=== PATIENT | male | born 1975 | race Caucasian/White ===

== ENCOUNTER 2017-12-06 22:46 | Inpatient (IN) | payer OTHER ==
[~2017-12-06] VITALS: Ht 180.3 cm; Wt 99.9 kg
[~2017-12-06 22:46] MED LIST: ASPIR 8181 MG PO; ASPIRIN EC81 MG PO; ATENOLOL100 MG PO; CYMBALTA30 MG PO; GABAPENTIN300 MG PO; GABAPENTIN600 MG PO; HUMALOG100 UNITS/ SQ; HUMULIN SQ; LIPITOR40 MG PO; LISINOPRIL10 MG PO; NEURONTIN300 MG PO; NOVOLIN N100 UNIT/1 SQ; PLAVIX75 MG PO; TRAZODONE HCL100 MG PO
--- OUTSIDE RECORDS SUMMARY | 2017-12-06 22:49 | XMS REPORT | Clinical Summary ---
Author Author TEJINDER [facility] Address Unknown Phone Unavailable Care Team Providers Care Hospitalist Physician Name Role Phone PCP Unavailable Allergies Active Allergy Reactions Severity Noted Date Comments Levofloxacin Itching 07/29/2014 Ketorolac 12/14/2012 Severe hypertension Iodine Containing Rash Low 12/14/2012 swelling Multivitamin Morphine Hcl Rash Low 03/19/2014 Metoclopramide Hcl Rash Low 12/14/2012 AMS Ondansetron Hcl (Pf) Rash Low 12/14/2012 AMS Current Medications Prescription Sig. Disp. Refills Start End Date Status Date clopidogrel (PLAVIX) 75 Take 75 mg by mouth Active mg tablet daily. DULoxetine (CYMBALTA) 30 Take 30 mg by mouth Active MG capsule daily. aspirin 81 MG EC tablet Take 81 mg by mouth Active daily. atorvastatin (LIPITOR) 40 Take 40 mg by mouth Active MG tablet daily. HYDROcodone-acetaminophen Take 1 tablet by mouth Active (NORCO 5-325) 5-325 mg every 6 (six) hours as per tablet needed. metroNIDAZOLE (FLAGYL) Take 1 tablet (500 mg 21 tablet 0 08/02/19 Active 500 MG tablet total) by mouth 3 (three) 15 times daily. metoprolol (LOPRESSOR) 25 Take 25 mg by mouth 2 Active MG tablet (two) times daily. ISOSORBIDE DINITRATE ORAL Take by mouth. Active lisinopril Take 10 mg by mouth Active (PRINIVIL,ZESTRIL) 10 MG daily. tablet insulin lispro (HUMALOG) Inject 18 Units Active 100 unit/mL InPn subcutaneously 3 (three) times daily with meals. insulin glargine Inject 65 Units Active (BASAGLAR KWIKPEN) 100 subcutaneously nightly. unit/mL (3 mL) InPn escitalopram oxalate Take 10 mg by mouth Active (LEXAPRO) 10 MG tablet daily. zolpidem (AMBIEN) 10 mg Take 10 mg by mouth as Active tablet needed for Insomnia. Active Problems Problem Noted Date Dehydration 07/29/2014 DM type 1 (diabetes mellitus, type 1) ([facility]) 07/29/2014 Abdominal pain, other specified site 03/19/2014 CAD (coronary artery disease) 03/19/2014 Overview: As per patient report he had an DE 4 years ago and had 2 stent placed. Rash 03/19/2014 Hyperglycemia 03/18/2014 Social History Tobacco Use Types Packs/Day Years Used Date Never Smoker Alcohol Use Drinks/Week oz/Week Comments No Sex Assigned at Date Recorded Not on file Last Filed Vital Signs Not on file Plan of Treatment Health Maintenance Due Date Last Done Comments INFLUENZA VACCINE 04/09/2018 Results Not on fileafter 12/05/2016
--- OUTSIDE RECORDS SUMMARY | 2017-12-06 22:49 | XMS REPORT ---
Author Author [facility] Address Unknown Phone Unavailable Care Team Providers Care Otr Tanker Truck Driver Name Role Phone ARTURO RL Unavailable Unavailable ANTOINETTE ROSA Unavailable Unavailable ELYSIA CURRIE Unavailable Unavailable Problems This patient has no known problems. Allergies, Adverse Reactions, Alerts This patient has no known allergies or adverse reactions. Medications This patient has no known medications. Results Test Description Test Time Test Comments Text Results Atomic Results Result Comments CT ABDOMEN/PELVIS WO [facility] [address] [place] [address] Patient Name: COLLEEN KAPOOR MR #: [id number] : 1975 Age/Sex: 42/M Req #: [id number] Adm Physician: Ordered by: CLAUDINE BARKER Report #: [id number] Location: ER Room/Bed: _ Procedure: [id number] CT/CT ABDOMEN/PELVIS WO Exam Date: Exam Time: REPORT STATUS: Signed PROCEDURE: CT ABDOMEN AND PELVIS WITHOUT CONTRAST TECHNIQUE: The abdomen and pelvis were scanned utilizing a multidetector helical scanner from the diaphragm to the lesser trochanter without IV or oral contrast material per physician's order. Coronal and sagittal multiplanar reformations were obtained. DLP: 881.91 mGy-cm COMPARISON: [facility], CT, CT ABDOMEN/ PELVIS WO, 08/05/2016, 11:59. INDICATIONS: BACK PAIN, ABDOMINAL PAIN FINDINGS: ABSENCE OF INTRAVENOUS CONTRAST DECREASES SENSITIVITY FOR DETECTION OF FOCAL LESIONS AND VASCULAR PATHOLOGY. LOWER THORAX: Coronary artery calcification. HEPATOBILIARY: No focal hepatic lesions. No biliary ductal dilatation. Gallbladder is absent. SPLEEN: No splenomegaly. PANCREAS: No focal masses or ductal dilatation. ADRENALS: No adrenal nodules. KIDNEYS/URETERS: No hydronephrosis, stones or solid mass lesions. Cystic lesion in the interpolar region of the right kidney appears unchanged. PELVIC ORGANS/BLADDER: Unremarkable. PERITONEUM / RETROPERITONEUM: No free air or fluid. LYMPH NODES: No lymphadenopathy. VESSELS: Vascular calcification. GI TRACT: No distention or wall thickening. Surgical clips near the cecum. BONES AND SOFT TISSUES: Mild degenerative changes of the spine. IMPRESSION: No acute abnormality within the abdomen or pelvis. Cystic lesion of the right kidney appears unchanged. Oly Forbes D.O. Dictated by: Oly Forbes D.O. on 2017 at 16:04 Electronically approved by: Oly Forbes D.O. on 2017 at 16:04 Dictated By: OLY FORBES DO 1604 Transcribed By: VENITA on 04/17/17 1604 COPY TO: CLAUDINE BARKER Stress Test - Treadmill ONLY [place] [address] Patient Name : COLLEEN KAPOOR MR #: [id number] : 1975 Age/Sex: 42/M Adm Physician : ANTOINETTE ROSA MD Admit Date : Location : [place] Room/Bed : __ REPORT: Cardiology Report DATE OF STUDY: April PROCEDURE TITLE Rest stress single isotope with SPECT imaging with pharmacologic stress and gated SPECT imaging. INDICATIONS: Chest pain. PROCEDURE: Pharmacologic stress testing was performed with regadenoson per protocol. Heart rate was 106 beats per minute at baseline and increased to 136 beats per minute during the regadenoson infusion. The rest blood pressure was 137/88 and increased to 161/93 mmHg, which is a normal response. The patient did not develop chest pain during the procedure. The resting electrocardiogram demonstrated sinus tachycardia RSR prime. There were no ST segment changes consistent with myocardial ischemia. Myocardial perfusion imaging was performed at rest following the injection of 11 mCi of tetrofosmin. At peak pharmacologic effect, the patient was injected with 31.7 millicuries of tetrofosmin. Gated post tomographic imaging was performed. FINDINGS: The overall quality of the study is fair. Left ventricular cavity is noted to be normal size on the rest and stress studies. SPECT images demonstrate homogeneous tracer distribution throughout the myocardium. Gated SPECT imaging reveals normal myocardial thickening and wall motion. Left ventricular ejection fraction was calculated to be 64%. IMPRESSION: Myocardial perfusion imaging is normal. Overall left ventricular systolic function was normal without regional wall motion abnormalities. Job#: [id number] Signature Date Dictated By: ANTOINETTE ROSA MD Transcribed By: [facility] on 04/17/17 < Electronically signed by ANTOINETTE ROSA MD><<Signature on File>>04/23/17 4979 COPY TO: MRI RIGHT KNEE WO [place] [address] Patient Name: COLLEEN KAPOOR MR #: [id number] : 1975 Age/Sex: 41/M Req #: [id number] Adm Physician: Ordered by: ELYSIA CURRIE DO Report #: [id number] Location: [facility] Room/Bed: Procedure: [id number] MRI/MRI RIGHT KNEE WO Exam Date: 03/28/17 Exam Time: 1010 REPORT STATUS: Signed Right knee MRI without contrast. History: Knee pain. Sprain. Twisting injury. Comparison: None. Technique: Multiplanar multi-sequence MRI of the knee without contrast. Findings: Medial compartment: No meniscal tear, cartilage abnormality, or MCL tear. Lateral compartment: No meniscal tear or cartilage abnormality. The LCL complex is normal. There is a bone contusion/microtrabecular fracture with bone marrow edema at the posterior lateral tibial plateau with mild adjacent soft tissue edema. No definite cortical fracture is seen. Findings are best seen on coronal series 5 image 15 through 17 and sagittal series 4 image 29 through 34. Intercondylar notch: The ACL and PCL are intact. Patellofemoral compartment: No chondromalacia or patellar dislocation. Extensor mechanism: The quadriceps and patellar tendons are normal. Other findings: There is a joint effusion and synovitis. There is no acute fracture, subluxation or avascular necrosis. IMPRESSION: Bone contusion/microtrabecular fracture with bone marrow edema at the posterior lateral tibial plateau with mild adjacent soft tissue edema. No definite cortical fracture is seen. Signed by: Dr. Mejia Hickman M.D. on 03/28/2017 11:38 AM Dictated By: MEJIA HICKMAN MD, MD 1138 Transcribed By: RYAN on 03/28/17 1138 COPY TO: ELYSIA CURRIE DO
[2017-12-06] MEDS ORDERED: PANTOPRAZOLE 40 MG 10ML VIAL IV STA (23:04)
[2017-12-06] MEDS ORDERED: HYDROMORPHONE 1MG/1ML INJ IV STA (23:04)
[2017-12-06] MEDS ORDERED: SODIUM CHLORIDE 0.9% 500ML 500 ML IV ONE (23:15)
[2017-12-06 23:24] LABS: BASOPHILS # (AUTO) 0.1 (0.0-0.1); BASOPHILS % 1.1 % (0.0-1.0); EOSINOPHILS # (AUTO) 0.2 (0.0-0.4); EOSINOPHILS % 2.5 % (0.0-6.0); HEMATOCRIT 39.6 % (38.2-49.6); HEMOGLOBIN 13.2 g/dL (14.0-18.0); LYMPHOCYTES % 26.8 % (18.0-39.1); MEAN CORPUSCULAR HEMOGLOBIN 27.7 pg (28-32); MEAN CORPUSCULAR HGB CONC 33.3 g/dL (31-35); MEAN CORPUSCULAR VOLUME 83.2 fL (81-99); MONOCYTES # (AUTO) 0.7 (0.2-0.8); MONOCYTES % 8.6 % (4.4-11.3); NEUTROPHILS # (AUTO) 4.6 (2.1-6.9); NEUTROPHILS % 60.6 % (38.7-80.0); PLATELET COUNT 270 x10e3/uL (140-360); RED BLOOD COUNT 4.76 x10e6/uL (4.3-5.7); RED CELL DISTRIBUTION WIDTH 13.6 % (11.7-14.4)
[2017-12-06 23:28] LABS: INR 0.95; PARTIAL THROMBOPLASTIN TIME 28.2 seconds (23.8-35.5); PROTHROMBIN TIME 11.9 seconds (11.9-14.5)
[2017-12-06 23:30] LABS: BILIRUBIN,URINE NEGATIVE (NEGATIVE); CLARITY,URINE CLEAR (CLEAR); COLOR,URINE YELLOW (YELLOW); KETONES,URINE TRACE (NEGATIVE); LEUKOCYTE ESTERASE ,URINE NEGATIVE (NEGATIVE); NITRITE,URINE NEGATIVE (NEGATIVE); PROTEIN,URINE DIPSTICK 1+ (NEGATIVE); URINE UROBILINOGEN 0.2 mg/dL (0.2 - 1)
[2017-12-06 23:37] LABS: ALANINE AMINOTRANSFERASE 18 IU/L (0-55); ALBUMIN/GLOBULIN RATIO 1.2 (0.8-2.0); ALKALINE PHOSPHATASE 128 IU/L (40-150); ANION GAP 16.3 mmol/L (8-16); BLOOD UREA NITROGEN 18 mg/dL (7-26); BUN/CREATININE RATIO 15 (6-25); CALCIUM 9.7 mg/dL (8.4-10.2); CARBON DIOXIDE 20 mmol/L (22-29); CHLORIDE 102 mmol/L (98-107); CREATINE KINASE 112 IU/L (30-200); CREATININE, SERUM 1.19 mg/dL (0.72-1.25); EST GLOMERULAR FILTRATION RATE > 60 ML/MIN (60-); GLUCOSE 346 mg/dL (74-118); POTASSIUM 4.3 mmol/L (3.5-5.1); SODIUM 134 mmol/L (136-145)
[2017-12-06 23:41] LABS: BACTERIA,URINE RARE /HPF; WBC,URINE (MAN) 0-5 /HPF (0-5)
[2017-12-06 23:42] LABS: EPITHELIAL CELLS,URINE RARE /LPF; MUCUS,URINE MODERATE (RARE)
[2017-12-06 23:43] LABS: AMPHETAMINES SCREEN,URINE NEGATIVE (NEGATIVE); BENZODIAZEPINES SCREEN,URINE NEGATIVE (NEGATIVE); PHENCYCLIDINE SCREEN,URINE NEGATIVE (NEGATIVE)
[2017-12-07] VITALS (7 sets, daily range): BP systolic 102–138; BP diastolic 64–75
[2017-12-07] MEDS ORDERED: SODIUM CHLORIDE 0.9% 50ML 50 ML ONE (02:14)
[2017-12-07] MEDS ORDERED: IOPAMIDOL 370 MG/ML 200 ML INFUS..BTL INJ ONE (02:14)
--- NOTE | 2017-12-07 02:38 | Diagnostic Imaging Report ---
EXAM: CT CHEST W DATE: 12/07/2017 11:04 PM INDICATION: Sharp chest pain, concern for pulmonary embolism. Recent CABG. COMPARISON: None TECHNIQUE: Multidetector CT scanning of the chest was performed. Coronal and sagittal multiplanar reformations were obtained. IV Contrast: 75 ml Isovue 370/300 FINDINGS: Motion artifact in the lower lobes precludes evaluation of the segmental/subsegmental arteries. Otherwise no evidence of acute more central pulmonary embolism to the lobar level. Main pulmonary artery is normal in caliber, 2.2 cm. LUNGS AND PLEURA: Small left pleural effusion with minimal associated atelectasis. HEART, MEDIASTINUM, VESSELS: Postsurgical changes status post recent median sternotomy and CABG with mild fluid and stranding in the anterior mediastinum and along the sternum. Mild cardiomegaly with small pericardial effusion. Coronary artery calcifications. Incidental subcentimeter thyroid nodules. No adenopathy. UPPER ABDOMEN: Unremarkable. MUSCULOSKELETAL: No acute findings. IMPRESSION: 1. Degraded by motion artifact. Otherwise no evidence of acute pulmonary embolism, as above. 2. Postsurgical changes status post recent median sternotomy and CABG. 3. Small pericardial effusion and small left effusion. Signed by: Dr Rocio Wren MD on 12/07/2017 2:34 AM
[2017-12-07] MEDS ORDERED: HYDROMORPHONE 2MG/ML INJ IV ONE (03:00)
[2017-12-07] MEDS ORDERED: HYDROMORPHONE 1MG/1ML INJ IV PRN (03:15)
[2017-12-07] MEDS ORDERED: DIPHENHYDRAMINE HCL 25 MG CAP PO ONE ×2 (03:15)
--- OUTSIDE RECORDS SUMMARY | 2017-12-07 03:18 | XMS REPORT | Clinical Summary ---
Author Author TEJINDER [facility] Address Unknown Phone Unavailable Care Team Providers Care Inspector Watch Parts Name Role Phone PCP Unavailable Allergies Active [...] DM type 1 (diabetes mellitus, type 1) ([facility]) 07/29/2014 Abdominal pain, other specified site 03/19/2014 CAD (coronary artery disease) 03/19/2014 Overview: As per patient report he had an SC 4 years ago and had 2 stent placed. Rash 03/19/2014 Hyperglycemia 03/18/2014 Social History Tobacco Use Types Packs/Day Years Used Date Never Smoker Alcohol Use Drinks/Week oz/Week Comments No Sex Assigned at Date Recorded Not on file Last Filed Vital Signs Not on file Plan of Treatment Health Maintenance Due Date Last Done Comments INFLUENZA VACCINE 04/09/2018 Results Not on fileafter 12/06/2016
[2017-12-07] MEDS ORDERED: DEXTROSE 50% SYRINGE 50 ML IV PRN (04:00)
[2017-12-07] MEDS ORDERED: ISOSORBIDE MONO30 MG PO (05:02)
[2017-12-07] MEDS ORDERED: METOPROLOL TART50 MG PO (05:02)
[2017-12-07] MEDS: FAMOTIDINE 20 MG/2 ML VIAL IV SCH ×2 (05:30→15:15)
[2017-12-07] MEDS: HYDROMORPHONE 2MG/ML INJ IV PRN ×6 (06:34→22:26)
[2017-12-07 07:03] LABS: CREATINE KINASE MB 1.6 ng/mL (0-5.0)
[2017-12-07] MEDS: INSULIN REGULAR, HUMAN 100 UNIT/1 ML 3ML VIAL SQ SCH ×4 (07:30→20:47)
[2017-12-07] MEDS: CLOPIDOGREL BISULFATE 75 MG TAB PO SCH (09:00)
[2017-12-07] MEDS: ASPIRIN 325 MG TAB EC PO SCH (09:00)
--- NOTE | 2017-12-07 10:39 | Consultation ---
DATE OF CONSULTATION: December 07, 2017 CARDIOLOGY CONSULTATION REQUESTING PHYSICIAN: Dr. Smith REASON FOR CONSULTATION: Chest pain. HISTORY OF PRESENT ILLNESS: Mr. Davila is a 42-year-old male who is well known to our practice and was actually seen in our clinic last week. He recently had 4-vessel bypass 3 weeks ago. He states that he came into the ER yesterday due to ongoing chest pain on the right side for the last 2 to 3 days. He states that the pain is aching and severe and scattered on the right side of his chest. He states that this pain does get worse upon deep breaths and also with exertion. His incision site from his bypass is still healing. He also reports swelling on his left lower extremity where his vessels were harvested. At the time of this consultation, he denies any shortness of breath, fever, chills, abdominal pain, nausea, vomiting, constipation or urinary problems. REVIEW OF SYSTEMS: Negative, except as mentioned above. PAST MEDICAL HISTORY: Includes: 1. Coronary artery disease, status post 4-vessel bypass 3 weeks ago. 2. Diabetes mellitus. 3. Hyperlipidemia. 4. TIAs. 5. Pericarditis. PAST SURGICAL HISTORY: Cholecystectomy, appendectomy, ankle surgery. SOCIAL HISTORY: Denies any illicit drug use. He is and has children. OBJECTIVE VITALS: Temperature 97.0, pulse 99, respiratory rate 20, blood pressure 138/71. Oxygen saturation 98% on room air. LABS: WBC 7.58, hemoglobin 13.2, hematocrit 39.6, platelets 270. Sodium 134, potassium 4.3, BUN 18, creatinine 1.19. Glucose 215. Calcium 9.7. AST 17, ALT 18, alkaline phosphatase 128, CK-MB 1.60, troponin 0.004. BNP 42. Toxicology positive for opiates. Chest CT with no evidence of acute pulmonary emboli, postsurgical changes status post coronary artery bypass graft, a small pericardial effusion and a small left effusion noted. TELEMETRY: Sinus rhythm. CARDIOVASCULAR MEDICATIONS 1. Plavix 75 p.o. daily. 2. Aspirin 325 p.o. daily. PHYSICAL EXAMINATION GENERAL: Alert and oriented times 3, resting comfortably in bed, does not appear to be in any acute distress. NECK: Supple. No JVD noted. LUNGS: Clear to auscultation throughout. No wheezing, rhonchi or crackles. CARDIOVASCULAR: Regular rate and rhythm. Normal S1, S2. S4 auscultated. ABDOMEN: Soft and nontender. LOWER EXTREMITIES: There are 2+ pedal pulses. Trace edema to the left lower extremity. IMPRESSION 1. Atypical chest pain. 2. Coronary artery disease, status post coronary artery bypass graft 3 weeks ago. 3. History of pericarditis. 4. Hypertension. 5. Hyperlipidemia. 6. Diabetes mellitus, type 2. PLAN: We will obtain a repeat echocardiogram this morning. Maintain the patient on telemetry. Pain in the right upper chest likely musculoskeletal, status post sternotomy and recent surgery. Consider pain community resource consultant. Continue the above-listed cardiac medications. In addition, add a beta sandra and a statin. Thank you, Dr. Smith, for this consultation and allowing us to participate in this patient's care. Dictated by Cecile Ellison NP. Job#: [id number]
[2017-12-07] MEDS: DIPHENHYDRAMINE HCL 25 MG CAP PO PRN ×2 (10:45→21:32)
[2017-12-07] MEDS: PROMETHAZINE 25MG/ NS 50ML (IV) IV PRN ×2 (12:30→18:49)
[2017-12-07 15:17] LABS: CREATINE KINASE MB 1.9 ng/mL (0-5.0)
[2017-12-07] MEDS: ISOSORBIDE MONONITRATE 30 MG TAB CR PO SCH (16:20)
[2017-12-07] MEDS: METOPROLOL TARTRATE 50 MG TAB PO SCH (16:21)
[2017-12-07] MEDS ORDERED: ATORVASTATIN 20 MG TAB PO SCH (21:00)
[2017-12-07 22:36] LABS: CREATINE KINASE MB 1.7 ng/mL (0-5.0)
[2017-12-08] VITALS (8 sets, daily range): BP systolic 107–121; BP diastolic 59–71
[2017-12-08] MEDS: HYDROMORPHONE 2MG/ML INJ IV PRN ×7 (01:30→23:04)
[2017-12-08] MEDS: PROMETHAZINE 25MG/ NS 50ML (IV) IV PRN ×4 (01:30→21:00)
[2017-12-08] MEDS: FAMOTIDINE 20 MG/2 ML VIAL IV SCH ×2 (04:15→15:38)
[2017-12-08 07:05] LABS: BASOPHILS # (AUTO) 0.1 (0.0-0.1); BASOPHILS % 1.1 % (0.0-1.0); EOSINOPHILS # (AUTO) 0.4 (0.0-0.4); EOSINOPHILS % 5.4 % (0.0-6.0); HEMATOCRIT 39.6 % (38.2-49.6); HEMOGLOBIN 12.9 g/dL (14.0-18.0); LYMPHOCYTES # (AUTO) 1.8 (1.0-3.2); MEAN CORPUSCULAR HGB CONC 32.6 g/dL (31-35); MEAN CORPUSCULAR VOLUME 86.1 fL (81-99); MONOCYTES # (AUTO) 0.6 (0.2-0.8); MONOCYTES % 8.8 % (4.4-11.3); NEUTROPHILS # (AUTO) 3.6 (2.1-6.9); NEUTROPHILS % 56.1 % (38.7-80.0); PLATELET COUNT 262 x10e3/uL (140-360); RED CELL DISTRIBUTION WIDTH 13.9 % (11.7-14.4)
[2017-12-08 07:41] LABS: ALANINE AMINOTRANSFERASE 17 IU/L (0-55); ALBUMIN 3.5 g/dL (3.5-5.0); ALBUMIN/GLOBULIN RATIO 1.1 (0.8-2.0); ALKALINE PHOSPHATASE 122 IU/L (40-150); ANION GAP 11.7 mmol/L (8-16); BLOOD UREA NITROGEN 13 mg/dL (7-26); BUN/CREATININE RATIO 16 (6-25); CALCIUM 9.4 mg/dL (8.4-10.2); CARBON DIOXIDE 26 mmol/L (22-29); CHLORIDE 105 mmol/L (98-107); CHOL/HDL RATIO 6.3 (3.9-4.7); CHOLESTEROL 214 MD/DL (0-199); CREATININE, SERUM 0.81 mg/dL (0.72-1.25); EST GLOMERULAR FILTRATION RATE > 60 ML/MIN (60-); GLUCOSE 171 mg/dL (74-118); HDL CHOLESTEROL 34 MG/DL (40-60); LDL CHOLESTEROL 145 MG/DL (60-130); POTASSIUM 3.7 mmol/L (3.5-5.1); SODIUM 139 mmol/L (136-145); TRIGLYCERIDES 173 MG/DL (0-149)
[2017-12-08] MEDS: ISOSORBIDE MONONITRATE 30 MG TAB CR PO SCH ×2 (08:19→17:36)
[2017-12-08] MEDS: METOPROLOL TARTRATE 50 MG TAB PO SCH ×2 (08:19→17:36)
[2017-12-08] MEDS: CLOPIDOGREL BISULFATE 75 MG TAB PO SCH (08:19)
[2017-12-08] MEDS: ASPIRIN 325 MG TAB EC PO SCH (08:19)
[2017-12-08] MEDS: INSULIN REGULAR, HUMAN 100 UNIT/1 ML 3ML VIAL SQ SCH ×4 (08:21→21:00)
[2017-12-08] MEDS ORDERED: SODIUM CHLORIDE 0.9% 250ML 250 ML ONE (15:10)
[2017-12-08] MEDS: CELECOXIB 100 MG CAP PO SCH (17:36)
--- NOTE | 2017-12-08 19:42 | Progress Note ---
DATE: December 08, 2017 CARDIOLOGY PROGRESS NOTE: SUBJECTIVE: The patient continues to complain of right-sided chest pain that is worse upon coughing and touching of his right side. Otherwise, denies any palpitations or cough. OBJECTIVE VITAL SIGNS: Temperature 97.8, pulse 95, respiratory rate 20. Blood pressure 113/64, oxygen saturation 95% on room air. General: Alert and oriented x3, resting comfortably in bed. Does not appear to be in any acute distress. Lungs: Clear to auscultation throughout, no wheezing, no rhonchi or crackles. Cardiovascular: Regular rate and rhythm. Normal S1 and S2. S4 auscultated. Abdomen: Soft and nontender. Lower extremities: 2+ pedal pulses. No edema. CARDIOVASCULAR MEDICATIONS: Isosorbide 30 mg p.o. b.i.d., Plavix 75 p.o. daily. Aspirin 325 p.o. daily. Atorvastatin 20 p.o. nightly. Celebrex 100 mg p.o. b.i.d. LABS: WBC 6.46, hemoglobin 12.9, hematocrit 39.6, platelets 262,000. Sodium 39, potassium 3.7, BUN 13, creatinine 0.81. Glucose 204. AST 14, ALT 17 vital. Triglycerides 173, cholesterol 214. LDL 145. TELEMETRY: Sinus rhythm. ASSESSMENT: 1. Atypical chest pain, likely musculoskeletal . 2. Coronary artery disease, status post coronary artery bypass graft 3 weeks ago. 3. History of pericarditis. 4. Hypertension. 5. Hyperlipidemia. 6. Diabetes mellitus type 2. 7. Dyslipidemia. PLAN: Up-titrate statins to 40 mg, atorvastatin. Continue the above medications. Celebrex started today for musculoskeletal pain. We will continue to follow the patient closely. Okay with discharge and followup with cardiology in the next 1-2 weeks. Will continue to monitor. Dictated by: Cecile Ellison NP Job#: [id number]
[2017-12-08] MEDS ORDERED: ATORVASTATIN 40 MG TAB PO SCH (21:00)
[2017-12-08] MEDS ORDERED: ATORVASTATIN 20 MG TAB PO SCH (21:00)
[2017-12-09] VITALS: BP 114/58
[2017-12-09] MEDS: DIPHENHYDRAMINE HCL 25 MG CAP PO PRN (01:17)
[2017-12-09] MEDS: FAMOTIDINE 20 MG/2 ML VIAL IV SCH ×2 (03:01→15:17)
[2017-12-09] MEDS: PROMETHAZINE 25MG/ NS 50ML (IV) IV PRN ×2 (03:02→09:30)
[2017-12-09] MEDS: HYDROMORPHONE 2MG/ML INJ IV PRN ×4 (03:02→13:21)
[2017-12-09 04:00] VITALS: BP 113/66
[2017-12-09 07:10] VITALS: BP 119/70
[2017-12-09 07:25] VITALS: BP 119/70
[2017-12-09] MEDS: CELECOXIB 100 MG CAP PO SCH (08:30)
[2017-12-09] MEDS: METOPROLOL TARTRATE 50 MG TAB PO SCH (08:30)
[2017-12-09] MEDS: CLOPIDOGREL BISULFATE 75 MG TAB PO SCH (08:30)
[2017-12-09] MEDS: ISOSORBIDE MONONITRATE 30 MG TAB CR PO SCH (08:30)
[2017-12-09] MEDS: ASPIRIN 325 MG TAB EC PO SCH (08:30)
[2017-12-09] MEDS: INSULIN REGULAR, HUMAN 100 UNIT/1 ML 3ML VIAL SQ SCH ×2 (08:35→11:51)
[2017-12-09 11:35] VITALS: BP 106/64
[2017-12-09] MEDS ORDERED: COLCHICINE 0.6 MG TAB PO SCH (12:30)
--- NOTE | 2017-12-09 14:05 | Progress Note ---
DATE: December 09, 2017 CARDIOLOGY PROGRESS NOTE SUBJECTIVE: Reporting diffuse generalized pain, most pronounced in chest and lower extremities. OBJECTIVE VITAL SIGNS: Temperature 97.6, heart rate 92, respiratory rate 19, blood pressure 106/64, O2 sat 95% on room air. GENERAL: No acute distress. CHEST: Clear to auscultation. CARDIOVASCULAR: Regular rate and rhythm. Normal S1 and S2. No S3. No S4. Sternotomy scar noted. ABDOMEN: Soft, nontender. EXTREMITIES: Trace edema. Tenderness to light touch to lower extremities. CARDIOVASCULAR MEDICATIONS: Reviewed. On: 1. Isosorbide mononitrate 30 mg b.i.d. 2. Metoprolol tartrate 50 mg b.i.d. 3. Clopidogrel 75 mg daily. 4. Aspirin 325 mg daily. 5. Atorvastatin 40 mg nightly. ASSESSMENT: Patient with history of coronary artery disease. Chronic pain reported. Recommend continued monitoring from a cardiovascular standpoint, resuming cardiovascular medications as well as consideration of pain management consultation. When he was in [facility], he reported similar complaints. The pain was at the time somewhat difficult to control. However, the patient did achieve reported pain control for discharge. Did not follow up with pain management as outpatient. Component of neuropathy is highly suspected. Job#: [id number]
[2017-12-09] MEDS ORDERED: ACETAMINOPHEN 325 MG TAB PO PRN (15:45)
[2017-12-09 16:28] VITALS: BP 169/95
--- NOTE | 2017-12-10 21:45 | Discharge Summary ---
Patient is a 42-year-old male who had a history of coronary artery bypass grafting in the past, came to the hospital complaining of severe chest pain. Patient was seen already by Dr. Gee, baby registry sales consultant. Cardiac enzymes are completely normal. The EKG is unremarkable. There is no evidence of any ST segment elevation or depression. Dr. Gee, cardiology, saw the patient. His impression was atypical chest pain, most likely costochondral; hypertension; history of pericarditis. Echocardiogram was done. It showed good ejection fraction of 60% to 65% and very small pleural effusion, most likely secondary to the bypass. Patient is demanding to go back to the Dilaudid. Apparently, he has been watching the clock and taking Dilaudid round the clock whether he is in pain or not. When I discontinued Dilaudid, he was extremely upset about that. He did not want to stop the Dilaudid. I told the patient that right now, we do not have any evidence of any significant condition to keep the patient in the hospital. The baby registry sales consultant also agrees with that. We are suspecting that the patient might have some addiction to Dilaudid. The pain is completely out of proportion to the pain that he demand Dilaudid, so I explained the patient that he is most likely going to be going home soon that he does not need to take Dilaudid until the last minute of the discharge. So, we discontinued Dilaudid. The patient is refusing to take any other medication and he will be going home today. We asked the patient to follow up with his a regular baby registry sales consultant or with Dr. Gee as an outpatient or go to the ER should the chest pain worsen. The pain is on the right side, atypical. Workup has been completely negative so far. Blood pressure 106/64, temperature 97.6, heart rate 92 per minute, respiratory rate 19 per minute, oxygen saturation 95%. Lab work shows sodium 139, potassium 3.7, chloride 105, CO2 26, BUN 13, creatinine 0.81, glucose 171. On the CBC, white blood count 6.46, hemoglobin 12.9, hematocrit 39.6, platelet count 262,000. PT 11.9, PTT 28.2, INR was 0.95. AST 14, ALT 17, total bilirubin 0.5, alkaline phosphatase 122. He even had a CT scan of the chest which showed no evidence of pulmonary embolism. It showed postsurgical changes status post recent CABG, small pericardial effusion, small left pleural effusion. Nothing significant to explain the pain. Patient as I said is going to be going home today. Dr. Gee, cardiology, already cleared him for discharge. He will continue with home medications which include metoprolol 50 mg twice a day, Lipitor 40 mg daily. He is also on aspirin 81 mg daily. Patient is told to go to the emergency room should the symptoms worsen or to see his baby registry sales consultant as an outpatient. BEVERLEY HOLLINGSWORTH MD Job#: [id number] GE
--- NOTE | 2017-12-11 15:43 | Discharge Summary ---
The patient is refusing to sign any discharge instruction. He is refusing to take any medications. So, technically he is leaving against medical advice and he is refusing for us to give him any discharge instructions or discharge medications. BEVERLEY HOLLINGSWORTH MD Job#: [id number]
== END 2017-12-09 17:23 | disposition home or self-care (01) | DRG 313 ==
LOC: ER 22:46 → ERHOLD 12-07 03:15 → MED/SURG 12-07 03:38
DX: R07.89 Other chest pain (principal); I10 Essential (primary) hypertension; I25.119 Atherosclerotic heart disease of native coronary artery with unspecified angina pectoris; E78.5 Hyperlipidemia, unspecified; E11.8 Type 2 diabetes mellitus with unspecified complications; Z79.4 Long term (current) use of insulin
CPT/HCPCS: 36415; 71260; 80053; 80061; 80307; 81001; 82550; 82553; 82948; 83735; 83880; 84484; 85025; 85379; 85610; 85730; 93005; 93306; 99284; J2550; J7040; J7050; Q9967

== ENCOUNTER 2018-05-04 13:37 | Emergency (ER) | payer OTHER ==
[~2018-05-04] VITALS: Ht 180.3 cm; Wt 99.8 kg
[~2018-05-04 13:37] MED LIST changes: +ISOSORBIDE MONO30 MG PO; +METOPROLOL TART50 MG PO
--- OUTSIDE RECORDS SUMMARY | 2018-05-04 13:41 | XMS REPORT | Clinical Summary ---
Author Author [facility] Address Unknown Phone Unavailable Care Team Providers Care Mine Production Engineer Name Role Phone Mariano Novak MD PCP Allergies Active Allergy Reactions Severity Noted Date Comments Morphine 12/10/2017 Metoclopramide Hcl 12/10/2017 Ketorolac 12/10/2017 Ondansetron Hcl 12/10/2017 Current Medications Prescription Sig. Disp. Refills Start End Date Status Date atorvastatin (LIPITOR) 40 Take 40 mg by mouth Active MG tablet daily. clopidogrel (PLAVIX) 75 Take 75 mg by mouth Active mg tablet daily. DULoxetine (CYMBALTA) 30 Take 30 mg by mouth Active MG capsule daily. insulin GLARGINE (LANTUS Inject 65 Units under the Active SOLOSTAR) 100 unit/mL skin daily. injection (pen) HUMALOG U-100 INSULIN 100 INJECT 20 UNITS 6 11/14/19 Active unit/mL injection SUBCUTANEOUSLY THREE 18 TIMES A DAY BEFORE MEALS. lisinopril Take 10 mg by mouth Active (PRINIVIL,ZESTRIL) 10 mg daily. tablet isosorbide mononitrate TAKE ONE (1) TABLET(S) BY 1 11/16/19 Active (IMDUR) 30 MG 24 hr MOUTH TWICE A DAY. 18 tablet nitroglycerin (NITROSTAT) DISSOLVE ONE (1) 0 11/14/19 Active 0.4 MG SL tablet TABLET(S) UNDER THE 18 TONGUE EVERY 5 MINUTES NEEDED FOR CHEST PAIN. pantoprazole (PROTONIX) TAKE ONE (1) TABLET(S) BY 1 11/23/19 Active 40 MG EC tablet MOUTH TWICE A DAY BEFORE 18 MEALS. zolpidem (AMBIEN) 5 MG TAKE ONE (1) TABLET(S) BY 0 11/28/19 Active tablet MOUTH AT BEDTIME 18 NEEDED. aspirin (ECOTRIN) 81 MG Take 81 mg by mouth Active enteric coated tablet daily. metoprolol succinate XL Take 1 tablet by mouth 3 11/21/19 Active (TOPROL-XL) 50 mg 24 hr daily. 18 tablet tiZANidine (ZANAFLEX) 4 Take 1 tablet by mouth 0 11/21/19 Active MG tablet every 8 (eight) hours as 18 needed. furosemide (LASIX) 40 Take 40 mg by mouth Active mg/4 mL solution oral daily. solution aspirin 325 MG tablet TAKE ONE (1) TABLET(S) BY 0 11/22/19 12/11/19 Discontin MOUTH EVERY EIGHT HOURS 18 18 ued WITH FOOD. FOR 1 WEEK THEN CONTINUE WITH ASPIRIN 81MG DAILY. metoprolol tartrate Take 50 mg by mouth 2 12/11/19 Discontin (LOPRESSOR) 25 mg tablet (two) times a day. 18 ued promethazine (PHENERGAN) TAKE ONE (1) TABLET(S) BY 0 11/28/19 01/17/20 Discontin 12.5 MG tablet MOUTH EVERY TWELVE HOURS 18 18 ued NEEDED. Active Problems Problem Noted Date SVT (supraventricular tachycardia) (HCC) 01/15/2018 Hypovolemia 01/14/2018 Inappropriate sinus tachycardia 01/12/2018 Coronary artery disease 01/12/2018 High cholesterol 01/12/2018 Diabetes mellitus type I (HCC) 01/12/2018 Stroke (HCC) 01/12/2018 Overview: TIA X2 Hx of CABG 01/12/2018 Chest pain 12/10/2017 Encounters Date Type Specialty Care Team Description 01/16/2018 Anesthesia Gastroenterology Caio Valadez MD Event 01/16/2018 Procedure Pass Gastroenterology 01/16/2018 Surgery Gastroenterology Jose Luis Quinn MD ESOPHAGOGASTRODUODENOSCOP Y (EGD) 01/11/2018 Hospital General Surgery Dago Carpio DO Inappropriate sinus - Encounter Marshal Mckeon, tachycardia (Primary Dx); 01/16/2018 Coronary artery disease of [place] artery of [place] heart with stable angina pectoris; High cholesterol; Type 1 diabetes mellitus without complication; Hx of CABG; Hypovolemia; SVT (supraventricular tachycardia) 12/12/2017 Patient Quality Kortney Garcia, YOUNG Outreach 12/10/2017 Emergency General Internal Medicine Felix Nielsen MD Chest pain, unspecified - [place], Sim, DO type (Primary Dx); 12/12/2017 Troy-Anshu Lopez MD Tachycardia; Shortness of breath; Syncope and collapse after 05/03/2017 Social History Tobacco Use Types Packs/Day Years Used Date Never Smoker Smokeless Tobacco: Never Used Alcohol Use Drinks/Week oz/Week Comments No Sex Assigned at Date Recorded Not on file Last Filed Vital Signs Vital Sign Reading Time Taken Blood Pressure 120/72 01/16/2018 7:43 PM CDT Pulse 105 01/16/2018 7:43 PM CDT Temperature 36.7 C (98 F) 01/16/2018 7:43 PM CDT Respiratory Rate 18 01/16/2018 7:43 PM CDT Oxygen Saturation 99% 01/16/2018 7:43 PM CDT Inhaled Oxygen - - Concentration Weight 102 kg (225 lb) 01/11/2018 11:25 PM CDT Height 180.3 cm (5' 11") 01/11/2018 11:25 PM CDT Body Mass Index 31.38 01/11/2018 11:25 PM CDT Plan of Treatment Health Maintenance Due Date Last Done Comments DIABETIC FOOT EXAM 1987 DIABETIC RETINAL EYE EXAM 1987 URINE MICROALBUMIN 1987 INFLUENZA VACCINE 02/07/2018 Implants Implanted Type Area Complaint Operator Device Expiration Model / Identifier Date Serial / Lot Plate Plate Screw Screw Procedures Procedure Name Priority Date/Time Associated Diagnosis Comments POC GLUCOSE Routine 01/16/2018 Results for this 4:41 PM CDT procedure are in the results section. POC GLUCOSE Routine 01/16/2018 Results for this 11:58 AM CDT procedure are in the results section. CYTOLOGY Routine 01/16/2018 Results for this (NON-GYNECOLOGICAL) 9:33 AM CDT procedure are in the REQUEST results section. SURGICAL PATHOLOGY Routine 01/16/2018 Results for this REQUEST 9:29 AM CDT procedure are in the results section. SURGICAL PATHOLOGY Routine 01/16/2018 Results for this REQUEST 9:29 AM CDT procedure are in the results section. ESOPHAGOGASTRODUODENOSCOP 01/16/2018 abdominal pain Y (EGD) 8:30 AM CDT POC GLUCOSE Routine 01/16/2018 Results for this 5:38 AM CDT procedure are in the results section. POC GLUCOSE Routine 01/15/2018 Results for this 8:44 PM CDT procedure are in the results section. POC GLUCOSE Routine 01/15/2018 Results for this 5:06 PM CDT procedure are in the results section. POC GLUCOSE Routine 01/15/2018 Results for this 12:28 PM CDT procedure are in the results section. CT ABDOMEN PELVIS W WO Routine 01/15/2018 Results for this CONTRAST 11:58 AM CDT procedure are in the results section. POC GLUCOSE Routine 01/15/2018 Results for this 6:02 AM CDT procedure are in the results section. POC GLUCOSE Routine 01/15/2018 Results for this 2:20 AM CDT procedure are in the results section. POC GLUCOSE Routine 01/14/2018 Results for this 9:40 PM CDT procedure are in the results section. POC GLUCOSE Routine 01/14/2018 Results for this 4:54 PM CDT procedure are in the results section. ZZESTIMATED GFR Routine 01/14/2018 Results for this 2:45 PM CDT procedure are in the results section. LIPASE LEVEL Routine 01/14/2018 Results for this 2:45 PM CDT procedure are in the results section. AMYLASE LEVEL Routine 01/14/2018 Results for this 2:45 PM CDT procedure are in the results section. COMPREHENSIVE METABOLIC Routine 01/14/2018 Results for this PANEL 2:45 PM CDT procedure are in the results section. HC COMPLETE BLD COUNT Routine 01/14/2018 Results for this W/AUTO DIFF 2:45 PM CDT procedure are in the results section. POC GLUCOSE Routine 01/14/2018 Results for this 12:06 PM CDT procedure are in the results section. POC GLUCOSE Routine 01/14/2018 Results for this 5:51 AM CDT procedure are in the results section. POC GLUCOSE Routine 01/13/2018 Results for this 8:13 PM CDT procedure are in the results section. POC GLUCOSE Routine 01/13/2018 Results for this 5:20 PM CDT procedure are in the results section. POC GLUCOSE Routine 01/13/2018 Results for this 12:24 PM CDT procedure are in the results section. POC GLUCOSE Routine 01/13/2018 Results for this 5:45 AM CDT procedure are in the results section. POC GLUCOSE Routine 01/12/2018 Results for this 8:53 PM CDT procedure are in the results section. POC GLUCOSE Routine 01/12/2018 Results for this 5:25 PM CDT procedure are in the results section. POC GLUCOSE Routine 01/12/2018 Results for this 11:31 AM CDT procedure are in the results section. D-DIMER STAT 01/12/2018 Results for this 8:52 AM CDT procedure are in the results section. TROPONIN Routine 01/12/2018 Results for this 7:52 AM CDT procedure are in the results section. TROPONIN Timed 01/12/2018 Results for this 2:28 AM CDT procedure are in the results section. XR CHEST 1 VW PORTABLE STAT 01/11/2018 Results for this 11:18 PM CDT procedure are in the results section. ZZESTIMATED GFR STAT 01/11/2018 Results for this 11:05 PM CDT procedure are in the results section. B NATRIURETIC PEPTIDE STAT 01/11/2018 Results for this 11:05 PM CDT procedure are in the results section. TROPONIN STAT 01/11/2018 Results for this 11:05 PM CDT procedure are in the results section. CREATINE KINASE, TOTAL STAT 01/11/2018 Results for this (CPK) 11:05 PM CDT procedure are in the results section. BASIC METABOLIC PANEL STAT 01/11/2018 Results for this 11:05 PM CDT procedure are in the results section. HC COMPLETE BLD COUNT STAT 01/11/2018 Results for this W/AUTO DIFF 11:05 PM CDT procedure are in the results section. ECG ED PRELIMINARY Routine 01/11/2018 Results for this INTERPRETATION 10:40 PM CDT procedure are in the results section. ME CRITICAL CARE, E/M Routine 01/11/2018 Results for this 30-74 MINUTES 10:40 PM CDT procedure are in the results section. ECG 12-LEAD STAT 01/11/2018 Results for this 10:33 PM CDT procedure are in the results section. POC GLUCOSE Routine 12/12/2017 Results for this 3:26 PM CDT procedure are in the results section. ECG 12-LEAD STAT 12/12/2017 Results for this 2:26 PM CDT procedure are in the results section. POC GLUCOSE Routine 12/12/2017 Results for this 11:06 AM CDT procedure are in the results section. MAGNESIUM LEVEL STAT 12/12/2017 Results for this 7:35 AM CDT procedure are in the results section. HEMOGLOBIN A1C Routine 12/12/2017 Results for this 7:35 AM CDT procedure are in the results section. THYROID STIMULATING Routine 12/12/2017 Results for this HORMONE 7:35 AM CDT procedure are in the results section. LIPID PANEL Routine 12/12/2017 Results for this 7:35 AM CDT procedure are in the results section. POC GLUCOSE Routine 12/12/2017 Results for this 5:35 AM CDT procedure are in the results section. POC GLUCOSE Routine 12/11/2017 Results for this 8:02 PM CDT procedure are in the results section. POC GLUCOSE Routine 12/11/2017 Results for this 4:46 PM CDT procedure are in the results section. POC GLUCOSE Routine 12/11/2017 Results for this 4:06 PM CDT procedure are in the results section. POC GLUCOSE Routine 12/11/2017 Results for this 11:44 AM CDT procedure are in the results section. ECHOCARDIOGRAM 2D Routine 12/11/2017 Results for this COMPLETE W MMODE SPECTRAL 11:40 AM CDT procedure are in the COLOR DOPPLER ([id number]) results section. POC GLUCOSE Routine 12/11/2017 Results for this 10:16 AM CDT procedure are in the results section. POC GLUCOSE Routine 12/11/2017 Results for this 6:13 AM CDT procedure are in the results section. TROPONIN Timed 12/11/2017 Results for this 12:45 AM CDT procedure are in the results section. CT ABDOMEN PELVIS W STAT 12/10/2017 Results for this CONTRAST 9:33 PM CDT procedure are in the results section. CT ANGIOGRAM PE CHEST STAT 12/10/2017 Results for this 9:31 PM CDT procedure are in the results section. PARTIAL THROMBOPLASTIN Routine 12/10/2017 Results for this TIME (PTT) 9:27 PM CDT procedure are in the results section. PROTHROMBIN TIME WITH INR Routine 12/10/2017 Results for this 9:27 PM CDT procedure are in the results section. INSERT PERIPHERAL IV Routine 12/10/2017 Results for this 7:44 PM CDT procedure are in the results section. ECG ED PRELIMINARY Routine 12/10/2017 Results for this INTERPRETATION 7:44 PM CDT procedure are in the results section. ZZESTIMATED GFR STAT 12/10/2017 Results for this 7:41 PM CDT procedure are in the results section. CREATINE KINASE, TOTAL STAT 12/10/2017 Results for this (CPK) 7:41 PM CDT procedure are in the results section. B NATRIURETIC PEPTIDE STAT 12/10/2017 Results for this 7:41 PM CDT procedure are in the results section. TROPONIN STAT 12/10/2017 Results for this 7:41 PM CDT procedure are in the results section. LIPASE LEVEL STAT 12/10/2017 Results for this 7:41 PM CDT procedure are in the results section. COMPREHENSIVE METABOLIC STAT 12/10/2017 Results for this PANEL 7:41 PM CDT procedure are in the results section. HC COMPLETE BLD COUNT STAT 12/10/2017 Results for this W/AUTO DIFF 7:41 PM CDT procedure are in the results section. ECG 12-LEAD Routine 12/10/2017 Results for this 7:17 PM CDT procedure are in the results section. after 05/03/2017 Results * POC glucose (01/16/2018 4:41 PM) Only the most recent of 28 results within the time period is included. POC glucose 214 (H) 65 - 99 mg/dL [facility] DEPARTMENT OF Comment: PATHOLOGY AND Meter ID: [id number] GENOMIC MEDICINE Chemical Processing Laborer: Vinod Leiva Performing Organization Address [facility] Phone Number [address] [place] [address] PATHOLOGY AND GENOMIC MEDICINE * Cytology (non-gynecological) request (01/16/2018 9:33 AM) [facility] DEPARTMENT OF PATHOLOGY AND GENOMIC MEDICINE Cytology See link below for PDF Lab [facility] DEPARTMENT OF (non-gynecological) Report PATHOLOGY AND report GENOMIC MEDICINE Result status This is Final Report to [facility] [id number] PATHOLOGY AND GENOMIC MEDICINE Performing Organization Address [facility] Phone Number [address] [place] [phone] PATHOLOGY AND GENOMIC MEDICINE * Surgical pathology request (01/16/2018 9:29 AM) Only the most recent of 2 results within the time period is included. [facility] DEPARTMENT OF PATHOLOGY AND GENOMIC MEDICINE Surgical pathology report See link below for PDF Lab [facility] DEPARTMENT OF Report PATHOLOGY AND GENOMIC MEDICINE Result status This is Supplemental Report to [facility] [id number] PATHOLOGY AND GENOMIC MEDICINE Performing Organization Address [facility] Phone Number [address] [place] [phone] PATHOLOGY AND GENOMIC MEDICINE * CT Abdomen Pelvis W Wo Contrast (01/15/2018 11:58 AM) Narrative Performed At EXAMINATION:CT ABDOMEN PELVIS W WO CONTRAST HM [facility]IANT CLINICAL HISTORY:Abd distension, Abd paindiverticulitis suspected TECHNIQUE: Noncontrast images of the abdomen and pelvis were obtained. Subsequently, axial images of the abdomen and pelvis were obtained following intravenous administration of iodinated contrast. Sagittal and coronal computerized reformatted images were also obtained. CT scans are performed using radiation dose reduction techniques. Technical factors are evaluated and adjusted to ensure appropriate moderation of exposure. Automated dose management technology is applied to adjust radiation exposure while achieving a diagnostic quality image. COMPARISON:12/10/2017 FINDINGS: The spleen, adrenal glands, and pancreas are unremarkable. Gallbladder has been removed. Mild diffuse fatty infiltration of liver suspected. Left kidney is normal. A 3.2 cm cyst is present in the right kidney. No renal calculi are present. Abdominal aorta is normal in caliber. No lymphadenopathy or ascites are present. There are no inflammatory changes around the large or small bowel. The patient has undergone appendectomy. Diverticula are present in the colon without findings of diverticulitis. There is a small amount of urine in the bladder. There are no pelvic masses or pelvic lymphadenopathy. Atelectasis is noted in the lung bases. The patient has undergone median sternotomy. There are degenerative changes of the lower thoracic and lumbosacral spine. IMPRESSION: No acute findings. No evidence of diverticulitis. [id number] Procedure Note Hm Interface, Radiology Results Incoming - 01/15/2018 1:03 PM CDT EXAMINATION: CT ABDOMEN PELVIS W WO CONTRAST CLINICAL HISTORY: Abd distension, Abd pain diverticulitis suspected TECHNIQUE: Noncontrast images of the abdomen and pelvis were obtained. Subsequently, axial images of the abdomen and pelvis were obtained following intravenous administration of iodinated contrast. Sagittal and coronal computerized reformatted images were also obtained. CT scans are performed using radiation dose reduction techniques. Technical factors are evaluated and adjusted to ensure appropriate moderation of exposure. Automated dose management technology is applied to adjust radiation exposure while achieving a diagnostic quality image. COMPARISON: 12/10/2017 FINDINGS: The spleen, adrenal glands, and pancreas are unremarkable. Gallbladder has been removed. Mild diffuse fatty infiltration of liver suspected. Left kidney is normal. A 3.2 cm cyst is present in the right kidney. No renal calculi are present. Abdominal aorta is normal in caliber. No lymphadenopathy or ascites are present. There are no inflammatory changes around the large or small bowel. The patient has undergone appendectomy. Diverticula are present in the colon without findings of diverticulitis. There is a small amount of urine in the bladder. There are no pelvic masses or pelvic lymphadenopathy. Atelectasis is noted in the lung bases. The patient has undergone median sternotomy. There are degenerative changes of the lower thoracic and lumbosacral spine. IMPRESSION: No acute findings. No evidence of diverticulitis. [facility]-[id number] Performing Organization Address [facility] Phone Number [facility] [address] [place] [address] * Estimated GFR (01/14/2018 2:45 PM) Only the most recent of 3 results within the time period is included. GFR Non Af Amer >90 mL/min/1.73 m2 [facility] DEPARTMENT OF PATHOLOGY AND GENOMIC MEDICINE GFR Af Amer >90 mL/min/1.73 m2 [facility] DEPARTMENT OF Comment: PATHOLOGY AND Chronic kidney disease: <60 GENOMIC MEDICINE mL/min/1.73m2 Kidney failure: <15 mL/min/1.73m2 The estimated GFR is calculated from the IDMS-traceable Modification of Diet in Renal Disease Equation. The accuracy of the calculation is poor when the creatinine is normal. Calculated values >90 mL/min/1.73m2 are not reported. This equation has not been validated in children (<18 years), women, the elderly (>70 years), or ethnic groups other than Caucasians and Americans. Specimen Plasma specimen Performing Organization Address City/[facility]/Zipcode Phone Number [address] [place] [address] PATHOLOGY AND GENOMIC MEDICINE * CBC with platelet and differential (01/14/2018 2:45 PM) Only the most recent of 3 results within the time period is included. WBC 8.40 4.50 - 11.00 k/uL [facility] DEPARTMENT OF PATHOLOGY AND GENOMIC MEDICINE RBC 5.51 4.40 - 6.00 m/uL [facility] DEPARTMENT OF PATHOLOGY AND GENOMIC MEDICINE HGB 14.9 14.0 - 18.0 g/dL [facility] DEPARTMENT OF PATHOLOGY AND GENOMIC MEDICINE HCT 46.1 41.0 - 51.0 % [facility] DEPARTMENT OF PATHOLOGY AND GENOMIC MEDICINE MCV 83.7 82.0 - 100.0 fL [facility] OF PATHOLOGY AND GENOMIC MEDICINE MCH 27.0 27.0 - 34.0 pg [facility] OF PATHOLOGY AND GENOMIC MEDICINE MCHC 32.3 31.0 - 37.0 g/dL [facility] OF PATHOLOGY AND GENOMIC MEDICINE RDW - SD 37.9 37.0 - 55.0 fL [facility] OF PATHOLOGY AND GENOMIC MEDICINE MPV 10.0 8.8 - 13.2 fL [facility] PATHOLOGY AND GENOMIC MEDICINE Platelet count 268 150 - 400 k/uL [facility] PATHOLOGY AND GENOMIC MEDICINE Nucleated RBC 0.00 /100 WBC [facility] PATHOLOGY AND GENOMIC MEDICINE Neutrophils 72.6 (H) 39.0 - 69.0 % [facility] PATHOLOGY AND GENOMIC MEDICINE Lymphocytes 18.5 (L) 25.0 - 45.0 % [facility] DEPARTMENT OF PATHOLOGY AND GENOMIC MEDICINE Monocytes 5.6 0.0 - 10.0 % [facility] PATHOLOGY AND GENOMIC MEDICINE Eosinophils 2.4 0.0 - 5.0 % [facility] PATHOLOGY AND GENOMIC MEDICINE Basophils 0.7 0.0 - 1.0 % [facility] PATHOLOGY AND GENOMIC MEDICINE Specimen Blood Performing Organization Address [facility] Phone Number [address] [place] [address] PATHOLOGY [facility] * Lipase level (01/14/2018 2:45 PM) Only the most recent of 2 results within the time period is included. Lipase 21 13 - 60 U/L [facility] PATHOLOGY AND GENOMIC MEDICINE Specimen Plasma specimen Performing Organization Address [facility] Phone Number [address] * Amylase level (01/14/2018 2:45 PM) Amylase 34 13 - 73 U/L [facility] PATHOLOGY AND GENOMIC MEDICINE Specimen Plasma specimen Performing Organization Address [facility] Phone Number [address] [place] [address] PATHOLOGY [facility] * Comprehensive metabolic panel (01/14/2018 2:45 PM) Only the most recent of 2 results within the time period is included. Sodium 139 135 - 148 mEq/L [facility] DEPARTMENT OF PATHOLOGY AND GENOMIC MEDICINE Potassium 4.1 3.5 - 5.0 mEq/L [facility] DEPARTMENT OF PATHOLOGY AND GENOMIC MEDICINE Chloride 100 98 - 112 mEq/L [facility] DEPARTMENT OF PATHOLOGY AND GENOMIC MEDICINE CO2 25 24 - 31 mEq/L [facility] DEPARTMENT OF PATHOLOGY AND GENOMIC MEDICINE Anion gap 14@ANIO 7 - 15 mEq/L [facility] DEPARTMENT OF PATHOLOGY AND GENOMIC MEDICINE BUN 20 6 - 20 mg/dL [facility] DEPARTMENT OF PATHOLOGY AND GENOMIC MEDICINE Creatinine 0.7 0.7 - 1.2 mg/dL [facility] DEPARTMENT OF PATHOLOGY AND GENOMIC MEDICINE Glucose 235 (H) 65 - 99 mg/dL [facility] DEPARTMENT OF PATHOLOGY AND GENOMIC MEDICINE Calcium 9.4 8.3 - 10.2 mg/dL [facility] DEPARTMENT OF PATHOLOGY AND GENOMIC MEDICINE Protein 6.8 6.3 - 8.3 g/dL [facility] DEPARTMENT OF Comment: PATHOLOGY AND GENOMIC MEDICINE 4.6-7.0 g/dL 1 week 4.4-7.6 g/dL 7 months-1year 5.1-7.3 g/dL 1-2 years5.6-7 .5 g/dL >3 years6.0-8 .0 g/dL 18-150 6.3-8.3 g/dL Albumin 4.0 3.5 - 5.0 g/dL [facility] DEPARTMENT OF PATHOLOGY AND GENOMIC MEDICINE A/G ratio 1.4 0.7 - 3.8 [facility] DEPARTMENT OF PATHOLOGY AND GENOMIC MEDICINE Alkaline phosphatase 97 40 - 129 U/L [facility] DEPARTMENT OF PATHOLOGY AND GENOMIC MEDICINE AST 15 10 - 50 U/L [facility] DEPARTMENT OF PATHOLOGY AND GENOMIC MEDICINE ALT 16 5 - 50 U/L [facility] DEPARTMENT OF PATHOLOGY AND GENOMIC MEDICINE Total bilirubin 0.5 0.0 - 1.2 mg/dL [facility] DEPARTMENT OF PATHOLOGY AND GENOMIC MEDICINE Specimen Plasma specimen Performing Organization Address City/State/Zipcode Phone Number [facility] [address] [place] [address] PATHOLOGY AND GENOMIC MEDICINE * D-dimer (01/12/2018 8:52 AM) D-dimer 0.53 (H) 0.00 - 0.40 ug/mL FEU [facility] DEPARTMENT OF Comment: PATHOLOGY AND Units are ug/ml Fibrinogen GENOMIC MEDICINE Equivalent Unit. When combined with low clinical probability, D-dimer results of less than 0.5 ug/ml FEU have a good negativepredictive value in excluding PE or DVT. For D-dimer results greater than 0.5ug/ml FEU further testing is indicated if PE or DVT is suspectedclinically. Elevated D-dimer results have been reported in DVT, PE, and DIC cases and may indicate the presence of a clot. D-dimer results may be elevated due to old age, , inflammatory diseases, trauma, post-operative states, sepsis, and malignancies. Specimen Blood Performing Organization Address [facility] Phone Number [facility] [place] [id number] [place] [address] [place] [address] PATHOLOGY AND babberly MEDICINE * Troponin (01/12/2018 7:52 AM) Only the most recent of 5 results within the time period is included. Troponin <0.300 0.000 - 0.300 ng/mL [facility] DEPARTMENT OF Comment: PATHOLOGY AND 0.30 - 1.49 GENOMIC MEDICINE ng/mlMay indicate increased risk of acute coronary syndrome. >=1.5 ng/ml Consistent with acute myocardial infarction. The diagnostic value of a single normal or non-diagnostic result is questionable.Serial samples at 2-6 hour intervals are required to rule out acute myocardial injury. Specimen Plasma specimen Performing Organization Address [facility] Phone Number [facility] [place] [address] [place] [address] PATHOLOGY AND babberly MEDICINE * XR Chest 1 Vw Portable (01/11/2018 11:18 PM) Narrative Performed At EXAMINATION:XR CHEST 1 VW PORTABLE [facility] CLINICAL HISTORY:chest pain tachycardia recent hx CABG COMPARISON:11/11/2014 IMPRESSION: Mild prominence of interstitial lung markings, compatible with mild vascular congestion. Right lung base atelectasis versus infiltrate. No effusions or pneumothorax. Cardiomediastinal silhouette is within normal limits. No acute osseous abnormalities. [facility]-[id number] Procedure Note Hm Interface, Radiology Results Incoming - 01/12/2018 12:01 AM CDT EXAMINATION: XR CHEST 1 VW PORTABLE CLINICAL HISTORY: chest pain tachycardia recent hx CABG COMPARISON: 11/11/2014 IMPRESSION: Mild prominence of interstitial lung markings, compatible with mild vascular congestion. Right lung base atelectasis versus infiltrate. No effusions or pneumothorax. Cardiomediastinal silhouette is within normal limits. No acute osseous abnormalities. [facility]-[id number] Performing Organization Address City/[facility]/Zipcode Phone Number JOSE [address] [place] [address] * B natriuretic peptide (01/11/2018 11:05 PM) Only the most recent of 2 results within the time period is included. BNP 15 0 - 100 pg/mL [facility] DEPARTMENT OF PATHOLOGY AND [facility] Specimen Blood Performing Organization Address [facility] Phone Number [address] [place] [address] PATHOLOGY [facility] * Creatine kinase, total (CPK) (01/11/2018 11:05 PM) Only the most recent of 2 results within the time period is included. Creatine kinase 120 39 - 308 U/L [facility] DEPARTMENT PATHOLOGY [facility] Specimen Plasma specimen Performing Organization Address [facility] Phone Number [address] [place] [address] PATHOLOGY [facility] * Basic metabolic panel (01/11/2018 11:05 PM) Sodium 140 135 - 148 mEq/L [facility] DEPARTMENT OF PATHOLOGY AND GENOMIC MEDICINE Potassium 4.3 3.5 - 5.0 mEq/L [facility] DEPARTMENT OF PATHOLOGY AND GENOMIC MEDICINE Chloride 99 98 - 112 mEq/L [facility] DEPARTMENT OF PATHOLOGY AND GENOMIC MEDICINE CO2 25 24 - 31 mEq/L [facility] DEPARTMENT OF PATHOLOGY AND GENOMIC MEDICINE Anion gap 16@ANIO (H) 7 - 15 mEq/L [facility] DEPARTMENT OF PATHOLOGY AND GENOMIC MEDICINE BUN 17 6 - 20 mg/dL [facility] DEPARTMENT OF PATHOLOGY AND GENOMIC MEDICINE Creatinine 0.9 0.7 - 1.2 mg/dL [facility] DEPARTMENT OF PATHOLOGY AND GENOMIC [facility] Glucose 322 (H) 65 - 99 mg/dL [facility] DEPARTMENT PATHOLOGY AND GENOMIC MEDICINE Calcium 9.6 8.3 - 10.2 mg/dL [facility] DEPARTMENT OF PATHOLOGY AND GENOMIC [facility] Specimen Plasma specimen Performing Organization Address [facility] Phone Number [address] [place] [address] PATHOLOGY [facility] * ECG ED Preliminary Interpretation - NOT AN ORDER (01/11/2018 10:40 PM) Only the most recent of 2 results within the time period is included. Narrative Performed At Dago Carpio DO 01/12/20181:35 AM ECG ED Preliminary Interpretation - Not an Order Performed by: DAGO CARPIO Authorized by: DAGO CARPIO ECG reviewed by ED Physician in the absence of a quality assurance specialist: yes Interpretation: Interpretation: abnormal Rate: ECG rate:137 ECG rate assessment: tachycardic Rhythm: Rhythm: sinus tachycardia Ectopy: Ectopy: none QRS: QRS axis:Normal Conduction: Conduction: normal ST segments: ST segments:Normal T waves: T waves: normal * CRITICAL CARE (01/11/2018 10:40 PM) Narrative Performed At Dago Carpio DO 01/12/20181:35 AM Critical Care Performed by: DAGO CARPIO Authorized by: DAGO CARPIO Critical care provider statement: Critical care time (minutes):60 Critical care end time:01/12/2018 1:35 AM Critical care time was exclusive of:Separately billable procedures and treating other patients Critical care was necessary to treat or prevent imminent or life-threatening deterioration of the following conditions:Cardiac failure Critical care was time spent personally by me on the following activities:Ordering and performing treatments and interventions, ordering and review of laboratory studies, ordering and review of radiographic studies, pulse oximetry, re-evaluation of patient's condition, development of treatment plan with patient or surrogate, examination of patient, evaluation of patient's response to treatment, obtaining history from patient or surrogate and discussions with consultants Herb 'yes' if you are taking over critical care for this patient from another provider.: no * ECG 12 lead (01/11/2018 10:33 PM) Only the most recent of 3 results within the time period is included. Ventricular rate 137 [facility] Atrial rate 137 [facility] ME interval 130 [facility] QRSD interval 82 [facility] QT interval 364 [facility] QTC interval 549 [facility] P axis 1 78 [facility] QRS axis 1 52 [facility] T wave axis 60 [facility] EKG impression Sinus tachycardia-Nonspecific [facility] MUSE T wave abnormality-Abnormal ECG Incomplete right bundle branch block-In automated comparison with ECG of 12-DEC-2017 14:26,-No significant change was found- Performing Organization Address [facility]/Zipcode Phone Number [facility] MUSE [address] [place] [address] * Thyroid stimulating hormone (12/12/2017 7:35 AM) TSH 1.83 0.27 - 4.20 uIU/mL [facility] DEPARTMENT OF PATHOLOGY AND [facility] MEDICINE Specimen Plasma specimen Performing Organization Address [facility] Phone Number [address] [place] [address] PATHOLOGY AND [facility] MEDICINE * Magnesium level (12/12/2017 7:35 AM) Magnesium 1.8 1.6 - 2.6 mg/dL [facility] DEPARTMENT OF PATHOLOGY AND [facility] Specimen Plasma specimen Performing Organization Address [facility] Phone Number [address] [place] [address] PATHOLOGY AND [facility] MEDICINE * Hemoglobin A1c (12/12/2017 7:35 AM) Hemoglobin A1C 9.0 (H) 4.0 - 6.0 % [facility] DEPARTMENT OF Comment: PATHOLOGY AND GENOMIC MEDICINE Less than 6% - Goal of therapy for Type II Diabetes Less than 7%-Goal of therapy for Type I Diabetes Less than 8%-Accepta ble control for Type I or Type II Diabetes Greater than 8%-Unacceptabl e control; action indicated. ([id number]) Specimen Blood Performing Organization Address [facility] Phone Number [address] [place] [id number] PATHOLOGY AND [facility] MEDICINE * Lipid panel (12/12/2017 7:35 AM) Cholesterol 174 <200 mg/dL [facility] DEPARTMENT OF PATHOLOGY AND GENOMIC MEDICINE Triglycerides 190 (H) <150 mg/dL [facility] DEPARTMENT OF PATHOLOGY AND GENOMIC MEDICINE HDL cholesterol 28 (L) >40 mg/dL [facility] DEPARTMENT OF PATHOLOGY AND GENOMIC MEDICINE LDL cholesterol 118 (H)Comment: Result <100 mg/dL [facility] DEPARTMENT OF obtained by direct LDL PATHOLOGY AND measurement GENOMIC MEDICINE Lipid panel SeeBelow [facility] DEPARTMENT OF interpretation Comment: PATHOLOGY AND Total Cholesterol GENOMIC MEDICINE (mg/dL) <200 Desirable 200-239Borderline -high >=240High Triglycerides (mg/dL) <150 Normal 150-199Borderline -high 200-499High >=500Very high HDL Cholesterol (mg/dL) <40Low (male) <40Low (female) LDL Cholesterol (mg/dL) <100 Optimal 100-129Near or above optimal 130-159Borderline -high 160-189High >=190Very high Risk Catergories that modify LDL goals. Risk Catergories LDL goal (mg/dL) CHD and CHD risk equivalent<100 (10-year risk >20%) Multiple (2+) risk factors <130 (10-year risk=<20%) 0-1 risk factors <160 (<10-year risk) Defining levels of lipids in metabolic syndrome Triglycerides >=150 mg/dL HDL Cholesterol Men <40 mg/dL Women <40 mg/dL Non-HDL cholesterol is a second target for therapy in persons with high triglycerides (>=200 mg/dL) Specimen Plasma specimen Performing Organization Address City/State/Zipcode Phone Number [facility] [place] [address] [place] [address] PATHOLOGY AND GENOMIC MEDICINE * Echocardiogram complete w contrast and 3D if needed (12/11/2017 11:40 AM) LA volume 37.0 cm3 [facility] LA Area d A4C 50 cm2 [facility] LA diam s 4.90 cm [facility] Aortic Root 3.24 cm [facility] ME End Hull Grad 3.48 [facility] ME End Diat Nelson 0.93 [facility] D E excurs 1.80 [facility] E f slope 0.14 [facility] E prime lat 0.13 [facility] E gerald sept 0.09 [facility] PV acc T slope 6.80 [facility] AoV Area, Vmax 2.34 cm2 [facility] AoV Area, VTI 2.51 cm2 [facility] AoV Mean PG 4.05 mmHg [facility] AoV Peak PG 7.05 mmHg [facility] AoV Vmax 1.33 m/s [facility] AoV VTI 0.19 m [facility] BSA Pandey 2.35 m2 [facility] BSA 2.26 m2 [facility] IVS,d 1.23 (A) 0.6 - 1.2 cm [facility] IVS/LVPW,2D 1.21 [facility] LV,d 4.05 cm [facility] LV EF,2D 52.44 % [facility] LV EF,A2C 47.63 % [facility] LV EF,A4C 60.03 % [facility] LV EF,BP 52.89 % [facility] Torito Dierks,d A2C 8.14 cm [facility] Torito Dierks,d A4C 7.96 cm [facility] Torito Dierks,s A2C 7.57 cm [facility] Torito Dierks,s A4C 6.93 cm [facility] LV,s 3.16 cm [facility] LV SV,A2C 39.03 % [facility] LV SV,A4C 49.62 % [facility] LV SV,BP 44.00 % [facility] LV Vol,d A2C 81.95 mL [facility] LV Vol,d A4C 82.66 ml [facility] LV Vol,d BP 83.19 ml [facility] LV Vol,s A2C 42.92 mL [facility] LV Vol,s A4C 33.04 ml [facility] LV Vol,s BP 39.19 nl [facility] LVOT area 3.46 cm2 [facility] LVOT Diam,S 2.10 cm [facility] LVOT Vmax 0.90 m/s [facility] LVOT VTI 0.14 m [facility] LVPWD,d 1.02 cm [facility] RVSP (TR) 30.02 mmHg [facility] TR Vpeak 2.26 mm/s [facility] MV E A ratio 0.88 mmHg [facility] RA pressure 10.00 mmHg [facility] TR pk grad 20.02 mmHg [facility] AoV area i VTI BSA [place] 1.11 cm2/m2 [facility] LV SI MOD BP BSA Martine 19.48 ml/m2 [facility] LV Vol Index s bpmod BSA 36.83 ml/m2 [facility] Martine PV Vmn 17.35 m/s [facility] BMI 32.77 kg/m2 [facility] E wave decelartion time 106.67 msec [facility] MV Peak A Nelson 0.85 m/s [facility] MV valve area p 1/2 7.11 cm2 [facility] method MV Peak E Nelson 0.75 m/s [facility] MV stenosis pressure 1/2 30.93 ms [facility] time AV LVOT peak gradient 3.22 mmHg [facility] RVSP 30.02 mmHg [facility] LV SYS VOL 39.78 ml [facility] LV HULL VOL 72.11 ml [facility] LV SI Teich 2D 14.32 ml/m2 [facility] LV SV Teich 2D 32.33 ml [facility] LV Vol s Teich PSAX 39.78 ml [facility] LVOT SI 21.55 ml/m2 [facility] BSA Haycock 2.34 m2 [facility] AoV Cusp sep 1.87 [facility] AoV Vmn 0.96 [facility] IVS s 2D 1.36 [facility] LV FS Teich 2D 21.94 [facility] MV AE ratio 1.14 [facility] LA Ao Ratio Mmode 1.52 [facility] LV FS Cube 2D 21.94 [facility] LVOT Vmn 0.60 [facility] Pt Size 180.34 [facility] Pt Wt 106.59 [facility] Ao root annulus 3.24 cm [facility] PV AT 110.73 msec [facility] Aov area Vmn 2.14 cm2 [facility] LVOT mean grad 1.66 mmHg [facility] AoV area I VMN bsa 0.95 cm2/m2 [facility] IVS pct thck PLAX 10.38 % [facility] LV SI Cube 2D 15.43 ml/m2 [facility] LV SV Cube 2D 34.85 ml [facility] LV vol d cube 2D 66.45 ml [facility] LV vol s cube 2D 31.61 ml [facility] LVPW pct thck PLAX 14.51 % [facility] LVPW s PLAX 1.16 cm [facility] MV Decel slope 7.00 m/s2 [facility] LA Vol MOD A4C 50.40 ml [facility] Velocity Ratio (V1/V2) 0.68 m/s [facility] EF 44.83 % [facility] E/A ratio 0.88 [facility] LV Systolic Volume Index 18.99 mL/m2 [facility] LV Diastolic Volume Index 36.26 mL/m2 [facility] LA Volume Index 16.37 mL/m2 [facility] Narrative Performed At [facility] The left ventricle chamber size is normal. Left Ventricular ejection fraction is 50 - 55%. No pericardial effusion Spectral Doppler shows impaired relaxation pattern of left ventricular diastolic filling. Performing Organization Address [facility] Phone Number [facility] [address] [place] [address] * CT Abdomen Pelvis W Contrast (12/10/2017 9:33 PM) Narrative Performed At EXAMINATION:CT ABDOMEN PELVIS W CONTRAST [facility] CLINICAL HISTORY:right chest pain TECHNIQUE: Multiple axial images of the abdomen and pelvis were obtained following intravenous administration of iodinated contrast. Sagittal and coronal computerized reformatted images were also obtained. Radiation dose reduction technique was utilized. COMPARISON:11/18/2014 IMPRESSION: Abdomen: 1. Liver, spleen, pancreas, adrenals, and left kidney do not demonstrate any masses. 2.There is a stable 3.2 cm cyst in the right kidney. 3.There is no retroperitoneal adenopathy or ascites. 4.There is no aortic aneurysm. 5.There is no intestinal obstruction. 6.Status post cholecystectomy. Pelvis: 1. Status post appendectomy. 2.No pelvic mass, adenopathy, fluid collection. [id number] Procedure Note Interface, Radiology Results [facility] - 12/10/2017 9:41 PM CDT EXAMINATION: CT ABDOMEN PELVIS W CONTRAST CLINICAL HISTORY: right chest pain TECHNIQUE: Multiple axial images of the abdomen and pelvis were obtained following intravenous administration of iodinated contrast. Sagittal and coronal computerized reformatted images were also obtained. Radiation dose reduction technique was utilized. COMPARISON: 11/18/2014 IMPRESSION: Abdomen: 1. Liver, spleen, pancreas, adrenals, and left kidney do not demonstrate any masses. 2. There is a stable 3.2 cm cyst in the right kidney. 3. There is no retroperitoneal adenopathy or ascites. 4. There is no aortic aneurysm. 5. There is no intestinal obstruction. 6. Status post cholecystectomy. Pelvis: 1. Status post appendectomy. 2. No pelvic mass, adenopathy, fluid collection. [id number] Performing Organization Address [facility] Phone Number [facility] [address] [place] [address] * CT Angiogram Pe Chest (12/10/2017 9:31 PM) Narrative Performed At EXAMINATION:CT ANGIOGRAM PE CHEST [facility] CLINICAL HISTORY: recent surgery and right sided pain TECHNIQUE:CT angiographic images of the chest were obtained during intravenous administration of iodinated contrast. Computerized reformatted images and 3-D MIP images were also obtained and archived (CT pulmonary embolus protocol).CT scans are performed using radiation dose reduction techniques.Technical factors are evaluated and adjusted to ensure appropriate moderation of exposure.Automated dose management technology is applied to adjust radiation exposure while achieving a diagnostic quality image. COMPARISON:None. Findings: Suboptimal bolus limits the study. No definite pulmonary embolus is seen. Evaluation for segmental and subsegmental branches of the pulmonary artery are nondiagnostic. No dissection or aneurysm is seen. No consolidation or pleural effusion is seen. No pulmonary mass or nodule is seen. No mediastinal hematoma or lymphadenopathy is seen. IMPRESSION: 1. Suboptimal bolus limits evaluation for pulmonary embolus. No definite central embolus is seen. Evaluation for segmental and subsegmental branches of the pulmonary artery are nondiagnostic. 2. No acute abnormality identified in the chest. [id number] Procedure Note Interface, Radiology Results Incoming - 12/10/2017 9:46 PM CDT EXAMINATION: CT ANGIOGRAM PE CHEST CLINICAL HISTORY: recent surgery and right sided pain TECHNIQUE: CT angiographic images of the chest were obtained during intravenous administration of iodinated contrast. Computerized reformatted images and 3-D MIP images were also obtained and archived (CT pulmonary embolus protocol). CT scans are performed using radiation dose reduction techniques. Technical factors are evaluated and adjusted to ensure appropriate moderation of exposure. Automated dose management technology is applied to adjust radiation exposure while achieving a diagnostic quality image. COMPARISON: None. Findings: Suboptimal bolus limits the study. No definite pulmonary embolus is seen. Evaluation for segmental and subsegmental branches of the pulmonary artery are nondiagnostic. No dissection or aneurysm is seen. No consolidation or pleural effusion is seen. No pulmonary mass or nodule is seen. No mediastinal hematoma or lymphadenopathy is seen. IMPRESSION: 1. Suboptimal bolus limits evaluation for pulmonary embolus. No definite central embolus is seen. Evaluation for segmental and subsegmental branches of the pulmonary artery are nondiagnostic. 2. No acute abnormality identified in the chest. [id number] Performing Organization Address City/State/Zipcode Phone Number [facility] [address] [place] [address] * Partial thromboplastin time, activated (12/10/2017 9:27 PM) PTT 31.3 23.0 - 36.0 sec [facility] DEPARTMENT OF Comment: PATHOLOGY AND PTT therapeutic range for GENOMIC MEDICINE unfractionated heparin is 61.0-112.0 seconds which corresponds to Anti-Xa 0.3-0.7 U/ml. Specimen Blood Performing Organization Address [facility] Phone Number [facility] [id number] [place] [address] [place] [address] PATHOLOGY AND GENOMIC MEDICINE * Prothrombin time with INR (12/10/2017 9:27 PM) Prothrombin time 13.8 12.0 - 15.0 sec [facility] DEPARTMENT OF PATHOLOGY AND GENOMIC MEDICINE INR 1.0 [facility] DEPARTMENT OF Comment: PATHOLOGY AND The International Normalized GENOMIC MEDICINE Ratio (INR) is a therapeutic monitoring tool for patients who are stable on oral anticoagulant therapy. An INR of 2.0-3.0 is suggested for deep vein thrombosis/pulmonary embolism. Specimen Blood Performing Organization Address [facility] Phone Number [address] [place] [address] PATHOLOGY AND babberly MEDICINE * Insert peripheral IV (12/10/2017 7:44 PM) Narrative Performed At Felix Nielsen MD 12/11/20172:37 PM Insert peripheral IV Date/Time: 12/10/2017 8:55 PM Performed by: FELIX NIELSEN Authorized by: FELIX NIELSEN Consent: Verbal consent obtained. Risks and benefits: risks, benefits and alternatives were discussed Consent given by: patient Patient understanding: patient states understanding of the procedure being performed Patient consent: the patient's understanding of the procedure matches consent given Procedure consent: procedure consent matches procedure scheduled Relevant documents: relevant documents present and verified Patient identity confirmed: verbally with patient and hospital-assigned identification number Local anesthesia used: no Anesthesia: Local anesthesia used: no Sedation: Patient sedated: no Patient tolerance: Patient tolerated the procedure well with no immediate complications after 05/03/2017 Insurance Payer Benefit Subscriber ID Type Phone Address Plan / Group FERGUSON OMANI MARTY xxxxxxxxxx Commercial OMANI
--- OUTSIDE RECORDS SUMMARY | 2018-05-04 13:41 | XMS REPORT ---
Author Author [facility] Address Unknown Phone Unavailable Care Team Providers Care Signals Analyst Name Role Phone Lydia WYNNE Unavailable Unavailable Quin MORRIS Unavailable Unavailable Jeet ROSA Unavailable Unavailable ELYSIA CURRIE Unavailable Unavailable Problems This patient has no known problems. Allergies, Adverse Reactions, Alerts This patient has no known allergies or adverse reactions. Medications This patient has no known medications. Results Test Description Test Time Test Comments Text Results Atomic Results Result Comments CT CHEST W [place] [address] Patient Name: COLLEEN KAPOOR MR #: [id number] : 1975 Age/Sex: 42/M Req #: [id number] Adm Physician: Ordered by: CHAD WYNNE MD Report #: [id number] Location: ER Room/Bed: Procedure: [id number] CT/CT CHEST W Exam Date: Exam Time: REPORT STATUS: Signed EXAM: CT CHEST W DATE: 12/07/2017 11:04 PM INDICATION: Sharp chest pain, concern for pulmonary embolism. Recent CABG. COMPARISON: None TECHNIQUE: Multidetector CT scanning of the chest was performed. Coronal and sagittal multiplanar reformations were obtained. IV Contrast: 75 ml Isovue 370/300 FINDINGS: Motion artifact in the lower lobes precludes evaluation of the segmental/subsegmental arteries. Otherwise no evidence of acute more central pulmonary embolism to the lobar level. Main pulmonary artery is normal in caliber, 2.2 cm. LUNGS AND PLEURA: Small left pleural effusion with minimal associated atelectasis. HEART, MEDIASTINUM, VESSELS: Postsurgical changes status post recent median sternotomy and CABG with mild fluid and stranding in the anterior mediastinum and along the sternum. Mild cardiomegaly with small pericardial effusion. Coronary artery calcifications. Incidental subcentimeter thyroid nodules. No adenopathy. UPPER ABDOMEN: Unremarkable. MUSCULOSKELETAL: No acute findings. IMPRESSION: 1. Degraded by motion artifact. Otherwise no evidence of acute pulmonary embolism, as above. 2. Postsurgical changes status post recent median sternotomy and CABG. 3. Small pericardial effusion and small left effusion. Signed by: Dr Ryan Wren MD on 12/07/2017 2:34 AM Dictated By: RYAN WREN MD 3 Transcribed By: RYAN on 12/07/17233 COPY TO: CHAD WYNNE MD CT ABDOMEN/PELVIS WO [place] [address] Patient Name: COLLEEN KAPOOR MR #: [id number] : 1975 Age/Sex: 42/M Req #: [id number] Adm Physician: Ordered by: CLAUDINE BARKER Report #: [id number] Location: ER Room/Bed: Procedure: [id number] CT/CT ABDOMEN/PELVIS WO Exam Date: Exam Time: REPORT STATUS: Signed PROCEDURE: CT ABDOMEN AND PELVIS WITHOUT CONTRAST TECHNIQUE: The abdomen and pelvis were scanned utilizing a multidetector helical scanner from the diaphragm to the lesser trochanter without IV or oral contrast material per physician's order. Coronal and sagittal multiplanar reformations were obtained. DLP: 881.91 mGy-cm COMPARISON: [facility], CT, CT ABDOMEN/PELVIS , 08/05/2016, 11:59. INDICATIONS: BACK PAIN, ABDOMINAL PAIN [...] region of the right kidney appears unchanged. P ELVIC ORGANS/BLADDER: Unremarkable. PERITONEUM / RETROPERITONEUM: No free [...] CLAUDINE BARKER Stress Test - Treadmill ONLY [place] [address] Patient Name : COLLEEN KAPOOR MR #: [id number] : 1975 Age/Sex: 42/M Adm Physician : ANTOINETTE ROSA MD Admit Date : Location : [place] Room/Bed : REPORT: Cardiology Report DATE OF STUDY: 2017 PROCEDURE TITLE Rest stress single isotope with [...] normal without regional wall motion abnormalities. Job#: [id number] Signature Date Dictated By: ANTOINETTE ROSA MD Transcribed By: [facility] on 04/17/17 <Electronically signed by ANTOINETTE ROSA MD><<Signature on File>>04/23/17 0392 COPY TO: MRI RIGHT KNEE WO [place] [address] Patient Name: COLLEEN KAPOOR MR #: [id number] : 1975 Age/Sex: 41/M Req #: [id number] Adm Physician: Ordered by: ELYSIA CURRIE DO Report #: [id number] Location: MRI Room/Bed: Procedure: [id number] MRI/MRI RIGHT KNEE WO Exam Date: 03/28/17 [...] compartment: No chondromalacia or patellar dislocation. Extensor mec hanism: The quadriceps and patellar tendons are normal. [...]
--- OUTSIDE RECORDS SUMMARY | 2018-05-04 13:41 | XMS REPORT | Clinical Summary ---
Author Author TEJINDER [facility] Address Unknown Phone Unavailable Care Team Providers Care Loss Mitigation Specialist Name Role Phone PCP Unavailable Allergies Active [...] DM type 1 (diabetes mellitus, type 1) ([facility]) 07/29/2014 Abdominal pain, other specified site 03/19/2014 CAD (coronary artery disease) 03/19/2014 Overview: As per patient report he had an AR 4 years ago and had 2 stent placed. Rash 03/19/2014 Hyperglycemia 03/18/2014 Social History Tobacco Use Types Packs/Day Years Used Date Never Smoker Alcohol Use Drinks/Week oz/Week Comments No Sex Assigned at Date Recorded Not on file Last Filed Vital Signs Not on file Plan of Treatment Health Maintenance Due Date Last Done Comments INFLUENZA VACCINE 04/09/2018 Results Not on fileafter 05/03/2017
[2018-05-04] MEDS ORDERED: PROMETHAZINE HCL 25 MG TAB PO PRN (14:00)
[2018-05-04] MEDS ORDERED: HYDROCODONE/APAP 10MG-325MG TAB PO ONE (14:00)
[2018-05-04 14:30] LABS: BASOPHILS # (AUTO) 0.1 (0.0-0.1); EOSINOPHILS # (AUTO) 0.1 (0.0-0.4); EOSINOPHILS % 1.4 % (0.0-6.0); HEMATOCRIT 47.3 % (38.2-49.6); HEMOGLOBIN 15.7 g/dL (14.0-18.0); LYMPHOCYTES # (AUTO) 1.7 (1.0-3.2); LYMPHOCYTES % 24.1 % (18.0-39.1); MEAN CORPUSCULAR HGB CONC 33.2 g/dL (31-35); MEAN CORPUSCULAR VOLUME 81.3 fL (81-99); MONOCYTES # (AUTO) 0.5 (0.2-0.8); MONOCYTES % 6.8 % (4.4-11.3); NEUTROPHILS # (AUTO) 4.7 (2.1-6.9); NEUTROPHILS % 66.3 % (38.7-80.0); PLATELET COUNT 282 x10e3/uL (140-360); RED BLOOD COUNT 5.82 x10e6/uL (4.3-5.7); RED CELL DISTRIBUTION WIDTH 12.5 % (11.7-14.4)
[2018-05-04 14:41] LABS: CLARITY,URINE CLEAR (CLEAR); COLOR,URINE YELLOW (YELLOW); LEUKOCYTE ESTERASE ,URINE NEGATIVE (NEGATIVE)
[2018-05-04 14:42] LABS: BILIRUBIN,URINE NEGATIVE (NEGATIVE); KETONES,URINE NEGATIVE (NEGATIVE); NITRITE,URINE NEGATIVE (NEGATIVE); PROTEIN,URINE DIPSTICK 2+ (NEGATIVE); URINE UROBILINOGEN 0.2 mg/dL (0.2 - 1)
[2018-05-04 14:45] LABS: ALANINE AMINOTRANSFERASE 18 IU/L (0-55); ALBUMIN 4.2 g/dL (3.5-5.0); ALBUMIN/GLOBULIN RATIO 1.2 (0.8-2.0); ALKALINE PHOSPHATASE 100 IU/L (40-150); ANION GAP 14.8 mmol/L (8-16); BLOOD UREA NITROGEN 10 mg/dL (7-26); BUN/CREATININE RATIO 11 (6-25); CALCIUM 9.9 mg/dL (8.4-10.2); CARBON DIOXIDE 23 mmol/L (22-29); CHLORIDE 101 mmol/L (98-107); CREATININE, SERUM 0.91 mg/dL (0.72-1.25); EST GLOMERULAR FILTRATION RATE > 60 ML/MIN (60-); GLUCOSE 267 mg/dL (74-118); POTASSIUM 3.8 mmol/L (3.5-5.1); SODIUM 135 mmol/L (136-145)
[2018-05-04 14:52] LABS: BACTERIA,URINE MODERATE /HPF; EPITHELIAL CELLS,URINE FEW /LPF; MUCUS,URINE MODERATE (RARE)
--- NOTE | 2018-05-04 16:23 | Diagnostic Imaging Report ---
ADDENDUM #1 The following addendum is being made to comply with coding criteria, and does not substantially change the findings or recommendations of the original report All CT scans are performed using radiation dose reduction techniques. Technical factors are evaluated and adjusted to ensure appropriate moderation of exposure. Automated dose management technology is applied to adjust the radiation dose to minimize exposure while achieving a diagnostic-quality image. Signed by: Dr. Mejia Hickman M.D. on 05/14/2018 2:59 PM ORIGINAL REPORT EXAM: CT Abdomen and Pelvis WITHOUT contrast INDICATION: Left flank pain. Renal stone COMPARISON: 12/07/2017 TECHNIQUE: Abdomen and pelvis were scanned utilizing a multidetector helical scanner from the lung base to the pubic symphysis without administration of IV contrast. Absence of intravenous contrast decreases sensitivity for detection of focal lesions and vascular pathology. Coronal and sagittal reformations were obtained. Routine protocol was performed. IV CONTRAST: None. ORAL CONTRAST: Water RADIATION DOSE: Total DLP: 816.16 mGy*cm Estimated effective dose: (DLP x 0.015 x size factor) mSv COMPLICATIONS: None FINDINGS: LINES and TUBES: None. LOWER THORAX: Unremarkable HEPATOBILIARY: No focal hepatic lesions. No biliary ductal dilation. GALLBLADDER: Surgically absent SPLEEN: No splenomegaly. PANCREAS: No focal masses or ductal dilatation. ADRENALS: No adrenal nodules KIDNEYS/URETERS: No hydronephrosis. Simple appearing cyst in the right kidney. Bilateral mild perinephric fat stranding could be due to chronic medical renal disease. No urinary tract calcifications are seen. No stones. GI TRACT: No abnormal distention, wall thickening, or evidence of bowel obstruction. PELVIC ORGANS/BLADDER: Unremarkable. LYMPH NODES: No lymphadenopathy. VESSELS: Scattered vascular calcification.. PERITONEUM / RETROPERITONEUM: No free air or fluid. BONES: Scattered degenerative change. SOFT TISSUES: Unremarkable. IMPRESSION: 1. Mild perinephric fat stranding could be due to chronic medical renal disease. No urinary tract calcifications are seen. Signed by: Dr. Mejia Hickman M.D. on 05/04/2018 4:19 PM
[2018-05-04] MEDS ORDERED: SODIUM CHLORIDE 0.9% 1000ML 1,000 ML IV STA (17:24)
[2018-05-04] MEDS ORDERED: DICYCLOMINE HCL 20 MG/2 ML VIAL IM ONE (17:30)
[2018-05-04] MEDS ORDERED: HYOSCYAMINE SULFATE 0.5 MG/ML INJ IV ONE (17:45)
[2018-05-04] MEDS ORDERED: METOPROLOL TARTRATE INJ 1 MG/ML VIAL IV ONE (17:50)
[2018-05-04] MEDS ORDERED: FENTANYL CITRATE/PF 100MCG/2 ML INJ IV ONE (18:15)
[2018-05-04 18:54] VITALS: BP 165/97
== END 2018-05-04 18:56 | disposition home or self-care (01) ==
LOC: ER 13:37
DX: R10.32 Left lower quadrant pain (principal); R11.2 Nausea with vomiting, unspecified; I51.9 Heart disease, unspecified; Z95.1 Presence of aortocoronary bypass graft
CPT/HCPCS: 36415; 74176; 80053; 81001; 85025; 93005; 99284; J0500; J7030

== ENCOUNTER 2018-06-19 22:40 | Observation (INO) | payer OTHER ==
[~2018-06-19] VITALS: Ht 180.3 cm; Wt 99.8 kg
--- OUTSIDE RECORDS SUMMARY | 2018-06-19 22:43 | XMS REPORT | Clinical Summary ---
Author Author [facility] Address Unknown Phone Unavailable Care Team Providers Care Fiscal Manager Name Role Phone Mariano Novak MD PCP Allergies Comments Active Allergy Reactions Severity Noted Date Morphine 12/10/2017 Metoclopramide Hcl 12/10/2017 Ketorolac 12/10/2017 Ondansetron Hcl 12/10/2017 Medications End Date Status Medication Sig Dispensed Refills Start Date Active atorvastatin (LIPITOR) 40 Take 40 mg by 0 MG tablet mouth daily. Active clopidogrel (PLAVIX) 75 Take 75 mg by 0 mg tablet mouth daily. Active DULoxetine (CYMBALTA) 30 Take 30 mg by 0 MG capsule mouth daily. Active insulin GLARGINE (LANTUS Inject 65 0 SOLOSTAR) 100 unit/mL Units under injection (pen) the skin daily. Active HUMALOG U-100 INSULIN 100 INJECT 20 6 unit/mL injection UNITS 8 SUBCUTANEOUSL Y THREE TIMES A DAY BEFORE MEALS. Active lisinopril Take 10 mg by 0 (PRINIVIL,ZESTRIL) 10 mg mouth daily. tablet Active isosorbide mononitrate TAKE ONE (1) 1 (IMDUR) 30 MG 24 hr TABLET(S) BY 8 tablet MOUTH TWICE A DAY. Active nitroglycerin (NITROSTAT) DISSOLVE ONE 0 0.4 MG SL tablet (1) TABLET(S) 8 UNDER THE TONGUE EVERY 5 MINUTES NEEDED FOR CHEST PAIN. Active pantoprazole (PROTONIX) TAKE ONE (1) 1 40 MG EC tablet TABLET(S) BY 8 MOUTH TWICE A DAY BEFORE MEALS. Active zolpidem (AMBIEN) 5 MG TAKE ONE (1) 0 tablet TABLET(S) BY 8 MOUTH AT BEDTIME NEEDED. Active aspirin (ECOTRIN) 81 MG Take 81 mg by 0 enteric coated tablet mouth daily. Active metoprolol succinate XL Take 1 tablet 3 (TOPROL-XL) 50 mg 24 hr by mouth 8 tablet daily. Active tiZANidine (ZANAFLEX) 4 Take 1 tablet 0 MG tablet by mouth 8 every 8 (eight) hours as needed. Active furosemide (LASIX) 40 Take 40 mg by 0 mg/4 mL solution oral mouth daily. solution 12/10/2017 Discontinued aspirin 325 MG tablet TAKE ONE (1) 0 11/21/201 TABLET(S) BY 8 MOUTH EVERY EIGHT HOURS WITH FOOD. FOR 1 WEEK THEN CONTINUE WITH ASPIRIN 81MG DAILY. 12/10/2017 Discontinued metoprolol tartrate Take 50 mg by 0 (LOPRESSOR) 25 mg tablet mouth 2 (two) times a day. 01/16/2018 Discontinued promethazine (PHENERGAN) TAKE ONE (1) 0 12.5 MG tablet TABLET(S) BY 8 MOUTH EVERY TWELVE HOURS NEEDED. Active Problems Problem Noted Date SVT (supraventricular tachycardia) 01/15/2018 Hypovolemia 01/14/2018 Inappropriate sinus tachycardia 01/12/2018 Coronary artery disease 01/12/2018 High cholesterol 01/12/2018 Diabetes mellitus type I 01/12/2018 Stroke 01/12/2018 Overview: TIA X2 Hx of CABG 01/12/2018 Chest pain 12/10/2017 Encounters Care Team Description Date Type Specialty Elvis Busby MD 06/06/2018 Telephone Pulmonology Caio Valadez MD 01/16/2018 Anesthesia Gastroenterology Event Jose Luis Quinn MD ESOPHAGOGASTRODUODENOSCOPY (EGD) 01/16/2018 Surgery Gastroenterology BalajiDago love DO Mayen Nunez, Jose Isaias, MD Inappropriate sinus tachycardia (Primary Dx); Coronary artery disease of [place] artery of [place] heart with stable angina pectoris; High cholesterol; Type 1 diabetes mellitus without complication; Hx of CABG; Hypovolemia; SVT (supraventricular tachycardia) 01/11/2018 [facility] General Surgery - Encounter 01/16/2018 Kortney Garcia RN 12/12/2017 Patient Quality Outreach Felix Nielsen MD Teqwimuah, Remy, DO Al-Jessica, Maha, MD Chest pain, unspecified type (Primary Dx); Tachycardia; Shortness of breath; Syncope and collapse 12/10/2017 Emergency General Internal Medicine - 12/12/2017 after 06/18/2017 Social History Date Tobacco Use Types Packs/Day Years Used Never Smoker Smokeless Tobacco: Never Used Alcohol Use Drinks/Week oz/Week Comments No Sex Assigned at Date Recorded Not on file Industry Job Start Date Occupation Not on file Not on file Not on file Travel End Travel History Travel Start No recent travel history available. Last Filed Vital Signs Time Taken Vital Sign Reading 01/16/2018 7:43 PM CDT Blood Pressure 120/72 01/16/2018 7:43 PM CDT Pulse 105 01/16/2018 7:43 PM CDT Temperature 36.7 C (98 F) 01/16/2018 7:43 PM CDT Respiratory Rate 18 01/16/2018 7:43 PM CDT Oxygen Saturation 99% - Inhaled Oxygen - Concentration 01/11/2018 11:25 PM CDT Weight 102 kg (225 lb) 01/11/2018 11:25 PM CDT Height 180.3 cm (5' 11") 01/11/2018 11:25 PM CDT Body Mass Index 31.38 Plan of Treatment Health Maintenance Due Date Last Done Comments DIABETIC RETINAL EYE EXAM 1977 DIABETIC FOOT EXAM 1987 URINE MICROALBUMIN 1987 HEPATITIS B VACCINES (1 1996 of 3 - Risk 3-dose series) INFLUENZA VACCINE 02/07/2018 IPV VACCINES Aged Out No longer eligible based on patient's age to complete this topic MENINGOCOCCAL VACCINE Aged Out No longer eligible based on patient's age to complete this topic Implants Device Identifier Shelf Expiration Date Model / Serial / Lot Implanted Type Area Manufactur er Plate Plate Screw Screw Procedures Comments Procedure Name Priority Date/Time Associated Diagnosis POC GLUCOSE Routine 01/16/2018 4:41 PM CDT POC GLUCOSE Routine 01/16/2018 11:58 AM CDT CYTOLOGY Routine 01/16/2018 (NON-GYNECOLOGICAL) 9:33 AM CDT REQUEST SURGICAL PATHOLOGY Routine 01/16/2018 REQUEST 9:29 AM CDT SURGICAL PATHOLOGY Routine 01/16/2018 REQUEST 9:29 AM CDT ESOPHAGOGASTRODUODENOSCOP 01/16/2018 abdominal pain Y (EGD) 8:30 AM CDT POC GLUCOSE Routine 01/16/2018 5:38 AM CDT POC GLUCOSE Routine 01/15/2018 8:44 PM CDT POC GLUCOSE Routine 01/15/2018 5:06 PM CDT POC GLUCOSE Routine 01/15/2018 12:[address] ABDOMEN PELVIS W WO Routine 01/15/2018 CONTRAST 11:58 AM CDT POC GLUCOSE Routine 01/15/2018 6:02 AM CDT POC GLUCOSE Routine 01/15/2018 2:20 AM CDT POC GLUCOSE Routine 01/14/2018 9:40 PM CDT POC GLUCOSE Routine 01/14/2018 4:54 PM CDT ZZESTIMATED GFR Routine 01/14/2018 2:45 PM CDT LIPASE LEVEL Routine 01/14/2018 2:45 PM CDT AMYLASE LEVEL Routine 01/14/2018 2:45 PM CDT COMPREHENSIVE METABOLIC Routine 01/14/2018 PANEL 2:45 PM CDT HC COMPLETE BLD COUNT Routine 01/14/2018 W/AUTO DIFF 2:45 PM CDT POC GLUCOSE Routine 01/14/2018 12:06 PM CDT POC GLUCOSE Routine 01/14/2018 5:51 AM CDT POC GLUCOSE Routine 01/13/2018 8:13 PM CDT POC GLUCOSE Routine 01/13/2018 5:20 PM CDT POC GLUCOSE Routine 01/13/2018 12:24 PM CDT POC GLUCOSE Routine 01/13/2018 5:45 AM CDT POC GLUCOSE Routine 01/12/2018 8:53 PM CDT POC GLUCOSE Routine 01/12/2018 5:25 PM CDT POC GLUCOSE Routine 01/12/2018 11:31 AM CDT D-DIMER STAT 01/12/2018 8:52 AM CDT TROPONIN Routine 01/12/2018 7:52 AM CDT TROPONIN Timed 01/12/2018 2:28 AM CDT XR CHEST 1 VW PORTABLE STAT 01/11/2018 11:18 PM CDT ZZESTIMATED GFR STAT 01/11/2018 11:05 PM CDT B NATRIURETIC PEPTIDE STAT 01/11/2018 11:05 PM CDT TROPONIN STAT 01/11/2018 11:05 PM CDT CREATINE KINASE, TOTAL STAT 01/11/2018 (CPK) 11:05 PM CDT BASIC METABOLIC PANEL STAT 01/11/2018 11:05 PM CDT HC COMPLETE BLD COUNT STAT 01/11/2018 W/AUTO DIFF 11:05 PM CDT ECG ED PRELIMINARY Routine 01/11/2018 INTERPRETATION 10:40 PM CDT SC CRITICAL CARE, E/M Routine 01/11/2018 30-74 MINUTES 10:40 PM CDT ECG 12-LEAD STAT 01/11/2018 10:33 PM CDT POC GLUCOSE Routine 12/12/2017 3:26 PM CDT ECG 12-LEAD STAT 12/12/2017 2:26 PM CDT POC GLUCOSE Routine 12/12/2017 11:06 AM CDT MAGNESIUM LEVEL STAT 12/12/2017 7:35 AM CDT HEMOGLOBIN A1C Routine 12/12/2017 7:35 AM CDT THYROID STIMULATING Routine 12/12/2017 HORMONE 7:35 AM CDT LIPID PANEL Routine 12/12/2017 7:35 AM CDT POC GLUCOSE Routine 12/12/2017 5:35 AM CDT POC GLUCOSE Routine 12/11/2017 8:02 PM CDT POC GLUCOSE Routine 12/11/2017 4:46 PM CDT POC GLUCOSE Routine 12/11/2017 4:06 PM CDT POC GLUCOSE Routine 12/11/2017 11:44 AM CDT ECHOCARDIOGRAM 2D Routine 12/11/2017 COMPLETE W MMODE SPECTRAL 11:40 AM CDT COLOR DOPPLER ([id number]) POC GLUCOSE Routine 12/11/2017 10:16 AM CDT POC GLUCOSE Routine 12/11/2017 6:13 AM CDT TROPONIN Timed 12/11/2017 12:[address] ABDOMEN PELVIS W STAT 12/10/2017 CONTRAST 9:[address] ANGIOGRAM PE CHEST STAT 12/10/2017 9:31 PM CDT PARTIAL THROMBOPLASTIN Routine 12/10/2017 TIME (PTT) 9:27 PM CDT PROTHROMBIN TIME WITH INR Routine 12/10/2017 9:27 PM CDT INSERT PERIPHERAL IV Routine 12/10/2017 7:44 PM CDT ECG ED PRELIMINARY Routine 12/10/2017 INTERPRETATION 7:44 PM CDT ZZESTIMATED GFR STAT 12/10/2017 7:41 PM CDT CREATINE KINASE, TOTAL STAT 12/10/2017 (CPK) 7:41 PM CDT B NATRIURETIC PEPTIDE STAT 12/10/2017 7:41 PM CDT TROPONIN STAT 12/10/2017 7:41 PM CDT LIPASE LEVEL STAT 12/10/2017 7:41 PM CDT COMPREHENSIVE METABOLIC STAT 12/10/2017 PANEL 7:41 PM CDT HC COMPLETE BLD COUNT STAT 12/10/2017 W/AUTO DIFF 7:41 PM CDT ECG 12-LEAD Routine 12/10/2017 7:17 PM CDT after 06/18/2017 Results * POC glucose (01/16/2018 4:41 PM CDT) Only the most recent of 28 results within the time period is included. POC glucose 214 (H) 65 - 99 mg/dL [facility] DEPARTMENT OF Comment: PATHOLOGY AND Meter ID: [id number] GENOMIC MEDICINE [employer] Service Operator Helper: Vinod Leiva Performing Organization Address [facility] Phone Number [address] [place] [address] PATHOLOGY AND GENOMIC MEDICINE * Cytology (non-gynecological) request (01/16/2018 9:33 AM CDT) [facility] DEPARTMENT OF PATHOLOGY AND GENOMIC MEDICINE Cytology See link below for PDF Lab [facility] DEPARTMENT OF (non-gynecological) Report PATHOLOGY AND report GENOMIC MEDICINE Result status This is Final Report to [facility] DEPART[facility] OF [id number] PATHOLOGY AND GENOMIC MEDICINE Performing Organization Address [facility] Phone Number [facility] [address] [place] [address] PATHOLOGY AND GENOMIC MEDICINE * Surgical pathology request (01/16/2018 9:29 AM CDT) Only the most recent of 2 results within the time period is included. [facility] DEPARTMENT OF PATHOLOGY AND GENOMIC MEDICINE Surgical pathology report See link below for PDF Lab [facility] DEPART[facility] OF Report PATHOLOGY AND GENOMIC MEDICINE Result status This is Supplemental Report to [facility] DEPART[facility] OF [id number] PATHOLOGY AND GENOMIC MEDICINE Performing Organization Address City/State/Zipcode Phone Number [facility] [place] [address] [place] [address] PATHOLOGY AND GENOMIC MEDICINE * CT Abdomen Pelvis W Wo Contrast (01/15/2018 11:58 AM CDT) Narrative Performed At EXAMINATION:CT ABDOMEN PELVIS W WO CONTRAST [facility] CLINICAL HISTORY:Abd distension, Abd paindiverticulitis suspected [...] No acute findings. No evidence of diverticulitis. [id number] Procedure Note Hm Interface, Radiology Results Incoming [...] No acute findings. No evidence of diverticulitis. [facility]-[id number] Performing Organization Address City/[facility]/Zipcode Phone Number [facility] [address] [place] [address] * Estimated GFR (01/14/2018 2:45 PM CDT) Only the most recent of 3 results within the time period is included. GFR Non Af Amer >90 mL/min/1.73 m2 [facility] DEPARTMENT OF PATHOLOGY AND GENOMIC MEDICINE GFR Af Amer >90 mL/min/1.73 m2 [facility] DEPART[facility] OF Comment: PATHOLOGY AND Chronic [...] Americans. Specimen Plasma specimen Performing Organization Address City/State/Zipcode Phone Number [address] [place] [address] PATHOLOGY AND GENOMIC MEDICINE * CBC with platelet and differential (01/14/2018 2:45 PM CDT) Only the most recent of 3 results within the time period is included. WBC 8.40 4.50 - 11.00 k/uL [facility] DEPARTMENT OF PATHOLOGY AND GENOMIC MEDICINE RBC 5.51 4.40 - 6.00 m/uL [facility] DEPARTMENT OF PATHOLOGY AND GENOMIC MEDICINE HGB 14.9 14.0 - 18.0 g/dL [facility] DEPARTMENT OF PATHOLOGY AND GENOMIC MEDICINE HCT 46.1 41.0 - 51.0 % [facility] DEPARTMENT OF PATHOLOGY AND GENOMIC MEDICINE MCV 83.7 82.0 - 100.0 fL [facility] DEPARTMENT OF PATHOLOGY AND GENOMIC MEDICINE MCH 27.0 27.0 - 34.0 pg [facility] DEPARTMENT OF PATHOLOGY AND GENOMIC MEDICINE MCHC 32.3 31.0 - 37.0 g/dL [facility] DEPARTMENT OF PATHOLOGY AND GENOMIC MEDICINE RDW - SD 37.9 37.0 - 55.0 fL [facility] DEPARTMENT OF PATHOLOGY AND GENOMIC MEDICINE MPV 10.0 8.8 - 13.2 fL [facility] DEPARTMENT OF PATHOLOGY AND GENOMIC MEDICINE Platelet count 268 150 - 400 k/uL [facility] DEPARTMENT OF PATHOLOGY AND GENOMIC MEDICINE Nucleated RBC 0.00 /100 WBC [facility] DEPARTMENT OF PATHOLOGY AND GENOMIC MEDICINE Neutrophils 72.6 (H) 39.0 - 69.0 % [facility] DEPARTMENT OF PATHOLOGY AND GENOMIC MEDICINE Lymphocytes 18.5 (L) 25.0 - 45.0 % [facility] DEPARTMENT OF PATHOLOGY AND GENOMIC MEDICINE Monocytes 5.6 0.0 - 10.0 % [facility] DEPARTMENT OF PATHOLOGY AND GENOMIC MEDICINE Eosinophils 2.4 0.0 - 5.0 % [facility] DEPARTMENT OF PATHOLOGY AND GENOMIC MEDICINE Basophils 0.7 0.0 - 1.0 % [facility] PATHOLOGY AND GENOMIC MEDICINE Specimen Blood Performing Organization Address [facility] Phone Number [facility] OF [address] [place] [address] [place] [address] PATHOLOGY [facility] * Lipase level (01/14/2018 2:45 PM CDT) Only the most recent of 2 results within the time period is included. Lipase 21 13 - 60 U/L [facility] DEPARTMENT OF PATHOLOGY AND GENOMIC MEDICINE Specimen Plasma specimen Performing Organization Address City/[facility] Phone Number [address] [place] [address] PATHOLOGY AND GENOMIC MEDICINE * Amylase level (01/14/2018 2:45 PM CDT) Amylase 34 13 - 73 U/L [facility] DEPARTMENT OF PATHOLOGY AND GENOMIC MEDICINE Specimen Plasma specimen Performing Organization Address City/State/Zipcode Phone Number [facility] [address] [place] [address] PATHOLOGY AND GENOMIC MEDICINE * Comprehensive metabolic panel (01/14/2018 2:45 PM CDT) Only the most recent of 2 results within the time period is included. Sodium 139 135 - 148 mEq/L [facility] DEPARTMENT OF PATHOLOGY AND GENOMIC MEDICINE Potassium 4.1 3.5 - 5.0 mEq/L [facility] DEPARTMENT OF PATHOLOGY AND GENOMIC MEDICINE Chloride 100 98 - 112 mEq/L [facility] DEPARTMENT OF PATHOLOGY AND GENOMIC MEDICINE CO2 25 24 - 31 mEq/L [facility] DEPARTMENT OF PATHOLOGY AND GENOMIC MEDICINE Anion gap 14@ANIO 7 - 15 mEq/L [facility] DEPARTMENT OF PATHOLOGY AND GENOMIC MEDICINE BUN 20 6 - 20 mg/dL [facility] DEPARTMENT OF PATHOLOGY AND GENOMIC MEDICINE Creatinine 0.7 0.7 - 1.2 mg/dL [facility] DEPARTMENT OF PATHOLOGY AND GENOMIC MEDICINE Glucose 235 (H) 65 - 99 mg/dL [facility] DEPARTMENT OF PATHOLOGY AND GENOMIC MEDICINE Calcium 9.4 8.3 - 10.2 mg/dL [facility] DEPARTMENT OF PATHOLOGY AND GENOMIC MEDICINE Protein 6.8 6.3 - 8.3 g/dL [facility] DEPARTMENT OF Comment: PATHOLOGY AND GENOMIC MEDICINE 4.6-7.0 g/dL 1 week 4.4-7.6 g/dL 7 months-1year 5.1-7.3 g/dL 1-2 years5.6-7 .5 g/dL >3 years6.0-8 .0 g/dL 18-150 6.3-8.3 g/dL Albumin 4.0 3.5 - 5.0 g/dL [facility] DEPARTMENT OF PATHOLOGY AND GENOMIC MEDICINE A/G ratio 1.4 0.7 - 3.8 [facility] DEPARTMENT OF PATHOLOGY AND GENOMIC MEDICINE Alkaline phosphatase 97 40 - 129 U/L [facility] DEPARTMENT OF PATHOLOGY AND GENOMIC MEDICINE AST 15 10 - 50 U/L [facility] DEPARTMENT OF PATHOLOGY AND GENOMIC MEDICINE ALT 16 5 - 50 U/L [facility] DEPARTMENT OF PATHOLOGY AND GENOMIC MEDICINE Total bilirubin 0.5 0.0 - 1.2 mg/dL [facility] DEPARTMENT OF PATHOLOGY AND [facility] Specimen Plasma specimen Performing Organization Address [facility] Phone Number [address] [place] [address] PATHOLOGY AND [facility] [facility] * D-dimer (01/12/2018 8:52 AM CDT) D-dimer 0.53 (H) 0.00 - 0.40 ug/mL FEU [facility] DEPARTMENT OF Comment: PATHOLOGY AND Units [...] and malignancies. Specimen Blood Performing Organization Address [facility] Phone Number [address] [place] [address] PATHOLOGY AND [facility] * Troponin (01/12/2018 7:52 AM CDT) Only the most recent of 5 results within the time period is included. Troponin <0.300 0.000 - 0.300 ng/mL [facility] DEPARTMENT OF Comment: PATHOLOGY AND 0.30 - 1.49 GENOMIC MEDICINE ng/mlMay indicate increased risk of acute coronary syndrome. >=1.5 ng/ml Consistent with acute myocardial infarction. The diagnostic value of a single normal or non-diagnostic result is questionable.Serial samples at 2-6 hour intervals are required to rule out acute myocardial injury. Specimen Plasma specimen Performing Organization Address [facility] Phone Number [address] [place] [id number] PATHOLOGY AND [facility] [facility] * XR Chest 1 Vw Portable (01/11/2018 11:18 PM CDT) Narrative Performed At EXAMINATION:XR CHEST 1 VW PORTABLE [facility] CLINICAL HISTORY:chest pain tachycardia recent hx CABG COMPARISON:11/11/2014 IMPRESSION: Mild prominence of interstitial lung markings, compatible with mild vascular congestion. Right lung base atelectasis versus infiltrate. No effusions or pneumothorax. Cardiomediastinal silhouette is within normal limits. No acute osseous abnormalities. [facility]-[id number] Procedure Note Hm Interface, Radiology Results Incoming - 01/12/2018 12:01 AM CDT EXAMINATION: XR CHEST 1 VW PORTABLE CLINICAL HISTORY: chest pain tachycardia recent hx CABG COMPARISON: 11/11/2014 IMPRESSION: Mild prominence of interstitial lung markings, compatible with mild vascular congestion. Right lung base atelectasis versus infiltrate. No effusions or pneumothorax. Cardiomediastinal silhouette is within normal limits. No acute osseous abnormalities. [facility]-[id number] Performing Organization Address City/[facility]/Zipcode Phone Number [facility] [address] [place] [address] * B natriuretic peptide (01/11/2018 11:05 PM CDT) Only the most recent of 2 results within the time period is included. BNP 15 0 - 100 pg/mL [facility] DEPARTMENT OF PATHOLOGY AND GENOMIC MEDICINE Specimen Blood Performing Organization Address [facility] Phone Number [address] [place] [address] PATHOLOGY AND [facility] * Creatine kinase, total (CPK) (01/11/2018 11:05 PM CDT) Only the most recent of 2 results within the time period is included. Creatine kinase 120 39 - 308 U/L [facility] DEPARTMENT OF PATHOLOGY AND GENOMIC MEDICINE Specimen Plasma specimen Performing Organization Address [facility] Phone Number [address] [place] [address] PATHOLOGY AND [facility] MEDICINE * Basic metabolic panel (01/11/2018 11:05 PM CDT) Sodium 140 135 - 148 mEq/L [facility] DEPARTMENT OF PATHOLOGY AND GENOMIC MEDICINE Potassium 4.3 3.5 - 5.0 mEq/L [facility] DEPARTMENT OF PATHOLOGY AND GENOMIC MEDICINE Chloride 99 98 - 112 mEq/L [facility] DEPARTMENT OF PATHOLOGY AND GENOMIC MEDICINE CO2 25 24 - 31 mEq/L [facility] DEPARTMENT OF PATHOLOGY AND GENOMIC MEDICINE Anion gap 16@ANIO (H) 7 - 15 mEq/L [facility] DEPARTMENT OF PATHOLOGY AND GENOMIC MEDICINE BUN 17 6 - 20 mg/dL [facility] DEPARTMENT OF PATHOLOGY AND GENOMIC MEDICINE Creatinine 0.9 0.7 - 1.2 mg/dL [facility] DEPARTMENT OF PATHOLOGY AND GENOMIC MEDICINE Glucose 322 (H) 65 - 99 mg/dL [facility] DEPARTMENT OF PATHOLOGY AND GENOMIC MEDICINE Calcium 9.6 8.3 - 10.2 mg/dL [facility] DEPARTMENT OF PATHOLOGY AND GENOMIC MEDICINE Specimen Plasma specimen Performing Organization Address City/State/Zipcode Phone Number [facility] [address] [place] [address] PATHOLOGY AND GENOMIC MEDICINE * ECG ED Preliminary Interpretation - NOT AN ORDER (01/11/2018 10:40 PM CDT) Only the most recent of 2 results within the time period is included. Narrative Performed At Dago Carpio DO 01/12/20181:35 AM ECG ED Preliminary Interpretation - Not an Order Performed by: DAGO CARPIO Authorized by: DAGO CARPIO ECG reviewed by ED Physician in the absence of a armored vehicle officer: yes Interpretation: Interpretation: abnormal Rate: ECG rate:137 ECG rate assessment: tachycardic Rhythm: Rhythm: sinus tachycardia Ectopy: Ectopy: none QRS: QRS axis:Normal Conduction: Conduction: normal ST segments: ST segments:Normal T waves: T waves: normal * CRITICAL CARE (01/11/2018 10:40 PM CDT) Narrative Performed At Dago Carpio DO 01/12/20181:35 [...] no * ECG 12 lead (01/11/2018 10:33 PM CDT) Only the most recent of 3 results within the time period is included. Ventricular rate 137 [facility] Atrial rate 137 [facility] SC interval 130 [facility] QRSD interval 82 [facility] QT interval 364 [facility] QTC interval 549 [facility] P axis 1 78 [facility] QRS axis 1 52 [facility] T wave axis 60 [facility] EKG impression Sinus tachycardia-Nonspecific [facility] MUSE T wave abnormality-Abnormal ECG Incomplete right bundle branch block-In automated comparison with ECG of 12-DEC-2017 14:26,-No significant change was found- Performing Organization Address City/[facility] Phone Number [facility] MUSE [address] [place] [address] * Thyroid stimulating hormone (12/12/2017 7:35 AM CDT) TSH 1.83 0.27 - 4.20 uIU/mL [facility] DEPARTMENT OF PATHOLOGY AND GENOMIC MEDICINE Specimen Plasma specimen Performing Organization Address [facility] Phone Number [address] [place] [address] PATHOLOGY AND GENOMIC MEDICINE * Magnesium level (12/12/2017 7:35 AM CDT) Magnesium 1.8 1.6 - 2.6 mg/dL [facility] DEPARTMENT OF PATHOLOGY AND GENOMIC MEDICINE Specimen Plasma specimen Performing Organization Address [facility] Phone Number [address] [place] [address] PATHOLOGY AND GENOMIC MEDICINE * Hemoglobin A1c (12/12/2017 7:35 AM CDT) Hemoglobin A1C 9.0 (H) 4.0 - 6.0 % [facility] DEPARTMENT OF Comment: PATHOLOGY AND GENOMIC MEDICINE Less than 6% - Goal of therapy for Type II Diabetes Less than 7%-Goal of therapy for Type I Diabetes Less than 8%-Accepta ble control for Type I or Type II Diabetes Greater than 8%-Unacceptabl e control; action indicated. ([id number]) Specimen Blood Performing Organization Address [facility] Phone Number [facility] [id number] [place] [address] [place] [address] PATHOLOGY AND GENOMIC MEDICINE * Lipid panel (12/12/2017 7:35 AM CDT) Cholesterol 174 <200 mg/dL [facility] DEPARTMENT OF PATHOLOGY AND GENOMIC MEDICINE Triglycerides 190 (H) <150 mg/dL [facility] DEPARTMENT OF PATHOLOGY AND GENOMIC MEDICINE HDL cholesterol 28 (L) >40 mg/dL [facility] DEPARTMENT OF PATHOLOGY AND GENOMIC MEDICINE LDL cholesterol 118 (H)Comment: Result <100 mg/dL [facility] obtained by direct LDL PATHOLOGY AND measurement GENOMIC MEDICINE Lipid panel SeeBelow [facility] DEPARTMENT OF interpretation Comment: PATHOLOGY AND [...] mg/dL) Specimen Plasma specimen Performing Organization Address [facility] [place] Phone Number [facility] [place] [address] [place] [address] PATHOLOGY AND [facility] * Echocardiogram complete w contrast and 3D if needed (12/11/2017 11:40 AM CDT) LA volume 37.0 cm3 [facility] LA Area d A4C 50 cm2 [facility] LA diam s 4.90 cm [facility] Aortic Root 3.24 cm [facility] SC End Hull Grad 3.48 [facility] SC End Diat Nelson 0.93 [facility] D [...] LV EF,BP 52.89 % [facility] [place],d A2C 8.14 cm [facility] [place],d A4C 7.96 cm [facility] [place],s A2C 7.57 cm [facility] [place],s A4C 6.93 cm [facility] LV,s 3.16 [...] [facility] AoV area i VTI BSA [place] 1.11 cm2/m2 [facility] LV SI MOD BP [place] 19.48 ml/m2 [facility] LV Vol Index [...] 16.37 mL/m2 [facility] Narrative Performed At [facility] The left ventricle chamber size is normal. Left Ventricular ejection fraction is 50 - 55%. No pericardial effusion Spectral Doppler shows impaired relaxation pattern of left ventricular diastolic filling. Performing Organization Address City/State/Zipcode Phone Number [facility] [address] [place] [address] * CT Abdomen Pelvis W Contrast (12/10/2017 9:33 PM CDT) Narrative Performed At EXAMINATION:CT ABDOMEN PELVIS W [...] appendectomy. 2.No pelvic mass, adenopathy, fluid collection. [facility]-[id number] Procedure Note Hm Interface, Radiology Results Incoming - 12/10/2017 9:41 PM CDT EXAMINATION: CT [...] 2. No pelvic mass, adenopathy, fluid collection. [facility]-[id number] Performing Organization Address City/State/Zipcode Phone Number [facility] [address] [place] [address] * CT Angiogram Pe Chest (12/10/2017 9:31 PM CDT) Narrative Performed At EXAMINATION:CT ANGIOGRAM PE CHEST [facility] CLINICAL HISTORY: recent surgery and right sided [...] No acute abnormality identified in the chest. [facility]-[id number] Procedure Note Interface, Radiology Results Incoming - [...] No acute abnormality identified in the chest. [facility]-[id number] Performing Organization Address [facility] Phone Number [facility] [address] [place] [address] * Partial thromboplastin time, activated (12/10/2017 9:27 PM CDT) PTT 31.3 23.0 - 36.0 sec [facility] DE[facility] OF Comment: PATHOLOGY AND PTT therapeutic range for [facility] unfractionated heparin is 61.0-112.0 seconds which corresponds to Anti-Xa 0.3-0.7 U/ml. Specimen Blood Performing Organization Address [facility] Phone Number [address] [place] [address] PATHOLOGY AND [facility] * Prothrombin time with INR (12/10/2017 9:27 PM CDT) Prothrombin time 13.8 12.0 - 15.0 sec [facility] DEPARTMENT OF PATHOLOGY AND GENOMIC MEDICINE INR 1.0 [facility] DEPART[facility] OF Comment: PATHOLOGY AND The International Normalized GENOMIC MEDICINE Ratio (INR) is a therapeutic monitoring tool for patients who are stable on oral anticoagulant therapy. An INR of 2.0-3.0 is suggested for deep vein thrombosis/pulmonary embolism. Specimen Blood Performing Organization Address [facility] Number [facility] DE[facility] [address] [place] [address] PATHOLOGY AND [facility] * Insert peripheral IV (12/10/2017 7:44 PM CDT) Narrative Performed At Felix Nielsen MD 12/11/20172:37 [...] procedure well with no immediate complications after 06/18/2017 Insurance Payer Benefit Subscriber ID Type Phone Address Plan / Group [employer]HI [employer] xxxxxxxxxx Commercial [employer]HI Advance Directives Patient has advance care planning documents on file. For more information, diann berrios contact: Jori Cramer [address] [place] [place] [address]
--- OUTSIDE RECORDS SUMMARY | 2018-06-19 22:44 | XMS REPORT | Clinical Summary ---
Author Author TEJINDER [facility] Organization [facility] Address Unknown Phone Unavailable Care Team Providers Care Production Service Manager Name Role Phone Sharpless PCP Allergies Comments Active Allergy Reactions Severity Noted Date swelling Iodine Containing Rash Low 12/14/2012 Multivitamin Levofloxacin Itching 07/29/2014 Morphine Hcl Rash Low 03/19/2014 AMS Metoclopramide Hcl Rash Low 12/14/2012 Severe hypertension Ketorolac 12/14/2012 AMS Ondansetron Hcl (Pf) Rash Low 12/14/2012 Medications End Date Status Medication Sig Dispensed Refills Start Date Active clopidogrel (PLAVIX) 75 Take 75 mg by 0 mg tablet mouth daily. Active DULoxetine (CYMBALTA) 30 Take 30 mg by 0 MG capsule mouth daily. Active aspirin 81 MG EC tablet Take 81 mg by 0 mouth daily. Active atorvastatin (LIPITOR) 40 Take 40 mg by 0 MG tablet mouth daily. Active HYDROcodone-acetaminophen Take 1 tablet 0 (NORCO 5-325) 5-325 mg by mouth per tablet every 6 (six) hours as needed. Active metroNIDAZOLE (FLAGYL) Take 1 tablet 21 tablet 0 500 MG tablet (500 mg 5 total) by mouth 3 (three) times daily. Active metoprolol (LOPRESSOR) 25 Take 25 mg by 0 MG tablet mouth 2 (two) times daily. Active ISOSORBIDE DINITRATE ORAL Take by 0 mouth. Active lisinopril Take 10 mg by 0 (PRINIVIL,ZESTRIL) 10 MG mouth daily. tablet Active insulin lispro (HUMALOG) Inject 18 0 100 unit/mL InPn Units subcutaneousl y 3 (three) times daily with meals. Active insulin glargine Inject 65 0 (BASAGLAR KWIKPEN) 100 Units unit/mL (3 mL) InPn subcutaneousl y nightly. Active escitalopram oxalate Take 10 mg by 0 (LEXAPRO) 10 MG tablet mouth daily. Active zolpidem (AMBIEN) 10 mg Take 10 mg by 0 tablet mouth as needed for Insomnia. Active Problems Problem Noted Date Dehydration 07/29/2014 DM type 1 (diabetes mellitus, type 1) 07/29/2014 Abdominal pain, other specified site 03/19/2014 CAD (coronary artery disease) 03/19/2014 Overview: As per patient report he had an GA 4 years ago and had 2 stent placed. Rash 03/19/2014 Hyperglycemia 03/18/2014 Social History Date Tobacco Use Types Packs/Day Years Used Never Smoker Alcohol Use Drinks/Week oz/Week Comments No Sex Assigned at Date Recorded Not on file Industry Job Start Date Occupation Not on file Not on file Not on file Travel End Travel History Travel Start No recent travel history available. Last Filed Vital Signs Not on file Plan of Treatment Health Maintenance Due Date Last Done Comments INFLUENZA VACCINE 04/09/2018 Results Not on fileafter 06/18/2017 Insurance Payer Benefit Subscriber ID Type Phone Address Plan / Group [facility] H[facility]/POS CARE POS SELECT CHOICE Advance Directives For more information, please contact: [facility] [address] [place] [address] Date Inactivated Comments Code Status Date Activated 07/31/2014 7:34 PM Full Code 07/29/2014 10:18 AM This code status was determined by: Patient 03/20/2014 8:37 PM Full Code 03/19/2014 4:48 AM This code status was determined by: Patient
[2018-06-20] MEDS ORDERED: SODIUM CHLORIDE 0.9% 1000ML 1,000 ML IV STA (00:09)
[2018-06-20] MEDS ORDERED: PANTOPRAZOLE 40 MG 10ML VIAL IV STA (00:09)
[2018-06-20] MEDS ORDERED: HYDROMORPHONE 1MG/1ML INJ IV STA ×2 (00:09→02:58)
[2018-06-20] MEDS ORDERED: PROMETHAZINE 12.5MG/ NACL 0.9% 12.5 MG/50 ML BAG IV ONE (00:15)
[2018-06-20] MEDS ORDERED: PANTOPRAZOLE 40 MG 10ML VIAL ONE (00:26)
[2018-06-20] MEDS ORDERED: HYDROMORPHONE 2MG/ML 2 MG/ML ML ONE ×2 (00:30→03:10)
[2018-06-20 00:47] LABS: BASOPHILS # (AUTO) 0.1 (0.0-0.1); BASOPHILS % 0.9 % (0.0-1.0); EOSINOPHILS # (AUTO) 0.2 (0.0-0.4); EOSINOPHILS % 2.7 % (0.0-6.0); HEMATOCRIT 49.4 % (38.2-49.6); HEMOGLOBIN 16.2 g/dL (14.0-18.0); LYMPHOCYTES % 25.2 % (18.0-39.1); MEAN CORPUSCULAR HEMOGLOBIN 27.2 pg (28-32); MEAN CORPUSCULAR HGB CONC 32.8 g/dL (31-35); MONOCYTES # (AUTO) 0.6 (0.2-0.8); MONOCYTES % 7.9 % (4.4-11.3); NEUTROPHILS # (AUTO) 4.9 (2.1-6.9); NEUTROPHILS % 62.9 % (38.7-80.0); PLATELET COUNT 260 x10e3/uL (140-360); RED BLOOD COUNT 5.95 x10e6/uL (4.3-5.7)
[2018-06-20 00:54] LABS: INR 0.8; PROTHROMBIN TIME 11.8 seconds (11.9-14.5)
[2018-06-20 00:55] LABS: PARTIAL THROMBOPLASTIN TIME 31.5 seconds (23.8-35.5)
[2018-06-20 00:57] LABS: BILIRUBIN,URINE NEGATIVE (NEGATIVE); CLARITY,URINE CLEAR (CLEAR); COLOR,URINE YELLOW (YELLOW); KETONES,URINE NEGATIVE (NEGATIVE); LEUKOCYTE ESTERASE ,URINE NEGATIVE (NEGATIVE); NITRITE,URINE NEGATIVE (NEGATIVE); PROTEIN,URINE DIPSTICK NEGATIVE (NEGATIVE); URINE UROBILINOGEN 0.2 mg/dL (0.2 - 1)
[2018-06-20] MEDS ORDERED: DIPHENHYDRAMINE HCL INJ 50 MG/ML VIAL IV ONE ×2 (01:00→03:00)
[2018-06-20 01:01] LABS: ALANINE AMINOTRANSFERASE 24 IU/L (0-55); ALBUMIN 3.8 g/dL (3.5-5.0); ALKALINE PHOSPHATASE 80 IU/L (40-150); ANION GAP 18.6 mmol/L (8-16); BLOOD UREA NITROGEN 13 mg/dL (7-26); BUN/CREATININE RATIO 15 (6-25); CALCIUM 9.7 mg/dL (8.4-10.2); CARBON DIOXIDE 21 mmol/L (22-29); CHLORIDE 106 mmol/L (98-107); CREATINE KINASE 193 IU/L (30-200); CREATININE, SERUM 0.89 mg/dL (0.72-1.25); EST GLOMERULAR FILTRATION RATE > 60 ML/MIN (60-); GLUCOSE 127 mg/dL (74-118); MAGNESIUM 2.5 MG/DL (1.3-2.1); POTASSIUM 4.6 mmol/L (3.5-5.1); SODIUM 141 mmol/L (136-145)
[2018-06-20 01:06] LABS: BACTERIA,URINE RARE /HPF; EPITHELIAL CELLS,URINE RARE /LPF; MUCUS,URINE FEW (RARE); RBC,URINE 0-5 /HPF (0-5); WBC,URINE (MAN) 0-5 /HPF (0-5)
[2018-06-20 01:21] LABS: THYROID STIMULATING HORMONE 1.614 uIU/mL (0.350-4.940)
[2018-06-20] MEDS ORDERED: DIAZEPAM 5 MG TAB PO ONE (02:00)
--- NOTE | 2018-06-20 02:08 | Diagnostic Imaging Report ---
EXAMINATION: CT of the lumbar spine with contrast HISTORY: Low back pain, spasm radiating bilaterally, tachycardia, diabetes. COMPARISON: Abdomen CT on 05/04/2018 TECHNIQUE: Multidetector helical axial images were obtained with contrast from L1 to S1. The images were reconstructed using bone and soft tissue algorithms and were viewed in axial, sagittal, and coronal planes. Dose modulation, iterative reconstruction, and/or weight based adjustment of the mA/kV was utilized to reduce the radiation dose to as low as reasonably achievable. Intravenous contrast: 100 mL of Isovue-370 FINDINGS: Alignment: Normal alignment and lordosis. Vertebral bodies: Minimal chronic anterior wedging of the L1 and L2 vertebral bodies, perhaps sequela from old trauma, unchanged from abdomen CT on 05/04/2018. Otherwise height and density. Paraspinal soft tissues: Normal. No mass, fluid collections or abnormal enhancement. Intervertebral disks: L1-L2: Normal. L2-L3: Normal. L3-L4: Normal. L4-L5: Symmetric disc bulge and approximately 6 mm in AP diameter central disc protrusion, with flattening of the ventral thecal sac and mild canal stenosis, otherwise no evidence of nerve root compression. L5-S1: Posterior disc osteophyte complex formation and minimal facet arthrosis. No significant canal or foraminal. Mild degenerative changes of the bilateral sacral joints. IMPRESSION: 1. No acute lumbar spine abnormalities. No mass or fluid collections. 2. Mild canal stenosis at L4-5 due to a small disc protrusion without evidence of nerve root compression. 3. Mild degenerative changes at L5-S1 without canal or foraminal stenoses. 4. Disclaimer: Note is made that acute posttraumatic thecal sac/cauda equina, or ligamentous injury cannot adequately be assessed with CT if there is history of recent trauma. Signed by: Dr. Quita Oneill M.D. on 06/20/2018 2:05 AM
[2018-06-20] MEDS ORDERED: SODIUM CHLORIDE 0.9% 50ML 50 ML ONE (02:34)
[2018-06-20] MEDS ORDERED: IOPAMIDOL 370 MG/ML 200 ML INFUS..BTL INJ ONE (02:35)
--- NOTE | 2018-06-20 02:55 | Diagnostic Imaging Report ---
EXAMINATION: CHEST SINGLE (PORTABLE) INDICATION: TACHYCARDIA COMPARISON: Chest CT 12/07/2017 FINDINGS: AP view TUBES and LINES: None. LUNGS: Lungs are not well inflated. Interstitial opacities extending from the demetri to the periphery. PLEURA: No pleural effusion or pneumothorax. HEART AND MEDIASTINUM: The cardiomediastinal silhouette is unremarkable. BONES AND SOFT TISSUES: No acute osseous lesion. Median sternotomy wires. Soft tissues are unremarkable. UPPER ABDOMEN: No free air under the diaphragm. IMPRESSION: Mild interstitial edema. Signed by: DR. Alexi Pablo MD on 06/20/2018 2:51 AM
[2018-06-20] MEDS ORDERED: DEXTROSE 50% SYRINGE 50 ML IV PRN (03:30)
[2018-06-20] MEDS ORDERED: BASAGLAR SC ×2 (03:31)
[2018-06-20] MEDS ORDERED: PANTOPRAZOLE SO40 MG PO (03:31)
--- OUTSIDE RECORDS SUMMARY | 2018-06-20 03:31 | XMS REPORT | Clinical Summary ---
Author Author TEJINDER [facility] Address Unknown Phone Unavailable Care Team Providers Care Parachute/Combatant Diver Officer Name Role Phone Sharpless PCP Allergies Comments [...] As per patient report he had an MN 4 years ago and had 2 stent [...] INFLUENZA VACCINE 04/09/2018 Results Not on fileafter 06/19/2017 Insurance Payer Benefit Subscriber ID Type Phone Address Plan / Group [facility] H[facility]/POS CARE POS SELECT CHOICE Advance Directives For more information, please contact: [facility] [address] [place] [address] Date Inactivated Comments Code Status Date Activated 07/31/2014 7:34 PM Full Code 07/29/2014 10:18 AM This code status was determined by: Patient 03/20/2014 8:37 PM Full Code 03/19/2014 4:48 AM This code status was determined by: Patient
--- OUTSIDE RECORDS SUMMARY | 2018-06-20 03:31 | XMS REPORT | Clinical Summary ---
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; High cholesterol; Type 1 diabetes mellitus without complication; Hx of CABG; Hypovolemia; SVT (supraventricular tachycardia) 01/11/2018 [facility] General Surgery - Encounter 01/16/2018 Kortney Garcia RN 12/12/2017 Patient Quality Outreach Felix Nielsen MD Teqwimuah, Remy, DO Al-Jessica, Maha, MD Chest pain, unspecified type (Primary Dx); Tachycardia; Shortness of breath; Syncope and collapse 12/10/2017 Emergency General Internal Medicine - 12/12/2017 after 06/19/2017 Social History Date Tobacco Use Types Packs/Day [...] PRELIMINARY Routine 01/11/2018 INTERPRETATION 10:40 PM CDT [place] CRITICAL CARE, E/M Routine 01/11/2018 30-74 MINUTES [...] MMODE SPECTRAL 11:40 AM CDT COLOR DOPPLER (21300) POC GLUCOSE Routine 12/11/2017 10:16 AM CDT [...] 12-LEAD Routine 12/10/2017 7:17 PM CDT after 06/19/2017 Results * POC glucose (01/16/2018 4:41 PM CDT) Only the most recent of 28 results within the time period is included. POC glucose 214 (H) 65 - 99 mg/dL [facility] DEPARTMENT OF Comment: PATHOLOGY AND Meter ID: [id number] GENOMIC MEDICINE Basket Mender: Vinod Leiva Performing Organization Address [facility] Phone Number [address] [place] [address] PATHOLOGY AND GENOMIC MEDICINE * Cytology (non-gynecological) request (01/16/2018 9:33 AM CDT) [facility] DEPARTMENT OF PATHOLOGY AND GENOMIC MEDICINE Cytology See link below for PDF Lab [facility] DEPARTMENT OF (non-gynecological) Report PATHOLOGY AND report GENOMIC MEDICINE Result status This is Final Report to [facility] DEPARTMENT OF [id number] PATHOLOGY AND GENOMIC MEDICINE Performing Organization Address [facility] Phone Number [facility] DEPARTMENT [address] [place] [address] PATHOLOGY AND GENOMIC MEDICINE * Surgical pathology request (01/16/2018 9:29 AM CDT) Only the most recent of 2 results within the time period is included. [facility] DEPARTMENT OF PATHOLOGY AND GENOMIC MEDICINE Surgical pathology report See link below for PDF Lab [facility] DEPARTMENT OF Report PATHOLOGY AND GENOMIC MEDICINE Result status This is Supplemental Report to [facility] DEPARTMENT OF [id number] PATHOLOGY AND GENOMIC MEDICINE Performing Organization Address City/State/Zipcode Phone Number [facility] [place] [place] [address] [place] [address] PATHOLOGY AND GENOMIC MEDICINE * CT Abdomen [...] No acute findings. No evidence of diverticulitis. [id number] Procedure Note Hm Interface, Radiology Results Incoming [...] No acute findings. No evidence of diverticulitis. [facility]-[id number] Performing Organization Address City/[facility]/Zipcode Phone Number [facility] [address] [place] [address] * Estimated GFR (01/14/2018 2:45 PM CDT) Only the most recent of 3 results within the time period is included. GFR Non Af Amer >90 mL/min/1.73 m2 [facility] DEPARTMENT OF PATHOLOGY AND GENOMIC MEDICINE GFR Af Amer >90 mL/min/1.73 m2 [facility] DEPARTMENT OF Comment: PATHOLOGY AND Chronic kidney [...] specimen Performing Organization Address City/State/Zipcode Phone Number [address] [place] [address] PATHOLOGY AND GENOMIC MEDICINE * CBC with platelet and differential (01/14/2018 2:45 PM CDT) Only the most recent of 3 results within the time period is included. WBC 8.40 4.50 - 11.00 k/uL [facility] DEPARTMENT OF PATHOLOGY AND GENOMIC MEDICINE RBC 5.51 4.40 - 6.00 m/uL [facility] DEPARTMENT OF PATHOLOGY AND GENOMIC MEDICINE HGB 14.9 14.0 - 18.0 g/dL [facility] DEPARTMENT OF PATHOLOGY AND GENOMIC MEDICINE HCT 46.1 41.0 - 51.0 % [facility] DEPARTMENT OF PATHOLOGY AND GENOMIC MEDICINE MCV 83.7 82.0 - 100.0 fL [facility] DEPARTMENT OF PATHOLOGY AND GENOMIC MEDICINE MCH 27.0 27.0 - 34.0 pg [facility] DEPARTMENT OF PATHOLOGY AND GENOMIC MEDICINE MCHC 32.3 31.0 - 37.0 g/dL [facility] DEPARTMENT OF PATHOLOGY AND GENOMIC MEDICINE RDW - SD 37.9 37.0 - 55.0 fL [facility] DEPARTMENT OF PATHOLOGY AND GENOMIC MEDICINE MPV 10.0 8.8 - 13.2 fL [facility] DEPARTMENT OF PATHOLOGY AND GENOMIC MEDICINE Platelet count 268 150 - 400 k/uL [facility] DEPARTMENT OF PATHOLOGY AND GENOMIC MEDICINE Nucleated RBC 0.00 /100 WBC [facility] DEPARTMENT OF PATHOLOGY AND GENOMIC MEDICINE Neutrophils 72.6 (H) 39.0 - 69.0 % [facility] DEPARTMENT OF PATHOLOGY AND GENOMIC MEDICINE Lymphocytes 18.5 (L) 25.0 - 45.0 % [facility] DEPARTMENT OF PATHOLOGY AND GENOMIC MEDICINE Monocytes 5.6 0.0 - 10.0 % [facility] DEPARTMENT OF PATHOLOGY AND GENOMIC MEDICINE Eosinophils 2.4 0.0 - 5.0 % [facility] DEPARTMENT OF PATHOLOGY AND GENOMIC MEDICINE Basophils 0.7 0.0 - 1.0 % [facility] PATHOLOGY AND GENOMIC MEDICINE Specimen Blood Performing Organization Address [facility] Phone Number [facility] OF [address] [place] [address] [place] [address] PATHOLOGY [facility] * Lipase level (01/14/2018 2:45 PM CDT) Only the most recent of 2 results within the time period is included. Lipase 21 13 - 60 U/L [facility] DEPARTMENT OF PATHOLOGY AND GENOMIC MEDICINE Specimen Plasma specimen Performing Organization Address City/[facility] Phone Number [address] [place] [address] PATHOLOGY AND GENOMIC MEDICINE * Amylase level (01/14/2018 2:45 PM CDT) Amylase 34 13 - 73 U/L [facility] DEPARTMENT OF PATHOLOGY AND GENOMIC MEDICINE Specimen Plasma specimen Performing Organization Address City/State/Zipcode Phone Number [facility] [address] [place] [address] PATHOLOGY AND GENOMIC MEDICINE * Comprehensive metabolic panel (01/14/2018 2:45 PM CDT) Only the most recent of 2 results within the time period is included. Sodium 139 135 - 148 mEq/L [facility] DEPARTMENT OF PATHOLOGY AND GENOMIC MEDICINE Potassium 4.1 3.5 - 5.0 mEq/L [facility] DEPARTMENT OF PATHOLOGY AND GENOMIC MEDICINE Chloride 100 98 - 112 mEq/L [facility] DEPARTMENT OF PATHOLOGY AND GENOMIC MEDICINE CO2 25 24 - 31 mEq/L [facility] DEPARTMENT OF PATHOLOGY AND GENOMIC MEDICINE Anion gap 14@ANIO 7 - 15 mEq/L [facility] DEPARTMENT OF PATHOLOGY AND GENOMIC MEDICINE BUN 20 6 - 20 mg/dL [facility] DEPARTMENT OF PATHOLOGY AND GENOMIC MEDICINE Creatinine 0.7 0.7 - 1.2 mg/dL [facility] DEPARTMENT OF PATHOLOGY AND GENOMIC MEDICINE Glucose 235 (H) 65 - 99 mg/dL [facility] DEPARTMENT OF PATHOLOGY AND GENOMIC MEDICINE Calcium 9.4 8.3 - 10.2 mg/dL [facility] DEPARTMENT OF PATHOLOGY AND GENOMIC MEDICINE Protein 6.8 6.3 - 8.3 g/dL [facility] DEPARTMENT OF Comment: PATHOLOGY AND GENOMIC MEDICINE 4.6-7.0 g/dL 1 week 4.4-7.6 g/dL 7 months-1year 5.1-7.3 g/dL 1-2 years5.6-7 .5 g/dL >3 years6.0-8 .0 g/dL 18-150 6.3-8.3 g/dL Albumin 4.0 3.5 - 5.0 g/dL [facility] DEPARTMENT OF PATHOLOGY AND GENOMIC MEDICINE A/G ratio 1.4 0.7 - 3.8 [facility] DEPARTMENT OF PATHOLOGY AND GENOMIC MEDICINE Alkaline phosphatase 97 40 - 129 U/L [facility] DEPARTMENT OF PATHOLOGY AND GENOMIC MEDICINE AST 15 10 - 50 U/L [facility] DEPARTMENT OF PATHOLOGY AND GENOMIC MEDICINE ALT 16 5 - 50 U/L [facility] DEPARTMENT OF PATHOLOGY AND GENOMIC MEDICINE Total bilirubin 0.5 0.0 - 1.2 mg/dL [facility] DEPARTMENT OF PATHOLOGY AND Reflektion MEDICINE Specimen Plasma specimen Performing Organization Address [facility] Phone Number [address] [place] [address] PATHOLOGY AND Reflektion MEDICINE * D-dimer (01/12/2018 8:52 AM CDT) D-dimer 0.53 (H) 0.00 - 0.40 ug/mL FEU [facility] DEPARTMENT OF Comment: PATHOLOGY AND Units are [...] and malignancies. Specimen Blood Performing Organization Address [facility] Phone Number [address] [place] [address] PATHOLOGY AND Reflektion MEDICINE * Troponin (01/12/2018 7:52 AM CDT) Only the most recent of 5 results within the time period is included. Troponin <0.300 0.000 - 0.300 ng/mL [facility] DEPARTMENT OF Comment: PATHOLOGY AND 0.30 - 1.49 GENOMIC MEDICINE ng/mlMay indicate increased risk of acute coronary syndrome. >=1.5 ng/ml Consistent with acute myocardial infarction. The diagnostic value of a single normal or non-diagnostic result is questionable.Serial samples at 2-6 hour intervals are required to rule out acute myocardial injury. Specimen Plasma specimen Performing Organization Address [facility] Phone Number [address] [place] [id number] PATHOLOGY AND Reflektion MEDICINE * XR Chest 1 Vw Portable (01/11/2018 11:18 PM CDT) Narrative Performed At EXAMINATION:XR CHEST 1 VW PORTABLE [facility] CLINICAL HISTORY:chest pain tachycardia recent hx CABG COMPARISON:11/11/2014 IMPRESSION: Mild prominence of interstitial lung markings, compatible with mild vascular congestion. Right lung base atelectasis versus infiltrate. No effusions or pneumothorax. Cardiomediastinal silhouette is within normal limits. No acute osseous abnormalities. [facility]-[id number] Procedure Note Hm Interface, Radiology Results Incoming - 01/12/2018 12:01 AM CDT EXAMINATION: XR CHEST 1 VW PORTABLE CLINICAL HISTORY: chest pain tachycardia recent hx CABG COMPARISON: 11/11/2014 IMPRESSION: Mild prominence of interstitial lung markings, compatible with mild vascular congestion. Right lung base atelectasis versus infiltrate. No effusions or pneumothorax. Cardiomediastinal silhouette is within normal limits. No acute osseous abnormalities. [facility]-[id number] Performing Organization Address City/[facility]/Zipcode Phone Number [facility] [address] [place] [address] * B natriuretic peptide (01/11/2018 11:05 PM CDT) Only the most recent of 2 results within the time period is included. BNP 15 0 - 100 pg/mL [facility] DEPARTMENT OF PATHOLOGY AND GENOMIC MEDICINE Specimen Blood Performing Organization Address [facility] Phone Number [address] [place] [address] PATHOLOGY AND [facility] * Creatine kinase, total (CPK) (01/11/2018 11:05 PM CDT) Only the most recent of 2 results within the time period is included. Creatine kinase 120 39 - 308 U/L [facility] DEPARTMENT OF PATHOLOGY AND GENOMIC MEDICINE Specimen Plasma specimen Performing Organization Address [facility] Phone Number [address] [place] [address] PATHOLOGY AND [facility] MEDICINE * Basic metabolic panel (01/11/2018 11:05 PM CDT) Sodium 140 135 - 148 mEq/L [facility] DEPARTMENT OF PATHOLOGY AND GENOMIC MEDICINE Potassium 4.3 3.5 - 5.0 mEq/L [facility] DEPARTMENT OF PATHOLOGY AND GENOMIC MEDICINE Chloride 99 98 - 112 mEq/L [facility] DEPARTMENT OF PATHOLOGY AND GENOMIC MEDICINE CO2 25 24 - 31 mEq/L [facility] DEPARTMENT OF PATHOLOGY AND GENOMIC MEDICINE Anion gap 16@ANIO (H) 7 - 15 mEq/L [facility] DEPARTMENT OF PATHOLOGY AND GENOMIC MEDICINE BUN 17 6 - 20 mg/dL [facility] DEPARTMENT OF PATHOLOGY AND GENOMIC MEDICINE Creatinine 0.9 0.7 - 1.2 mg/dL [facility] DEPARTMENT OF PATHOLOGY AND GENOMIC MEDICINE Glucose 322 (H) 65 - 99 mg/dL [facility] DEPARTMENT OF PATHOLOGY AND GENOMIC MEDICINE Calcium 9.6 8.3 - 10.2 mg/dL [facility] DEPARTMENT OF PATHOLOGY AND GENOMIC MEDICINE Specimen Plasma specimen Performing Organization Address City/State/Zipcode Phone Number [facility] [place] [place] [address] [place] [address] PATHOLOGY AND GENOMIC MEDICINE * ECG ED [...] ED Physician in the absence of a out of town collection clerk: yes Interpretation: Interpretation: abnormal Rate: ECG rate:137 [...] [facility] Atrial rate 137 [facility] TX interval 130 [facility] QRSD interval 82 [facility] QT interval 364 [facility] QTC interval 549 [facility] P axis 1 78 [facility] QRS axis 1 52 [facility] T wave axis 60 [facility] EKG impression Sinus tachycardia-Nonspecific [facility] MUSE T wave abnormality-Abnormal ECG Incomplete right bundle branch block-In automated comparison with ECG of 12-DEC-2017 14:26,-No significant change was found- Performing Organization Address City/[facility] Phone Number [facility] MUSE [address] [place] [address] * Thyroid stimulating hormone (12/12/2017 7:35 AM CDT) TSH 1.83 0.27 - 4.20 uIU/mL [facility] DEPARTMENT OF PATHOLOGY AND GENOMIC MEDICINE Specimen Plasma specimen Performing Organization Address [facility] Phone Number [address] [place] [address] PATHOLOGY AND GENOMIC MEDICINE * Magnesium level (12/12/2017 7:35 AM CDT) Magnesium 1.8 1.6 - 2.6 mg/dL [facility] DEPARTMENT OF PATHOLOGY AND GENOMIC MEDICINE Specimen Plasma specimen Performing Organization Address [facility] Phone Number [address] [place] [address] PATHOLOGY AND GENOMIC MEDICINE * Hemoglobin A1c (12/12/2017 7:35 AM CDT) Hemoglobin A1C 9.0 (H) 4.0 - 6.0 % [facility] DEPARTMENT OF Comment: PATHOLOGY AND GENOMIC MEDICINE Less than 6% - Goal of therapy for Type II Diabetes Less than 7%-Goal of therapy for Type I Diabetes Less than 8%-Accepta ble control for Type I or Type II Diabetes Greater than 8%-Unacceptabl e control; action indicated. ([id number]) Specimen Blood Performing Organization Address [facility] Phone Number [facility] [address] [place] [address] [place] [address] PATHOLOGY AND GENOMIC MEDICINE * Lipid panel (12/12/2017 7:35 AM CDT) Cholesterol 174 <200 mg/dL [facility] DEPARTMENT OF PATHOLOGY AND GENOMIC MEDICINE Triglycerides 190 (H) <150 mg/dL [facility] DEPARTMENT OF PATHOLOGY AND GENOMIC MEDICINE HDL cholesterol 28 (L) >40 mg/dL [facility] DEPARTMENT OF PATHOLOGY AND GENOMIC MEDICINE LDL cholesterol 118 (H)Comment: Result <100 mg/dL [facility] obtained by direct LDL PATHOLOGY AND measurement GENOMIC MEDICINE Lipid panel SeeBelow [facility] DEPARTMENT OF interpretation Comment: PATHOLOGY AND Total [...] mg/dL) Specimen Plasma specimen Performing Organization Address [facility] Phone Number [facility] [place] [address] [place] [address] PATHOLOGY AND Reflektion MEDICINE * Echocardiogram complete w contrast and 3D if needed (12/11/2017 11:40 AM CDT) LA volume 37.0 cm3 [facility] LA Area d A4C 50 cm2 [facility] LA diam s 4.90 cm [facility] Aortic Root 3.24 cm [facility] TX End Hull Grad 3.48 [facility] TX End Diat Nelson 0.93 [facility] D [...] LV EF,BP 52.89 % [facility] [place],d A2C 8.14 cm [facility] [place],d A4C 7.96 cm [facility] [place],s A2C 7.57 cm [facility] [place],s A4C 6.93 cm [facility] LV,s 3.16 [...] [facility] AoV area i VTI BSA Garvin 1.11 cm2/m2 [facility] LV SI MOD BP BSA Garvin 19.48 ml/m2 [facility] LV Vol Index [...] Address City/State/Zipcode Phone Number [facility] [address] [place] [address] * CT Abdomen Pelvis W Contrast (12/10/2017 [...] appendectomy. 2.No pelvic mass, adenopathy, fluid collection. [facility]-[id number] Procedure Note Hm Interface, Radiology Results Incoming [...] 2. No pelvic mass, adenopathy, fluid collection. [facility]-[id number] Performing Organization Address City/State/Zipcode Phone Number [facility] [address] [place] [address] * CT Angiogram Pe Chest (12/10/2017 9:31 PM CDT) Narrative Performed At EXAMINATION:CT ANGIOGRAM PE CHEST [facility] CLINICAL HISTORY: recent surgery and right sided [...] No acute abnormality identified in the chest. [facility]-[id number] Procedure Note Interface, Radiology Results Incoming - [...] No acute abnormality identified in the chest. [facility]-[id number] Performing Organization Address [facility] Phone Number [facility] [address] [place] [address] * Partial thromboplastin time, activated (12/10/2017 9:27 PM CDT) PTT 31.3 23.0 - 36.0 sec [facility] DEPARTMENT OF Comment: PATHOLOGY AND PTT therapeutic range for [facility] MEDICINE unfractionated heparin is 61.0-112.0 seconds which corresponds to Anti-Xa 0.3-0.7 U/ml. Specimen Blood Performing Organization Address [facility] Phone Number [address] [place] [address] PATHOLOGY AND [facility] MEDICINE * Prothrombin time with INR (12/10/2017 9:27 PM CDT) Prothrombin time 13.8 12.0 - 15.0 sec [facility] DEPARTMENT OF PATHOLOGY AND GENOMIC MEDICINE INR 1.0 [facility] DEPARTMENT OF Comment: PATHOLOGY AND The International Normalized GENOMIC MEDICINE Ratio (INR) is a therapeutic monitoring tool for patients who are stable on oral anticoagulant therapy. An INR of 2.0-3.0 is suggested for deep vein thrombosis/pulmonary embolism. Specimen Blood Performing Organization Address [facility] Number [facility] DEPARTMENT [address] [place] [address] PATHOLOGY AND Reflektion MEDICINE * Insert peripheral IV (12/10/2017 7:44 [...] procedure well with no immediate complications after 06/19/2017 Insurance Payer Benefit Subscriber ID Type Phone Address Plan / Group [place] x[place]x [place] Advance Directives Patient has advance care planning documents on file. For more information, diann berrios contact: Jori Cramer [address] [facility] [place] [address]
[2018-06-20] MEDS: SODIUM CHLORIDE 0.9% 1000ML 1,000 ML IV SCH ×3 (04:12→19:19)
[2018-06-20] MEDS ORDERED: PROMETHAZINE 12.5MG/ NACL 0.9% 12.5 MG/50 ML BAG IV PRN (05:00)
[2018-06-20] MEDS: DIPHENHYDRAMINE HCL INJ 50 MG/ML VIAL IV PRN ×3 (06:00→14:03)
[2018-06-20] MEDS: HYDROMORPHONE 2MG/ML 2 MG/ML ML IV PRN ×4 (06:00→15:37)
[2018-06-20] MEDS: INSULIN LISPRO 100 UNIT/1 ML 3ML VIAL SQ SCH ×5 (07:30→20:40)
[2018-06-20 07:56] VITALS: BP 127/73
[2018-06-20 11:32] VITALS: BP 137/71
[2018-06-20 15:21] VITALS: BP 124/69
[2018-06-20 16:32] LABS: CREATINE KINASE MB 2.1 ng/mL (0-5.0)
[2018-06-20] MEDS: PANTOPRAZOLE SOD 40 MG TABEC PO SCH (16:51)
[2018-06-20] MEDS: METOPROLOL TARTRATE 50 MG TAB PO SCH (16:51)
--- NOTE | 2018-06-20 17:50 | Diagnostic Imaging Report ---
Exam: Lumbar spine MRI without contrast History: Back pain Comparison studies: Lumbar spine CT 06/20/2018 Technique: Sagittal and axial T2 , sagittal T1 and IR, axial spin density and coronal T2 Intravenous contrast: None Findings: Number of lumbar vertebral bodies: 5. Alignment: Normal lordosis. No scoliosis. Soft tissues: No T2 hyperintense inflammatory changes. Paraspinal muscles: No signal abnormalities. Well-preserved. No atrophic changes Lower thoracic cord: Normal in signal and morphology. The tip of the conus is at T12-L1 . Cauda equina: No masses. No arachnoiditis. Vertebrae: No acute compression fracture, infection or neoplasm. Mild chronic anterior wedging of the T12 and L1 vertebral bodies and mild height loss. Degenerative changes: Small shallow Schmorl's nodes along the endplates at T11-T12, T12-L1 and L1-L2. L1-L2: Mildly degenerated disc with mild loss of disc height and T2 disc signal. Patent canal and foramina. L2-L3: Mildly degenerated disc disc with mild loss of disc height and loss of T2 disc signal. Patent canal and foramina. L3-L4: Patent canal and foramina. L4-L5: Loss of T2 disc signal. Disc bulge with superimposed small disc protrusion results in minimal canal stenosis. Patent foramina. No nerve root impingement. L5-S1: Mildly degenerated disc with loss of disc height and loss of T2 disc signal. Symmetric disc bulge with superimposed 12 mm x 10 mm (TV X CC) central disc extrusion which extends laterally to the left subarticular zone abuts the left S1 nerve root. No significant canal or foraminal stenosis. Additional findings: T2 hyperintense 3.0 cm right superior pole renal cyst. IMPRESSION: 1. Mild multilevel disc degeneration. 2. L5-S1 disc extrusion abuts the left S1 nerve root. 3. Small L4-L5 disc protrusion result in minimal canal stenosis. Signed by: Dr. Rosalio Hirsch M.D. on 06/20/2018 5:47 PM
[2018-06-20] MEDS ORDERED: HYDROCODONE/APAP 7.5MG-325MG 1 EA TAB PO PRN (18:15)
[2018-06-20 20:45] VITALS: BP 120/76
[2018-06-21] VITALS (7 sets, daily range): BP systolic 94–140; BP diastolic 58–89
[2018-06-21] MEDS: DIPHENHYDRAMINE HCL 25 MG CAP PO PRN ×2 (00:06→21:13)
[2018-06-21] MEDS: SODIUM CHLORIDE 0.9% 1000ML 1,000 ML IV SCH ×3 (03:19→19:19)
[2018-06-21] MEDS: INSULIN LISPRO 100 UNIT/1 ML 3ML VIAL SQ SCH ×7 (07:30→21:20)
[2018-06-21] MEDS: METOPROLOL TARTRATE 50 MG TAB PO SCH ×2 (08:14→16:26)
[2018-06-21] MEDS: PANTOPRAZOLE SOD 40 MG TABEC PO SCH ×2 (08:15→16:26)
[2018-06-21] MEDS ORDERED: CLOPIDOGREL BISULFATE 75 MG TAB PO SCH (09:00)
[2018-06-21] MEDS ORDERED: LISINOPRIL 10 MG TAB PO SCH (09:00)
[2018-06-21] MEDS ORDERED: ASPIRIN 81 MG ENTERIC COATED PO SCH (09:00)
[2018-06-21] MEDS ORDERED: DULOXETINE HCL 30 MG DELAYED RELEASE PO SCH (09:00)
[2018-06-21] MEDS ORDERED: BACITRACIN 50,000 UNIT VIAL ONE (09:11)
[2018-06-21] MEDS ORDERED: GELATIN SPONGE 12-7MM ONE (09:11)
[2018-06-21] MEDS ORDERED: THROMBIN FOR SOLN 5,000 UNIT VIAL ONE (09:11)
[2018-06-21] MEDS ORDERED: BUPIVACAINE 0.5%/EPI 30 ML SDV INJ ONE ×2 (09:11→09:55)
[2018-06-21] MEDS: LACTATED RINGER'S 1,000 ML IV SCH ×2 (11:02→21:13)
[2018-06-21] MEDS ORDERED: ACETAMINOPHEN 325 MG TAB PO PRN (11:15)
[2018-06-21] MEDS ORDERED: ONDANSETRON HCL INJ 2 MG/ML VIAL IV PRN (11:15)
[2018-06-21] MEDS ORDERED: CARISOPRODOL 350 MG TAB PO PRN (11:15)
[2018-06-21] MEDS ORDERED: MAGNESIUM/ALUMINUM/SIMETHICONE 30 ML UDC PO PRN (11:15)
[2018-06-21] MEDS ORDERED: OXYCODONE/ACETAMINOPHEN 5-325 1 EACH TABLET PO PRN (11:15)
[2018-06-21] MEDS ORDERED: PROMETHAZINE HCL (IM) 25 MG/ML VIAL IM PRN (11:15)
[2018-06-21] MEDS ORDERED: PROMETHAZINE HCL (IM) 25 MG/ML VIAL ONE (11:16)
[2018-06-21] MEDS ORDERED: LIDOCAINE HCL (LTA) 4 ML SOLN ONE (11:40)
[2018-06-21] MEDS ORDERED: ACETAMINOPHEN 1000 MG/100 ML 100 ML IV ONE (11:40)
--- NOTE | 2018-06-21 12:27 | Consultation ---
DATE OF CONSULTATION: June 21, 2018 NEUROSURGICAL CONSULTATION PREOPERATIVE DIAGNOSIS: Severe low back pain and bilateral leg pain. 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 He now presents with a 2-week history of progressive low back pain which has become substantially worse over the past few days and radiates down both legs as far as the calves, worse on the left. He is unable to move in bed and stand and walk for the past couple of days. He was admitted to the hospital through the emergency room for pain management. An MRI of the lumbar spine was performed, which reveals an L4-5 disk bulge and an L5-S1 central and a left paracentral disk herniation. I was consulted. PHYSICAL EXAMINATION: The patient is in severe distress. He can barely move around in bed due to the exacerbation of his low back pain. Straight leg raising is positive on the left at 20 degrees and crossed straight leg raising is positive on the right at 30 degrees. There is severe bilateral lumbar paraspinal muscle spasm. Motor strength is preserved. Sensory testing reveals diminished sensation over the lateral aspect of the left foot compared to the right. Deep tendon reflexes are absent in both Achilles tendons and 1+ in both patellar tendons. Plantar responses are flexor. The patient could not stand to walk because of the exacerbation of his pain. MRI of the lumbar spine was reviewed. There is a central and left paracentral acute disk herniation compressing the left S1 nerve root and touching the right S1 nerve root. There is also a chronic central disk bulge at L4-5 which touches but does not significantly compress the L5 nerve roots bilaterally. IMPRESSION: Central and left paracentral L5-S1 disk herniation, symptomatic with severe bilateral radiculopathy, worse on the left. The patient is unable to ambulate. I have offered him surgery consisting of left L5-S1 laminotomy, medial facetectomy, and microsurgical diskectomy. I will not operate on the chronic L4-5 disk bulge at this time. The risks, benefits and alternatives to the surgery including physical therapy and epidural steroid injections were explained to the patient. The risks of infection, bleeding, CSF leakage, persistent pain, recurrent disk herniation, and numbness and weakness were explained to the patient. He fully understands all these issues and gives informed consent to proceed with surgery. Job#: [id number] EV
[2018-06-21] MEDS: CEFAZOLIN SOD 1 GM/D5W 50ML 50 ML IV SCH ×2 (13:43→21:13)
[2018-06-21] MEDS: HYDROMORPHONE 2MG/ML 2 MG/ML ML IV PRN ×3 (13:43→21:21)
--- NOTE | 2018-06-21 14:43 | Operative Report ---
DATE OF PROCEDURE: June 21, 2018 PREOPERATIVE DIAGNOSIS: Large central disk herniation at L5-S1 with bilateral radiculopathy, M51.17. POSTOPERATIVE DIAGNOSIS: Large central disk herniation at L5-S1 with bilateral radiculopathy, M51.17. PROCEDURES: Left L5-S1 laminotomy, medial facetectomy, and microsurgical diskectomy, 38504. ANESTHESIA: General. INDICATIONS: The patient is a man who presents with an acute central and left paracentral disk herniation at L5-S1 with bilateral S1 radiculopathy, worse on the left, unable to ambulate and in excruciating pain. He was taken to the operating room for microsurgical diskectomy. PROCEDURE: After the induction of general anesthesia, the patient was placed on the operating table in prone position over a Lamonte frame. The lumbar region was prepped and draped in sterile fashion. A preoperative x-ray was obtained. A small midline incision was created. The lumbar fascia was opened to the left of midline, and subperiosteal dissection was carried out to expose the L5 and S1 laminae and the medial aspect of the L5-S1 facet joint on the left side. A 2nd x-ray confirmed correct localization. The operating microscope was brought in. A high-speed drill equipped with a dereje bur was used to drill the inferior aspect of the lamina of L5 and the superior aspect of the lamina of S1 and the medial aspect of the L5-S1 facet joint on the left side. The ligamentum flavum was resected, and the dural sac and the S1 nerve root were exposed. The epidural veins lateral to the S1 nerve root were bipolar coagulated and divided with microscissors, and the S1 nerve root was slightly retracted medially. The herniated disk material immediately came into view. A ball probe was passed ventral to the nerve root and to the dural sac, and the extruded disk material was retrieved and grasped with a micropituitary rongeur and removed as a large fragment of disk. This achieved excellent decompression of the nerve root and the dural sac. The opening into the annulus of the disk was then enlarged with a number 11 blade. The loose contents of the L5-S1 disk and the subligamentous portion of the disk herniation were retrieved and removed with curettes and up-angled pituitary rongeurs. Excellent decompression was thus achieved. The wound was copiously irrigated with Bacitracin solution. Meticulous hemostasis was secured in spite of the fact that the patient had been on aspirin and Plavix. No unusual bleeding was encountered during this surgery. The wound was irrigated with Bacitracin solution and closed in multiple layers with 0 and 2-0 Vicryl sutures. The skin was closed with 3-0 Vicryl sutures in subcuticular fashion. Steri-Strips and a dressing were applied. The patient was awakened, extubated and taken to the postanesthesia care unit in stable condition. No intraoperative complications were encountered. Estimated blood loss was 10 mL. Job#: [id number] EV
[2018-06-21] MEDS ORDERED: LIDOCAINE HCL 2% LOCAL INJ 5 ML SDV VIAL INJ ONE (18:06)
[2018-06-21] MEDS ORDERED: FENTANYL CITRATE/PF 100MCG/2 ML INJ ONE (18:06)
[2018-06-21] MEDS ORDERED: PROPOFOL IV EMULSION 10 MG/ML 20 ML VIAL ONE (18:06)
[2018-06-21] MEDS ORDERED: MIDAZOLAM HCL 2 MG/2 ML VIAL ONE (18:06)
[2018-06-21] MEDS ORDERED: ROCURONIUM BROMIDE 10 MG/ML 5ML VIAL ONE (18:06)
[2018-06-21] MEDS ORDERED: ONDANSETRON HCL INJ 2 MG/ML VIAL ONE (18:06)
[2018-06-21] MEDS ORDERED: SEVOFLURANE INHAL SOLN 250 ML PEN BTL ONE (18:06)
[2018-06-21] MEDS ORDERED: DEXAMETHASONE SOD PHOS INJ 4 MG/ML VIAL ONE (18:06)
[2018-06-22] VITALS: BP 111/56
[2018-06-22] MEDS: HYDROMORPHONE 2MG/ML 2 MG/ML ML IV PRN (01:32)
[2018-06-22] MEDS: DIPHENHYDRAMINE HCL 25 MG CAP PO PRN (03:13)
[2018-06-22] MEDS: SODIUM CHLORIDE 0.9% 1000ML 1,000 ML IV SCH (03:19)
[2018-06-22 04:00] VITALS: BP 105/58
[2018-06-22] MEDS: LACTATED RINGER'S 1,000 ML IV SCH (05:09)
[2018-06-22] MEDS: CEFAZOLIN SOD 1 GM/D5W 50ML 50 ML IV SCH (05:10)
[2018-06-22] MEDS ORDERED: NORCO 7.5-3251 EACH PO (07:12)
[2018-06-22 07:30] VITALS: BP 119/81
[2018-06-22] MEDS: INSULIN LISPRO 100 UNIT/1 ML 3ML VIAL SQ SCH ×2 (07:30)
[2018-06-22] MEDS ORDERED: HYDROCODONE/APAP 7.5MG-325MG 1 EA TAB PO ONE (07:45)
== END 2018-06-22 08:35 | disposition home or self-care (01) ==
LOC: ER 22:40 → INTOOBSV 06-20 03:27 → ERHOLD 06-20 03:27 → IMCU 06-20 04:04
DX: M51.17 Intervertebral disc disorders with radiculopathy, lumbosacral region (principal); E11.9 Type 2 diabetes mellitus without complications; I25.10 Atherosclerotic heart disease of native coronary artery without angina pectoris; Z95.1 Presence of aortocoronary bypass graft; Z95.5 Presence of coronary angioplasty implant and graft; I25.2 Old myocardial infarction; Z83.3 Family history of diabetes mellitus; Z82.49 Family history of ischemic heart disease and other diseases of the circulatory system; Z88.5 Allergy status to narcotic agent; Z88.8 Allergy status to other drugs, medicaments and biological substances; Z79.4 Long term (current) use of insulin
CPT/HCPCS: 36415 ×3; 63047; 71045; 72020; 72132; 72148; 80053; 81001; 82550; 82553; 82948 ×3; 83605; 83735; 84443; 84484; 85025; 85610; 85730; 87040; 87086; 88304; 93005; 97116; 97162; 99284; G0378 ×3; G8978; G8979; J0131; J0690 ×2; J1100; J1170 ×3; J1200; J2001; J2250; J2405; J2550 ×2; J2704; J7030; J7120 ×2; Q9967; S0164 ×2

== ENCOUNTER 2018-09-15 22:31 | Inpatient (IN) | payer OTHER ==
[~2018-09-15] VITALS: Ht 180.3 cm; Wt 104.3 kg
[~2018-09-15 22:31] MED LIST changes: +BASAGLAR SC; +NORCO 7.5-3251 EACH PO; +PANTOPRAZOLE SO40 MG PO
--- OUTSIDE RECORDS SUMMARY | 2018-09-15 22:34 | XMS REPORT | Clinical Summary ---
Author Author TEJINDER [facility] Organization [facility] Address Unknown Phone Unavailable Care Team Providers Care Imaging Administrator Name Role Phone Sharpless PCP Allergies Comments [...] As per patient report he had an CT 4 years ago and had 2 stent [...] INFLUENZA VACCINE 04/09/2018 Results Not on fileafter 09/14/2017 Insurance Payer Benefit Subscriber ID Type Phone Address Plan / Group [facility] HMO/POS CARE POS SELECT CHOICE Advance Directives For more information, please contact: [facility] [address] [place] [address] Date Inactivated Comments Code Status Date Activated 07/31/2014 7:34 PM Full Code 07/29/2014 10:18 AM This code status was determined by: Patient 03/20/2014 8:37 PM Full Code 03/19/2014 4:48 AM This code status was determined by: Patient
--- OUTSIDE RECORDS SUMMARY | 2018-09-15 22:34 | XMS REPORT | Clinical Summary ---
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; High cholesterol; Type 1 diabetes mellitus without complication; Hx of CABG; Hypovolemia; SVT (supraventricular tachycardia) 01/11/2018 [facility] General Surgery - Encounter 01/16/2018 Kortney Garcia RN 12/12/2017 Patient Quality Outreach Felix Nielsen MD Teqwimuah, Remy, DO Al-Jessica, Maha, MD Chest pain, unspecified type (Primary Dx); Tachycardia; Shortness of breath; Syncope and collapse 12/10/2017 Emergency General Internal Medicine - 12/12/2017 after 09/14/2017 Social History Date Tobacco Use Types Packs/Day [...] DIABETIC FOOT EXAM 1987 URINE MICROALBUMIN 1987 INFLUENZA VACCINE 02/07/2018 Implants Device Identifier Shelf Expiration Date Model [...] PRELIMINARY Routine 01/11/2018 INTERPRETATION 10:40 PM CDT GA CRITICAL CARE, E/M Routine 01/11/2018 30-74 MINUTES [...] MMODE SPECTRAL 11:40 AM CDT COLOR DOPPLER ([id number]) POC GLUCOSE Routine 12/11/2017 10:16 AM CDT [...] 12-LEAD Routine 12/10/2017 7:17 PM CDT after 09/14/2017 Results * POC glucose (01/16/2018 4:41 PM CDT) Only the most recent of 28 results within the time period is included. POC glucose 214 (H) 65 - 99 mg/dL [facility] DEPARTMENT OF Comment: PATHOLOGY AND Meter ID: [id number] GENOMIC MEDICINE Basin Cleaner: Vinod Leiva Performing Organization Address [facility] Phone Number [address] [place] [address] PATHOLOGY AND GENOMIC MEDICINE * Cytology (non-gynecological) request (01/16/2018 9:33 AM CDT) [facility] DEPARTMENT OF PATHOLOGY AND GENOMIC MEDICINE Cytology See link below for PDF Lab [facility] DEPARTMENT OF (non-gynecological) Report PATHOLOGY AND report GENOMIC MEDICINE Result status This is Final Report to [facility] DEPARTMENT OF [id number] PATHOLOGY AND GENOMIC MEDICINE Performing Organization Address [facility] Phone Number [address] [place] [address] PATHOLOGY AND GENOMIC MEDICINE * Surgical pathology request (01/16/2018 9:29 AM CDT) Only the most recent of 2 results within the time period is included. [facility] DEPARTMENT OF PATHOLOGY AND GENOMIC MEDICINE Surgical pathology report See link below for PDF Lab [facility] DEPARTMENT OF Report PATHOLOGY AND GENOMIC MEDICINE Result status This is Supplemental Report to [facility] DEPARTMENT OF [id number] PATHOLOGY AND GENOMIC MEDICINE Performing Organization Address City/State/Zipcode [place] [address] [place] [address] PATHOLOGY AND GENOMIC MEDICINE * CT Abdomen [...] No acute findings. No evidence of diverticulitis. [facility]-[id number] Procedure Note Interface, Radiology Results Incoming - 01/15/2018 1:03 [...] No acute findings. No evidence of diverticulitis. [facility]-[id number] Performing Organization Address City/State/Zipcode Phone Number JOSE [address] [place] [address] * Estimated GFR (01/14/2018 2:45 PM CDT) Only the most recent of 3 results within the time period is included. GFR Non Af Amer >90 mL/min/1.73 m2 [facility] DEPARTMENT OF PATHOLOGY AND GENOMIC MEDICINE GFR Af Amer >90 mL/min/1.73 m2 [facility] DEPARTMENT OF Comment: PATHOLOGY AND Chronic kidney [...] specimen Performing Organization Address City/State/Zipcode Phone Number [address] [place] [address] PATHOLOGY AND GENOMIC MEDICINE * CBC with platelet and differential (01/14/2018 2:45 PM CDT) Only the most recent of 3 results within the time period is included. WBC 8.40 4.50 - 11.00 k/uL [facility] DEPARTMENT OF PATHOLOGY AND GENOMIC MEDICINE RBC 5.51 4.40 - 6.00 m/uL [facility] DEPARTMENT OF PATHOLOGY AND GENOMIC MEDICINE HGB 14.9 14.0 - 18.0 g/dL [facility] DEPARTMENT OF PATHOLOGY AND GENOMIC MEDICINE HCT 46.1 41.0 - 51.0 % [facility] DEPARTMENT OF PATHOLOGY AND GENOMIC MEDICINE MCV 83.7 82.0 - 100.0 fL [facility] DEPARTMENT OF PATHOLOGY AND GENOMIC MEDICINE MCH 27.0 27.0 - 34.0 pg [facility] DEPARTMENT OF PATHOLOGY AND GENOMIC MEDICINE MCHC 32.3 31.0 - 37.0 g/dL [facility] DEPARTMENT OF PATHOLOGY AND GENOMIC MEDICINE RDW - SD 37.9 37.0 - 55.0 fL [facility] DEPARTMENT OF PATHOLOGY AND GENOMIC MEDICINE MPV 10.0 8.8 - 13.2 fL [facility] DEPARTMENT OF PATHOLOGY AND GENOMIC MEDICINE Platelet count 268 150 - 400 k/uL [facility] DEPARTMENT OF PATHOLOGY AND GENOMIC MEDICINE Nucleated RBC 0.00 /100 WBC [facility] DEPARTMENT OF PATHOLOGY AND GENOMIC MEDICINE Neutrophils 72.6 (H) 39.0 - 69.0 % [facility] DEPARTMENT OF PATHOLOGY AND GENOMIC MEDICINE Lymphocytes 18.5 (L) 25.0 - 45.0 % [facility] DEPARTMENT OF PATHOLOGY AND GENOMIC MEDICINE Monocytes 5.6 0.0 - 10.0 % [facility] DEPARTMENT OF PATHOLOGY AND GENOMIC MEDICINE Eosinophils 2.4 0.0 - 5.0 % [facility] PATHOLOGY AND GENOMIC MEDICINE Basophils 0.7 0.0 - 1.0 % [facility] DEPARTMENT OF PATHOLOGY AND GENOMIC MEDICINE Specimen Blood Performing Organization Address [facility] [place] Phone Number [address] [place] [address] PATHOLOGY [facility] * Lipase level (01/14/2018 2:45 PM CDT) Only the most recent of 2 results within the time period is included. Lipase 21 13 - 60 U/L [facility] DEPARTMENT OF PATHOLOGY AND GENOMIC MEDICINE Specimen Plasma specimen Performing Organization Address [facility] [place] Phone Number [address] [place] [address] PATHOLOGY [facility] * Amylase level (01/14/2018 2:45 PM CDT) Amylase 34 13 - 73 U/L [facility] DEPARTMENT OF PATHOLOGY AND GENOMIC MEDICINE Specimen Plasma specimen Performing Organization Address City/[facility] Phone Number [address] [place] [address] PATHOLOGY AND GENOMIC MEDICINE * Comprehensive metabolic panel (01/14/2018 2:45 PM CDT) Only the most recent of 2 results within the time period is included. Sodium 139 135 - 148 mEq/L [facility] DEPARTMENT OF PATHOLOGY AND GENOMIC MEDICINE Potassium 4.1 3.5 - 5.0 mEq/L [facility] DEPARTMENT OF PATHOLOGY AND GENOMIC MEDICINE Chloride 100 98 - 112 mEq/L [facility] DEPARTMENT OF PATHOLOGY AND GENOMIC MEDICINE CO2 25 24 - 31 mEq/L [facility] DEPARTMENT OF PATHOLOGY AND GENOMIC MEDICINE Anion gap 14@ANIO 7 - 15 mEq/L [facility] DEPARTMENT OF PATHOLOGY AND GENOMIC MEDICINE BUN 20 6 - 20 mg/dL [facility] DEPARTMENT OF PATHOLOGY AND GENOMIC MEDICINE Creatinine 0.7 0.7 - 1.2 mg/dL [facility] DEPARTMENT OF PATHOLOGY AND GENOMIC MEDICINE Glucose 235 (H) 65 - 99 mg/dL [facility] DEPARTMENT OF PATHOLOGY AND GENOMIC MEDICINE Calcium 9.4 8.3 - 10.2 mg/dL [facility] DEPARTMENT OF PATHOLOGY AND GENOMIC MEDICINE Protein 6.8 6.3 - 8.3 g/dL [facility] DEPARTMENT OF Comment: PATHOLOGY AND GENOMIC MEDICINE 4.6-7.0 g/dL 1 week 4.4-7.6 g/dL 7 months-1year 5.1-7.3 g/dL 1-2 years5.6-7 .5 g/dL >3 years6.0-8 .0 g/dL 18-150 6.3-8.3 g/dL Albumin 4.0 3.5 - 5.0 g/dL [facility] DEPARTMENT OF PATHOLOGY AND GENOMIC MEDICINE A/G ratio 1.4 0.7 - 3.8 [facility] DEPARTMENT OF PATHOLOGY AND GENOMIC MEDICINE Alkaline phosphatase 97 40 - 129 U/L [facility] DEPARTMENT OF PATHOLOGY AND GENOMIC MEDICINE AST 15 10 - 50 U/L [facility] DEPARTMENT OF PATHOLOGY AND GENOMIC MEDICINE ALT 16 5 - 50 U/L [facility] DEPARTMENT OF PATHOLOGY AND GENOMIC MEDICINE Total bilirubin 0.5 0.0 - 1.2 mg/dL [facility] DEPARTMENT OF PATHOLOGY AND GENOMIC MEDICINE Specimen Plasma specimen Performing Organization Address City/State/Zipcode Phone Number [facility] [place] [address] [place] [address] PATHOLOGY AND GENOMIC MEDICINE * D-dimer (01/12/2018 8:52 AM CDT) D-dimer 0.53 (H) 0.00 - 0.40 ug/mL FEU [facility] DEPARTMENT OF Comment: PATHOLOGY AND Units are [...] and malignancies. Specimen Blood Performing Organization Address City/[facility] Phone Number [facility] [place] [id number] [place] [address] [place] [address] PATHOLOGY AND GENOMIC MEDICINE * Troponin (01/12/2018 7:52 AM CDT) Only the most recent of 5 results within the time period is included. Troponin <0.300 0.000 - 0.300 ng/mL [facility] DEPARTMENT OF Comment: PATHOLOGY AND 0.30 - 1.49 GENOMIC MEDICINE ng/mlMay indicate increased risk of acute coronary syndrome. >=1.5 ng/ml Consistent with acute myocardial infarction. The diagnostic value of a single normal or non-diagnostic result is questionable.Serial samples at 2-6 hour intervals are required to rule out acute myocardial injury. Specimen Plasma specimen Performing Organization Address City/[facility]/Zipcode Phone Number [facility] DEPARTMENT OF [address] [place] [address] [place] [phone] PATHOLOGY AND [facility] MEDICINE * XR Chest 1 Vw Portable (01/11/2018 11:18 PM CDT) Narrative Performed At EXAMINATION:XR CHEST 1 VW PORTABLE [facility] CLINICAL HISTORY:chest pain tachycardia recent hx CABG COMPARISON:11/11/2014 IMPRESSION: Mild prominence of interstitial lung markings, compatible with mild vascular congestion. Right lung base atelectasis versus infiltrate. No effusions or pneumothorax. Cardiomediastinal silhouette is within normal limits. No acute osseous abnormalities. [facility]-[id number] Procedure Note Interface, Radiology Results Incoming - 01/12/2018 12:01 AM CDT EXAMINATION: XR CHEST 1 VW PORTABLE CLINICAL HISTORY: chest pain tachycardia recent hx CABG COMPARISON: 11/11/2014 IMPRESSION: Mild prominence of interstitial lung markings, compatible with mild vascular congestion. Right lung base atelectasis versus infiltrate. No effusions or pneumothorax. Cardiomediastinal silhouette is within normal limits. No acute osseous abnormalities. [facility]-[id number] Performing Organization Address City/[facility]/Zipcode Phone Number [facility] [address] [place] [address] * B natriuretic peptide (01/11/2018 11:05 PM CDT) Only the most recent of 2 results within the time period is included. BNP 15 0 - 100 pg/mL [facility] DEPARTMENT OF PATHOLOGY AND GENOMIC MEDICINE Specimen Blood Performing Organization Address [facility] [place] Phone Number [address] [place] [address] PATHOLOGY AND GENOMIC MEDICINE * Creatine kinase, total (CPK) (01/11/2018 11:05 PM CDT) Only the most recent of 2 results within the time period is included. Creatine kinase 120 39 - 308 U/L [facility] DEPARTMENT OF PATHOLOGY AND GENOMIC MEDICINE Specimen Plasma specimen Performing Organization Address [facility] Phone Number [address] [place] [address] PATHOLOGY AND [facility] MEDICINE * Basic metabolic panel (01/11/2018 11:05 PM CDT) Sodium 140 135 - 148 mEq/L [facility] DEPARTMENT OF PATHOLOGY AND GENOMIC MEDICINE Potassium 4.3 3.5 - 5.0 mEq/L [facility] DEPARTMENT OF PATHOLOGY AND GENOMIC MEDICINE Chloride 99 98 - 112 mEq/L [facility] DEPARTMENT OF PATHOLOGY AND GENOMIC MEDICINE CO2 25 24 - 31 mEq/L [facility] DEPARTMENT OF PATHOLOGY AND GENOMIC MEDICINE Anion gap 16@ANIO (H) 7 - 15 mEq/L [facility] DEPARTMENT OF PATHOLOGY AND GENOMIC MEDICINE BUN 17 6 - 20 mg/dL [facility] DEPARTMENT OF PATHOLOGY AND GENOMIC MEDICINE Creatinine 0.9 0.7 - 1.2 mg/dL [facility] DEPARTMENT OF PATHOLOGY AND GENOMIC MEDICINE Glucose 322 (H) 65 - 99 mg/dL [facility] DEPARTMENT OF PATHOLOGY AND GENOMIC MEDICINE Calcium 9.6 8.3 - 10.2 mg/dL [facility] DEPARTMENT OF PATHOLOGY AND GENOMIC MEDICINE Specimen Plasma specimen Performing Organization Address City/State/Zipcode Phone Number [facility] [place] [address] [place] [address] PATHOLOGY AND GENOMIC MEDICINE * ECG ED [...] ED Physician in the absence of a pump house technician: yes Interpretation: Interpretation: abnormal Rate: ECG rate:137 [...] [facility] Atrial rate 137 [facility] GA interval 130 [facility] QRSD interval 82 [facility] QT interval 364 [facility] MUSE QTC interval 549 [facility] MUSE P axis 1 78 HM MUSE QRS axis 1 52 [facility] MUSE T wave axis 60 [facility] MUSE EKG impression Sinus tachycardia-Nonspecific [facility] MUSE T wave abnormality-Abnormal ECG Incomplete right bundle branch block-In automated comparison with ECG of 12-DEC-2017 14:26,-No significant change was found- Performing Organization Address [facility] Phone Number [facility] MUSE [address] [place] [address] * Thyroid stimulating hormone (12/12/2017 7:35 AM CDT) TSH 1.83 0.27 - 4.20 uIU/mL [facility] DEPARTMENT OF PATHOLOGY AND GENOMIC MEDICINE Specimen Plasma specimen Performing Organization Address [facility] Phone Number [address] [place] [address] PATHOLOGY AND GENOMIC MEDICINE * Magnesium level (12/12/2017 7:35 AM CDT) Magnesium 1.8 1.6 - 2.6 mg/dL [facility] DEPARTMENT OF PATHOLOGY AND GENOMIC MEDICINE Specimen Plasma specimen Performing Organization Address [facility] Number [address] [place] [address] PATHOLOGY AND GENOMIC MEDICINE * Hemoglobin A1c (12/12/2017 7:35 AM CDT) Hemoglobin A1C 9.0 (H) 4.0 - 6.0 % [facility] DEPARTMENT OF Comment: PATHOLOGY AND GENOMIC MEDICINE Less than 6% - Goal of therapy for Type II Diabetes Less than 7%-Goal of therapy for Type I Diabetes Less than 8%-Accepta ble control for Type I or Type II Diabetes Greater than 8%-Unacceptabl e control; action indicated. ([id number]) Specimen Blood Performing Organization Address [facility] Phone Number [address] [place] [address] PATHOLOGY AND GENOMIC MEDICINE * Lipid panel (12/12/2017 7:35 AM CDT) Cholesterol 174 <200 mg/dL [facility] DEPARTMENT OF PATHOLOGY AND GENOMIC MEDICINE Triglycerides 190 (H) <150 mg/dL [facility] DEPARTMENT OF PATHOLOGY AND GENOMIC MEDICINE HDL cholesterol 28 (L) >40 mg/dL [facility] DEPARTMENT OF PATHOLOGY AND GENOMIC MEDICINE LDL cholesterol 118 (H)Comment: Result <100 mg/dL [facility] DEPARTMENT obtained by direct LDL PATHOLOGY AND measurement [facility] MEDICINE Lipid panel SeeBelow [facility] DEPARTMENT OF interpretation Comment: PATHOLOGY AND Total [...] specimen Performing Organization Address City/State/Zipcode Phone Number [facility] [place] [address] [place] [address] PATHOLOGY AND GENOMIC MEDICINE * Echocardiogram complete w contrast and 3D if needed (12/11/2017 11:40 AM CDT) LA volume 37.0 cm3 [facility] LA Area d A4C 50 cm2 [facility] LA diam s 4.90 cm [facility] Aortic Root 3.24 cm [facility] GA End Hull Grad 3.48 [facility] GA End Diat Nelson 0.93 [facility] D [...] LV EF,BP 52.89 % [facility] Torito Tolono,d A2C 8.14 cm [facility] Torito Tolono,d A4C 7.96 cm [facility] Torito Tolono,s A2C 7.57 cm [facility] Torito Tolono,s A4C 6.93 cm [facility] LV,s 3.16 [...] [facility] AoV area i VTI BSA Sachse 1.11 cm2/m2 [facility] LV SI MOD BP BSA Sachse 19.48 ml/m2 [facility] LV Vol Index [...] filling. Performing Organization Address City/State/Zipcode Phone Number [facility] [address] [place] [address] * CT Abdomen Pelvis W Contrast (12/10/2017 [...] appendectomy. 2.No pelvic mass, adenopathy, fluid collection. [facility]-[id number] Procedure Note Interface, Radiology Results [facility] - 12/10/2017 9:41 PM CDT EXAMINATION: CT [...] 2. No pelvic mass, adenopathy, fluid collection. [facility]-[id number] Performing Organization Address City/State/Zipcode Phone Number [facility] [address] [place] [address] * CT Angiogram Pe Chest (12/10/2017 9:31 [...] No acute abnormality identified in the chest. [facility]-[id number] Procedure Note Interface, Radiology Results Incoming - [...] No acute abnormality identified in the chest. [facility]-[id number] Performing Organization Address [facility] Phone Number [facility] [address] [place] [address] * Partial thromboplastin time, activated (12/10/2017 9:27 PM CDT) PTT 31.3 23.0 - 36.0 sec [facility] DE[facility] OF Comment: PATHOLOGY AND PTT therapeutic range for [facility] MEDICINE unfractionated heparin is 61.0-112.0 seconds which corresponds to Anti-Xa 0.3-0.7 U/ml. Specimen Blood Performing Organization Address [facility] Phone Number [address] [place] [address] PATHOLOGY AND [facility] MEDICINE * Prothrombin time with INR (12/10/2017 9:27 PM CDT) Prothrombin time 13.8 12.0 - 15.0 sec [facility] DEPARTMENT OF PATHOLOGY AND GENOMIC MEDICINE INR 1.0 [facility] DEPARTMENT OF Comment: PATHOLOGY AND The International Normalized [facility] Ratio (INR) is a therapeutic monitoring tool for patients who are stable on oral anticoagulant therapy. An INR of 2.0-3.0 is suggested for deep vein thrombosis/pulmonary embolism. Specimen Blood Performing Organization Address [facility] Phone Number [address] [place] [phone] PATHOLOGY AND [facility] MEDICINE * Insert peripheral IV (12/10/2017 7:44 [...] procedure well with no immediate complications after 09/14/2017 Insurance Payer Benefit Subscriber ID Type Phone Address Plan / Group [employer] x[employer]x [employer] Advance Directives Patient has advance care planning documents on file. For more information, diann berrios contact: Jori Cramer [address] [place] [address]
--- NOTE | 2018-09-15 23:50 | Diagnostic Imaging Report ---
EXAMINATION: CXR 2 VIEW - HOPD INDICATION: Shortness of breath, chest pain COMPARISON: Chest x-ray 06/20/2018 FINDINGS: PA and lateral views TUBES and LINES: None. LUNGS: Lungs are not well inflated. There is no evidence of pneumonia or pulmonary edema. PLEURA: No pleural effusion or pneumothorax. HEART AND MEDIASTINUM: The cardiomediastinal silhouette is unremarkable. BONES AND SOFT TISSUES: No acute osseous lesion. Median sternotomy wires. Soft tissues are unremarkable. UPPER ABDOMEN: No free air under the diaphragm. IMPRESSION: No acute thoracic abnormality. Signed by: DR. Alexi Pablo MD on 09/15/2018 11:47 PM
[2018-09-16] MEDS ORDERED: LEVOFLOXACIN 750MG/D5W 150ML 150 ML IV ONE (00:15)
[2018-09-16] MEDS ORDERED: INSULIN REGULAR, HUMAN 100 UNIT/1 ML 3ML VIAL SQ ONE (00:45)
[2018-09-16] MEDS ORDERED: SODIUM CHLORIDE 0.9% 1000 ML BAG IV ONE (01:00)
[2018-09-16] MEDS ORDERED: DEXTROSE 50% SYRINGE 50 ML IV PRN (01:00)
[2018-09-16] MEDS ORDERED: LEVOFLOXACIN 750MG/D5W 150ML IV SCH (01:00)
[2018-09-16] MEDS ORDERED: ASPIRIN 81 MG CHEW TAB PO ONE (01:00)
[2018-09-16] MEDS ORDERED: ACETAMINOPHEN/CODEINE 300MG - 30MG TAB PO PRN (01:15)
[2018-09-16] MEDS ORDERED: LORAZEPAM INJ 2 MG/ML VIAL IV STA (01:22)
[2018-09-16] MEDS: SODIUM CHLORIDE 0.9% 1000ML 1,000 ML IV SCH ×3 (02:00→18:19)
--- NOTE | 2018-09-16 03:20 | NUR ---
PATIENT ASKED WHY HE KEEPS MOANING, INSISTS THAT THE PAIN IN HIS CHEST IS BECOMING INTOLERABLE, DR. LEDEZMA TOLD HIM THERES NOT A LOT OF MEDS WE CAN GIVE FOR HIS PAIN, PT ALSO STATED CHRONIC BACK PAIN IS WORSE WELL, BC HAVING TO WAIT ON OUR STRETCHERS UNTIL MOVED OVER TO HOSPITAL FOR ADMIT.
[2018-09-16] MEDS ORDERED: MORPHINE SULFATE 2 MG/ML SYR 1ML IV STA ×3 (03:30→08:14)
[2018-09-16] MEDS ORDERED: DIPHENHYDRAMINE HCL INJ 50 MG/ML VIAL IV ONE (03:30)
[2018-09-16] MEDS: INSULIN REGULAR, HUMAN 100 UNIT/1 ML 3ML VIAL SQ SCH ×4 (04:00→20:05)
--- OUTSIDE RECORDS SUMMARY | 2018-09-16 04:11 | XMS REPORT | Clinical Summary ---
Author Author [employer] Address Unknown Phone Unavailable Care Team Providers Care Associate Medical Director Name Role Phone Mariano Novak MD PCP [...] tachycardia (Primary Dx); Coronary artery disease of [place] artery of [place] heart with stable angina pectoris; High cholesterol; Type 1 diabetes mellitus without complication; Hx of CABG; Hypovolemia; SVT (supraventricular tachycardia) 01/11/2018 [facility] General Surgery - Encounter 01/16/2018 Kortney Garcia RN 12/12/2017 Patient Quality Outreach Felix Nielsen MD Teqwimuah, Remy, DO Al-Jessica, Maha, MD Chest pain, unspecified type (Primary Dx); Tachycardia; Shortness of breath; Syncope and collapse 12/10/2017 Emergency General Internal Medicine - 12/12/2017 after 09/15/2017 Social History Date Tobacco Use Types Packs/Day [...] PRELIMINARY Routine 01/11/2018 INTERPRETATION 10:40 PM CDT [facility], E/M Routine 01/11/2018 30-74 MINUTES [...] MMODE SPECTRAL 11:40 AM CDT COLOR DOPPLER (17621) POC GLUCOSE Routine 12/11/2017 10:16 AM CDT [...] 12-LEAD Routine 12/10/2017 7:17 PM CDT after 09/15/2017 Results * POC glucose (01/16/2018 4:41 PM CDT) Only the most recent of 28 results within the time period is included. POC glucose 214 (H) 65 - 99 mg/dL [facility] [[email or web address]] DEPARTMENT OF Comment: PATHOLOGY AND Meter ID: [id number] GENOMIC MEDICINE Tank Tester: Vinod Leiva Performing Organization Address [facility] Phone Number [address] [place] [address] PATHOLOGY AND GENOMIC MEDICINE * Cytology (non-gynecological) request (01/16/2018 9:33 AM CDT) [facility] [[email or web address]] DEPARTMENT OF PATHOLOGY AND GENOMIC MEDICINE Cytology See link below for PDF Lab [facility] [[email or web address]] DEPARTMENT OF (non-gynecological) Report PATHOLOGY AND report GENOMIC MEDICINE Result status This is Final Report to [facility] [[email or web address]] DEPARTMENT OF [id number] PATHOLOGY AND GENOMIC MEDICINE Performing Organization Address [facility] Phone Number [address] [place] [address] PATHOLOGY AND GENOMIC MEDICINE * Surgical pathology request (01/16/2018 9:29 AM CDT) Only the most recent of 2 results within the time period is included. [facility] [[email or web address]] DEPARTMENT OF PATHOLOGY AND GENOMIC MEDICINE Surgical pathology report See link below for PDF Lab [facility] [[email or web address]] DEPARTMENT OF Report PATHOLOGY AND GENOMIC MEDICINE Result status This is Supplemental Report to [facility] [[email or web address]] DEPARTMENT OF [id number] PATHOLOGY AND GENOMIC MEDICINE Performing Organization Address City/State/Zipcode [place] [address] [place] [address] PATHOLOGY AND GENOMIC MEDICINE * CT Abdomen [...] No acute findings. No evidence of diverticulitis. [facility]-[id number] Procedure Note Interface, Radiology Results Incoming - [...] No acute findings. No evidence of diverticulitis. [facility]-[id number] Performing Organization Address City/State/Zipcode Phone Number JO[facility] [address] [place] [address] * Estimated GFR (01/14/2018 2:45 PM CDT) Only the most recent of 3 results within the time period is included. GFR Non Af Amer >90 mL/min/1.73 m2 [facility] [[email or web address]] DEPARTMENT OF PATHOLOGY AND GENOMIC MEDICINE GFR Af Amer >90 mL/min/1.73 m2 [facility] [[email or web address]] DEPARTMENT OF Comment: PATHOLOGY AND Chronic kidney [...] specimen Performing Organization Address City/State/Zipcode Phone Number [address] [place] [address] PATHOLOGY AND GENOMIC MEDICINE * CBC with platelet and differential (01/14/2018 2:45 PM CDT) Only the most recent of 3 results within the time period is included. WBC 8.40 4.50 - 11.00 k/uL [facility] [[email or web address]] DEPARTMENT OF PATHOLOGY AND GENOMIC MEDICINE RBC 5.51 4.40 - 6.00 m/uL [facility] [[email or web address]] DEPARTMENT OF PATHOLOGY AND GENOMIC MEDICINE HGB 14.9 14.0 - 18.0 g/dL [facility] [[email or web address]] DEPARTMENT OF PATHOLOGY AND GENOMIC MEDICINE HCT 46.1 41.0 - 51.0 % [facility] [[email or web address]] DEPARTMENT OF PATHOLOGY AND GENOMIC MEDICINE MCV 83.7 82.0 - 100.0 fL [facility] [[email or web address]] DEPARTMENT OF PATHOLOGY AND GENOMIC MEDICINE MCH 27.0 27.0 - 34.0 pg [facility] [[email or web address]] DEPARTMENT OF PATHOLOGY AND GENOMIC MEDICINE MCHC 32.3 31.0 - 37.0 g/dL [facility] [[email or web address]] DEPARTMENT OF PATHOLOGY AND GENOMIC MEDICINE RDW - SD 37.9 37.0 - 55.0 fL [facility] [[email or web address]] DEPARTMENT OF PATHOLOGY AND GENOMIC MEDICINE MPV 10.0 8.8 - 13.2 fL [facility] [[email or web address]] DEPARTMENT OF PATHOLOGY AND GENOMIC MEDICINE Platelet count 268 150 - 400 k/uL [facility] [[email or web address]] DEPARTMENT OF PATHOLOGY AND GENOMIC MEDICINE Nucleated RBC 0.00 /100 WBC [facility] [[email or web address]] DEPARTMENT OF PATHOLOGY AND GENOMIC MEDICINE Neutrophils 72.6 (H) 39.0 - 69.0 % [facility] [[email or web address]] DEPARTMENT OF PATHOLOGY AND GENOMIC MEDICINE Lymphocytes 18.5 (L) 25.0 - 45.0 % [facility] [[email or web address]] DEPARTMENT OF PATHOLOGY AND GENOMIC MEDICINE Monocytes 5.6 0.0 - 10.0 % [facility] [[email or web address]] DEPARTMENT OF PATHOLOGY AND GENOMIC MEDICINE Eosinophils 2.4 0.0 - 5.0 % [facility] PATHOLOGY AND GENOMIC MEDICINE Basophils 0.7 0.0 - 1.0 % [facility] [[email or web address]] DEPARTMENT OF PATHOLOGY AND GENOMIC MEDICINE Specimen Blood Performing Organization Address [facility] Phone Number [address] [place] [address] PATHOLOGY [facility] * Lipase level (01/14/2018 2:45 PM CDT) Only the most recent of 2 results within the time period is included. Lipase 21 13 - 60 U/L [facility] [[email or web address]] DEPARTMENT OF PATHOLOGY AND GENOMIC MEDICINE Specimen Plasma specimen Performing Organization Address [facility] Phone Number [address] [place] [address] PATHOLOGY [facility] * Amylase level (01/14/2018 2:45 PM CDT) Amylase 34 13 - 73 U/L [facility] [[email or web address]] DEPARTMENT OF PATHOLOGY AND GENOMIC MEDICINE Specimen Plasma specimen Performing Organization Address City/[facility] Phone Number [address] [place] [address] PATHOLOGY AND GENOMIC MEDICINE * Comprehensive metabolic panel (01/14/2018 2:45 PM CDT) Only the most recent of 2 results within the time period is included. Sodium 139 135 - 148 mEq/L [facility] [[email or web address]] DEPARTMENT OF PATHOLOGY AND GENOMIC MEDICINE Potassium 4.1 3.5 - 5.0 mEq/L [facility] [[email or web address]] DEPARTMENT OF PATHOLOGY AND GENOMIC MEDICINE Chloride 100 98 - 112 mEq/L [facility] [[email or web address]] DEPARTMENT OF PATHOLOGY AND GENOMIC MEDICINE CO2 25 24 - 31 mEq/L [facility] [[email or web address] DEPARTMENT OF PATHOLOGY AND GENOMIC MEDICINE Anion gap 14@ANIO 7 - 15 mEq/L [facility] [[email or web address]] DEPARTMENT OF PATHOLOGY AND GENOMIC MEDICINE BUN 20 6 - 20 mg/dL [facility] [[email or web address]] DEPARTMENT OF PATHOLOGY AND GENOMIC MEDICINE Creatinine 0.7 0.7 - 1.2 mg/dL [facility] [[email or web address]] DEPARTMENT OF PATHOLOGY AND GENOMIC MEDICINE Glucose 235 (H) 65 - 99 mg/dL [facility] [[email or web address]] DEPARTMENT OF PATHOLOGY AND GENOMIC MEDICINE Calcium 9.4 8.3 - 10.2 mg/dL [facility] [[email or web address]] DEPARTMENT OF PATHOLOGY AND GENOMIC MEDICINE Protein 6.8 6.3 - 8.3 g/dL [facility] [[email or web address]] DEPARTMENT OF Comment: PATHOLOGY AND GENOMIC MEDICINE 4.6-7.0 g/dL 1 week 4.4-7.6 g/dL 7 months-1year 5.1-7.3 g/dL 1-2 years5.6-7 .5 g/dL >3 years6.0-8 .0 g/dL 18-150 6.3-8.3 g/dL Albumin 4.0 3.5 - 5.0 g/dL [facility] [[email or web address]] DEPARTMENT OF PATHOLOGY AND GENOMIC MEDICINE A/G ratio 1.4 0.7 - 3.8 [facility] [[email or web address]] DEPARTMENT OF PATHOLOGY AND GENOMIC MEDICINE Alkaline phosphatase 97 40 - 129 U/L [facility] [[email or web address]] DEPARTMENT OF PATHOLOGY AND GENOMIC MEDICINE AST 15 10 - 50 U/L [facility] [[email or web address]] DEPARTMENT OF PATHOLOGY AND GENOMIC MEDICINE ALT 16 5 - 50 U/L [facility] [[email or web address]] DEPARTMENT OF PATHOLOGY AND GENOMIC MEDICINE Total bilirubin 0.5 0.0 - 1.2 mg/dL [facility] [[email or web address]] DEPARTMENT OF PATHOLOGY AND GENOMIC MEDICINE Specimen Plasma specimen Performing Organization Address City/State/Zipcode Phone Number [facility] [place] [place] [address] [place] [address] PATHOLOGY AND GENOMIC MEDICINE * D-dimer (01/12/2018 8:52 AM CDT) D-dimer 0.53 (H) 0.00 - 0.40 ug/mL FEU [facility] [[email or web address]] DEPARTMENT OF Comment: PATHOLOGY AND Units are [...] Organization Address City/[facility] Phone Number [facility] [place] [id number] [place] [address] [place] [address] PATHOLOGY AND GENOMIC MEDICINE * Troponin (01/12/2018 7:52 AM CDT) Only the most recent of 5 results within the time period is included. Troponin <0.300 0.000 - 0.300 ng/mL [facility] [[email or web address]] DEPARTMENT OF Comment: PATHOLOGY AND 0.30 - [...] [facility]/Zipcode Phone Number [facility] [[email or web address]] DEPARTMENT OF [address] [place] [address] [place] [id number] PATHOLOGY AND [employer] MEDICINE * XR Chest 1 Vw Portable (01/11/2018 11:18 PM CDT) Narrative Performed At EXAMINATION:XR CHEST 1 VW PORTABLE [facility] CLINICAL HISTORY:chest pain tachycardia recent hx CABG COMPARISON:11/11/2014 IMPRESSION: Mild prominence of interstitial lung markings, compatible with mild vascular congestion. Right lung base atelectasis versus infiltrate. No effusions or pneumothorax. Cardiomediastinal silhouette is within normal limits. No acute osseous abnormalities. [facility]-[id number] Procedure Note Interface, Radiology Results Incoming - 01/12/2018 12:01 AM CDT EXAMINATION: XR CHEST 1 VW PORTABLE CLINICAL HISTORY: chest pain tachycardia recent hx CABG COMPARISON: 11/11/2014 IMPRESSION: Mild prominence of interstitial lung markings, compatible with mild vascular congestion. Right lung base atelectasis versus infiltrate. No effusions or pneumothorax. Cardiomediastinal silhouette is within normal limits. No acute osseous abnormalities. [facility]-[id number] Performing Organization Address City/[facility]/Zipcode Phone Number [facility] [address] [place] [address] * B natriuretic peptide (01/11/2018 11:05 PM CDT) Only the most recent of 2 results within the time period is included. BNP 15 0 - 100 pg/mL [facility] [[email or web address]] DEPARTMENT OF PATHOLOGY AND GENOMIC MEDICINE Specimen Blood Performing Organization Address [facility] Phone Number [address] [place] [address] PATHOLOGY AND GENOMIC MEDICINE * Creatine kinase, total (CPK) (01/11/2018 11:05 PM CDT) Only the most recent of 2 results within the time period is included. Creatine kinase 120 39 - 308 U/L [facility] [[email or web address]] DEPARTMENT OF PATHOLOGY AND GENOMIC MEDICINE Specimen Plasma specimen Performing Organization Address [facility] Phone Number [address] [place] [address] PATHOLOGY AND [facility] * Basic metabolic panel (01/11/2018 11:05 PM CDT) Sodium 140 135 - 148 mEq/L [facility] [[email or web address]] DEPARTMENT OF PATHOLOGY AND GENOMIC MEDICINE Potassium 4.3 3.5 - 5.0 mEq/L [facility] [[email or web address]] DEPARTMENT OF PATHOLOGY AND GENOMIC MEDICINE Chloride 99 98 - 112 mEq/L [facility] [[email or web address]] DEPARTMENT OF PATHOLOGY AND GENOMIC MEDICINE CO2 25 24 - 31 mEq/L [facility] [[email or web address]] DEPARTMENT OF PATHOLOGY AND GENOMIC MEDICINE Anion gap 16@ANIO (H) 7 - 15 mEq/L [facility] [[email or web address]] DEPARTMENT OF PATHOLOGY AND GENOMIC MEDICINE BUN 17 6 - 20 mg/dL [facility] [[email or web address]] DEPARTMENT OF PATHOLOGY AND GENOMIC MEDICINE Creatinine 0.9 0.7 - 1.2 mg/dL [facility] [[email or web address]] DEPARTMENT OF PATHOLOGY AND GENOMIC MEDICINE Glucose 322 (H) 65 - 99 mg/dL [facility] [[email or web address]] DEPARTMENT OF PATHOLOGY AND GENOMIC MEDICINE Calcium 9.6 8.3 - 10.2 mg/dL [facility] [[email or web address]] DEPARTMENT OF PATHOLOGY AND GENOMIC MEDICINE Specimen Plasma specimen Performing Organization Address City/State/Zipcode Phone Number [facility] [[email or web address]] [place] [address] [place] [address] PATHOLOGY AND GENOMIC MEDICINE * ECG ED [...] ED Physician in the absence of a consulting marine engineer: yes Interpretation: Interpretation: abnormal Rate: ECG rate:137 [...] [facility] Atrial rate 137 [facility]USE NH interval 130 [facility] QRSD interval 82 [facility] QT interval 364 [facility] QTC interval 549 [facility] P axis 1 78 [facility]USE QRS axis 1 52 [facility] MUSE T wave axis 60 [facility] MUSE EKG impression Sinus tachycardia-Nonspecific [facility] MUSE T wave abnormality-Abnormal ECG Incomplete right bundle branch block-In automated comparison with ECG of 12-DEC-2017 14:26,-No significant change was found- Performing Organization Address [facility] Phone Number [facility] M[facility] [address] [place] [address] * Thyroid stimulating hormone (12/12/2017 7:35 AM CDT) TSH 1.83 0.27 - 4.20 uIU/mL [facility] [[email or web address]] DEPARTMENT OF PATHOLOGY AND GENOMIC MEDICINE Specimen Plasma specimen Performing Organization Address [facility] Phone Number [address] [place] [address] PATHOLOGY AND GENOMIC MEDICINE * Magnesium level (12/12/2017 7:35 AM CDT) Magnesium 1.8 1.6 - 2.6 mg/dL [facility] [[email or web address]] DEPARTMENT OF PATHOLOGY AND GENOMIC MEDICINE Specimen Plasma specimen Performing Organization Address [facility] Number [address] [place] [address] PATHOLOGY AND GENOMIC MEDICINE * Hemoglobin A1c (12/12/2017 7:35 AM CDT) Hemoglobin A1C 9.0 (H) 4.0 - 6.0 % [facility] [[email or web address]] DEPARTMENT OF Comment: PATHOLOGY AND GENOMIC MEDICINE Less than 6% - Goal of therapy for Type II Diabetes Less than 7%-Goal of therapy for Type I Diabetes Less than 8%-Accepta ble control for Type I or Type II Diabetes Greater than 8%-Unacceptabl e control; action indicated. (ADA94) Specimen Blood Performing Organization Address [facility] Phone Number [address] [place] [address] PATHOLOGY AND GENOMIC MEDICINE * Lipid panel (12/12/2017 7:35 AM CDT) Cholesterol 174 <200 mg/dL [facility] [[email or web address]] DEPARTMENT OF PATHOLOGY AND GENOMIC MEDICINE Triglycerides 190 (H) <150 mg/dL [facility] [[email or web address]] DEPARTMENT OF PATHOLOGY AND GENOMIC MEDICINE HDL cholesterol 28 (L) >40 mg/dL [facility] [[email or web address]] DEPARTMENT OF PATHOLOGY AND GENOMIC MEDICINE LDL cholesterol 118 (H)Comment: Result <100 mg/dL [facility] [[email or web address]] DEPARTMENT obtained by direct LDL PATHOLOGY AND measurement [facility] Lipid panel SeeBelow [facility] [[email or web address]] DEPARTMENT OF interpretation Comment: PATHOLOGY AND Total [...] specimen Performing Organization Address City/State/Zipcode Phone Number [facility] [[email or web address]] [place] [address] [place] [address] PATHOLOGY AND GENOMIC MEDICINE * Echocardiogram complete w contrast and 3D if needed (12/11/2017 11:40 AM CDT) LA volume 37.0 cm3 [facility] LA Area d A4C 50 cm2 [facility] LA diam s 4.90 cm [facility] Aortic Root 3.24 cm [facility] NH End Hull Grad 3.48 [facility] NH End Diat Nelson 0.93 [facility] D [...] LV EF,BP 52.89 % [facility] [place],d A2C 8.14 cm [facility] [place],d A4C 7.96 cm [facility] [place],s A2C 7.57 cm [facility] [place],s A4C 6.93 cm [facility] LV,s 3.16 [...] [facility] AoV area i VTI [place] 1.11 cm2/m2 [facility] LV SI MOD BP BSA [place] 19.48 ml/m2 [facility] LV Vol Index [...] Organization Address City/State/Zipcode Phone Number [facility] [address] [place] [address] * CT Abdomen Pelvis W Contrast (12/10/2017 [...] appendectomy. 2.No pelvic mass, adenopathy, fluid collection. [facility]-[id number] Procedure Note Interface, Radiology Results [facility] - 12/10/2017 9:41 PM CDT EXAMINATION: [...] 2. No pelvic mass, adenopathy, fluid collection. [id number] Performing Organization Address City/State/Zipcode Phone Number [facility] [address] [place] [address] * CT Angiogram Pe Chest (12/10/2017 9:31 [...] No acute abnormality identified in the chest. [id number] Procedure Note Interface, Radiology Results Incoming - [...] No acute abnormality identified in the chest. [facility]-[id number] Performing Organization Address [facility] Phone Number [facility] [address] [place] [address] * Partial thromboplastin time, activated (12/10/2017 9:27 PM CDT) PTT 31.3 23.0 - 36.0 sec [facility] [[email or web address]] DEPARTMENT OF Comment: PATHOLOGY AND PTT therapeutic range for [facility] unfractionated heparin is 61.0-112.0 seconds which corresponds to Anti-Xa 0.3-0.7 U/ml. Specimen Blood Performing Organization Address [facility] Phone Number [address] [place] [address] PATHOLOGY AND [facility] * Prothrombin time with INR (12/10/2017 9:27 PM CDT) Prothrombin time 13.8 12.0 - 15.0 sec [facility] [[email or web address]] DEPARTMENT OF PATHOLOGY AND GENOMIC MEDICINE INR 1.0 [facility] [[email or web address]] DEPARTMENT OF Comment: PATHOLOGY AND The International Normalized [facility] Ratio (INR) is a therapeutic monitoring tool for patients who are stable on oral anticoagulant therapy. An INR of 2.0-3.0 is suggested for deep vein thrombosis/pulmonary embolism. Specimen Blood Performing Organization Address [facility] Phone Number [address] [place] [id number] PATHOLOGY AND [facility] * Insert peripheral IV (12/10/2017 7:44 [...] procedure well with no immediate complications after 09/15/2017 Insurance Payer Benefit Subscriber ID Type Phone Address Plan / Group FERGUSON ZAMBIAN FERGUSON xxxxxxxxxx Commercial ZAMBI[employer] Advance Directives Patient has advance care planning documents on file. For more information, diann berrios contact: Jori Cramer [address] [place] [address]
--- OUTSIDE RECORDS SUMMARY | 2018-09-16 04:11 | XMS REPORT | Clinical Summary ---
Author Author TEJINDER [facility] Address Unknown Phone Unavailable Care Team Providers Care Field Service Poultry Technician Name Role Phone Sharpless PCP Allergies Comments [...] As per patient report he had an MD 4 years ago and had 2 stent [...] INFLUENZA VACCINE 04/09/2018 Results Not on fileafter 09/15/2017 Insurance Payer Benefit Subscriber ID Type Phone Address Plan / Group [facility] xxxxxxxxx HMO/POS CARE POS SELECT CHOICE Advance Directives For more information, please contact: [facility] [address] [place] [address] Date Inactivated Comments Code Status Date Activated 07/31/2014 7:34 PM Full Code 07/29/2014 10:18 AM This code status was determined by: Patient 03/20/2014 8:37 PM Full Code 03/19/2014 4:48 AM This code status was determined by: Patient
[2018-09-16] MEDS: ALBUTEROL SULF 0.083% NEB SOLN 3 ML NEB NEB SCH ×6 (05:00→21:00)
--- NOTE | 2018-09-16 08:00 | NUR ---
[facility] called for transfer
[2018-09-16] MEDS ORDERED: DIPHENHYDRAMINE HCL INJ 50 MG/ML VIAL IV NR (08:15)
[2018-09-16] MEDS: OSELTAMIVIR PHOSPHATE 75 MG CAP PO SCH ×2 (08:19→18:21)
--- NOTE | 2018-09-16 08:21 | NUR ---
pt did not want to eat last night and no tray available and shift report to hold insulin last night.
--- NOTE | 2018-09-16 08:25 | NUR ---
no urine cx ordered and remainder of urine discarded.
--- NOTE | 2018-09-16 09:00 | NUR ---
ASSUMED CARE AT THIS TIME. PATIENT TRANSFERRED TO MAIN ER FROM [facility]. PATIENT AWAKE AND ALERT. RESP EVEN AND UNLABORED. SKIN WARM AND DRY. NO SIGNS OF ACUTE DISTRESS NOTED AT THIS TIME. DENIEDS ANY C/O AT THIS TIME.
--- NOTE | 2018-09-16 10:11 | NUR ---
PATIENT MOANING AND REQUESTING MORPHINE FOR C/O LOWER BACK AND CHEST PAIN. NOTIFIED PATIENT NO PRN ORDERS FOR MORPHINE ON MED PROFILE, TYLENOL WITH CODIENE AVIALABLE PRN, PATIENT DECLINED, STATES HE RECEIVED MORPHINE AT [facility] AND "IT WORKED A LITTLE BUT IT DIDNT LAST LONG". NO SIGNS OF ACUTE DISTRESS NOTED AT THIS TIME. WILL NOTIFY DR Luiz HAGEN FOR ORDERS.
--- NOTE | 2018-09-16 11:24 | NUR ---
VERBAL REPORT GIVEN TO CHERISE AMARO.
[2018-09-16] MEDS: IPRATROPIUM BROMIDE 0.02% 2.5 ML NEB NEB SCH ×2 (13:00→19:00)
[2018-09-16] MEDS ORDERED: BYSTOLIC10 MG PO (13:25)
[2018-09-16] MEDS ORDERED: ATORVASTATIN CA40 MG PO (13:25)
[2018-09-16] MEDS ORDERED: AMIODARONE HCL200 MG PO (13:25)
[2018-09-16] MEDS ORDERED: ALBUTEROL/IPRATROPIUM 3 ML NEB NEB PRN (13:30)
[2018-09-16] MEDS ORDERED: ONDANSETRON HCL INJ 2MG/ML 2ML 2 MG/ML VIAL IV PRN (13:30)
[2018-09-16] MEDS ORDERED: MORPHINE SULFATE INJ 4 MG/ML INJ 1ML IV PRN (13:30)
[2018-09-16] MEDS ORDERED: PROMETHAZINE 12.5MG/ NACL 0.9% 12.5 MG/50 ML BAG IV PRN (13:45)
[2018-09-16] MEDS ORDERED: DIPHENHYDRAMINE HCL INJ 50 MG/ML VIAL IV PRN (13:45)
[2018-09-16] MEDS: BENZONATATE 100 MG CAP PO SCH ×2 (15:32→20:03)
[2018-09-16] MEDS: PANTOPRAZOLE SOD 40 MG TABEC PO SCH (15:32)
[2018-09-16 17:45] LABS: CREATINE KINASE 293 IU/L (30-200)
--- NOTE | 2018-09-16 17:50 | NUR ---
report received from Leonides. Patient to be brought to unit via stretcher in stable condition
[2018-09-16] MEDS: AMIODARONE HCL 200 MG TAB PO SCH (18:21)
--- NOTE | 2018-09-16 18:23 | NUR ---
PT DOES NOT HAVE PIV ACCESS. DR Emilie HAGEN MADE AWARE. MEDS SWITCHED TO PO AND IM.
--- NOTE | 2018-09-16 18:23 | NUR ---
MULTIPLE IV ATTEMPTS MY SONDRA LUONG AND ALEC Smith USING ULTRASOUND. UNSUCCESFUL ATTEMPTS, DR HAGEN CONTACTED IN INFORMED OF CURRENT SITUATION. INFORMED PATIENT IS REQUESTING A PICC LINE AND/OR CENTRAL LINE , DR HAGEN SAID NO PICC LINE OR CENTRAL LINE. DR. HAGEN STATES THAT PATIENT WILL BE DISCHARGED IN THE MORNING FOR DIAGNOSIS OF BRONCHITIS, NO PNEUMONIA ON XRAY. PATIENT CONCERNED ABOUT HIS PAIN MEDICATION, PATIENT INFORMED THAT HE IS ADMITTED FOR BRONCHITIS AT THIS TIME AND HE CAN STILL GET COUGH MEDICATION, ORAL ANTIBIOTICS AND BREATHING TREATMENTS FOR HIS ADMITTING DIAGNOSIS. PATIENT INFORMED THAT PAIN MEDICATION CAN BE GIVEN IM AND ALL OTHER MEDICATIONS CAN BE GIVEN ORALLY PER DR HAGEN, PATIENT STATES, "I GUESS THAT WILL DO, IM JUST CONCERNED THAT THE PAIN MEDICATION WILL TAKE TOO LONG TO ABSORB". AGAIN PATIENT INFORMED THAT HE WILL BE ABLE TO GET MEDICATION THAT WILL HELP HIM, PATIENT AGREES TO STATES CARE PLAN.
--- NOTE | 2018-09-16 18:28 | NUR ---
patient arrived on unit via stretcher in stable condition. Call finney within reach and bed in lowest position.
[2018-09-16] MEDS ORDERED: GUAIFENESIN/DEXTROMETHORPHAN LIQD 5 ML UDC PO PRN (18:30)
--- NOTE | 2018-09-16 18:48 | NUR ---
rounded with overnight houseperson nurse, patient aware of change. Call finney within reach and bed in lowest position.
[2018-09-16] MEDS: MORPHINE SULFATE INJ 4 MG/ML INJ 1ML IM PRN ×2 (19:22→23:30)
[2018-09-16] MEDS: DIPHENHYDRAMINE HCL 25 MG CAP PO PRN (19:23)
[2018-09-16] MEDS: PROMETHAZINE HCL 25 MG TAB PO PRN (19:23)
[2018-09-16 20:00] VITALS: BP_SYST 112; BP_SYST 143; BP_DIAS 60; BP_DIAS 62
[2018-09-16] MEDS: NEBIVOLOL 10 MG TAB PO SCH (20:00)
[2018-09-16] MEDS ORDERED: GABAPENTIN 400 MG CAP PO SCH (21:00)
[2018-09-16] MEDS ORDERED: ATORVASTATIN 40 MG TAB PO SCH (21:00)
[2018-09-16 21:54] VITALS: BP 112/62
[2018-09-16 22:50] VITALS: BP 112/62
[2018-09-17] VITALS: BP 123/58
[2018-09-17] MEDS: IPRATROPIUM BROMIDE 0.02% 2.5 ML NEB NEB SCH ×4 (01:00→19:00)
[2018-09-17] MEDS ORDERED: LEVOFLOXACIN 750MG/D5W 150ML IV SCH (01:00)
[2018-09-17] MEDS: ALBUTEROL SULF 0.083% NEB SOLN 3 ML NEB NEB SCH ×5 (01:00→15:00)
[2018-09-17] MEDS: PROMETHAZINE HCL 25 MG TAB PO PRN ×2 (01:30→12:24)
[2018-09-17] MEDS: DIPHENHYDRAMINE HCL 25 MG CAP PO PRN ×2 (01:30→12:24)
[2018-09-17] MEDS: MORPHINE SULFATE INJ 4 MG/ML INJ 1ML IM PRN ×3 (03:30→19:15)
[2018-09-17 04:00] VITALS: BP 118/79
[2018-09-17] MEDS ORDERED: LEVOFLOXACIN 500 MG TAB PO SCH (06:00)
[2018-09-17 06:28] LABS: BASOPHILS # (AUTO) 0.1 (0.0-0.1); EOSINOPHILS # (AUTO) 0.5 (0.0-0.4); HEMATOCRIT 42.8 % (38.2-49.6); HEMOGLOBIN 13.7 g/dL (14.0-18.0); LYMPHOCYTES # (AUTO) 1.4 (1.0-3.2); LYMPHOCYTES % 15.3 % (18.0-39.1); MEAN CORPUSCULAR HEMOGLOBIN 27.5 pg (28-32); MEAN CORPUSCULAR VOLUME 85.9 fL (81-99); MONOCYTES # (AUTO) 0.7 (0.2-0.8); NEUTROPHILS # (AUTO) 6.4 (2.1-6.9); NEUTROPHILS % 70.2 % (38.7-80.0); PLATELET COUNT 217 x10e3/uL (140-360); RED BLOOD COUNT 4.98 x10e6/uL (4.3-5.7); RED CELL DISTRIBUTION WIDTH 13.6 % (11.7-14.4)
[2018-09-17 06:31] LABS: ANION GAP 13.9 mmol/L (8-16); BLOOD UREA NITROGEN 11 mg/dL (7-26); BUN/CREATININE RATIO 14 (6-25); CALCIUM 8.8 mg/dL (8.4-10.2); CARBON DIOXIDE 24 mmol/L (22-29); CHLORIDE 101 mmol/L (98-107); CREATININE, SERUM 0.81 mg/dL (0.72-1.25); EST GLOMERULAR FILTRATION RATE > 60 ML/MIN (60-); GLUCOSE 252 mg/dL (74-118); POTASSIUM 3.9 mmol/L (3.5-5.1); SODIUM 135 mmol/L (136-145)
[2018-09-17 06:55] LABS: CREATINE KINASE MB 1.2 ng/mL (0-5.0)
--- NOTE | 2018-09-17 07:45 | NUR ---
Patient resting in bed, Not in any distress, denies any SOB, Pain 5/10 on lower back
[2018-09-17] MEDS: INSULIN REGULAR, HUMAN 100 UNIT/1 ML 3ML VIAL SQ SCH ×3 (07:55→16:30)
[2018-09-17 07:56] VITALS: BP 129/63
[2018-09-17] MEDS: BENZONATATE 100 MG CAP PO SCH ×2 (08:34→16:00)
[2018-09-17] MEDS: GABAPENTIN 300 MG CAP PO SCH ×2 (08:34→12:38)
[2018-09-17] MEDS: OSELTAMIVIR PHOSPHATE 75 MG CAP PO SCH ×2 (08:34→18:33)
[2018-09-17] MEDS: NEBIVOLOL 10 MG TAB PO SCH ×2 (08:40→18:33)
[2018-09-17] MEDS: AMIODARONE HCL 200 MG TAB PO SCH ×2 (08:40→18:33)
[2018-09-17] MEDS: PANTOPRAZOLE SOD 40 MG TABEC PO SCH ×2 (08:56→18:33)
[2018-09-17] MEDS ORDERED: DULOXETINE HCL 30 MG DELAYED RELEASE PO SCH (09:00)
[2018-09-17] MEDS ORDERED: ASPIRIN 81 MG ENTERIC COATED PO SCH (09:00)
[2018-09-17] MEDS ORDERED: LISINOPRIL 10 MG TAB PO SCH (09:00)
[2018-09-17] MEDS ORDERED: CLOPIDOGREL BISULFATE 75 MG TAB PO SCH (09:00)
--- NOTE | 2018-09-17 09:21 | NUR ---
SOCIAL WORK INITIAL ASSESSMENT Small Animal Veterinarian to bedside to discuss plan of care with patient/family. CM/SW role and care transitions discussed. Anticipated discharge plan discussed along with duration of care. CM/SW discussed patients right to make decisions in care. CM/SW work hours given. 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 Name and number was also written on the patients whiteboard. Patient verbalized understanding of discussion. CM will follow-up with ongoing discharge and transition of care needs.
[2018-09-17 11:25] VITALS: BP 129/63
[2018-09-17 12:00] VITALS: BP 115/68
--- NOTE | 2018-09-17 14:20 | NUR ---
Spoked to radiology dept to read the chest xray result
[2018-09-17 15:34] VITALS: BP 117/69
--- NOTE | 2018-09-17 16:51 | Diagnostic Imaging Report ---
EXAM: CHEST 2 VIEWS DATE: 09/17/2018 11:54 AM INDICATION: Shortness of breath COMPARISON: Chest x-ray, 09/15/2018 FINDINGS: Lines and tubes: None The cardiac silhouette is prominent, likely accentuated by low lung volumes. There is mild atelectasis at the lung bases. No pulmonary consolidation, pleural effusion or pneumothorax. Upper abdomen unremarkable. No acute bony abnormality. Wire sternotomy sutures are again noted. IMPRESSION: No evidence for acute disease allowing for low lung volumes. Signed by: Dr. Steve Herrera M.D. on 09/17/2018 4:47 PM
--- NOTE | 2018-09-17 18:31 | NUR ---
Recvd call back from Dr Emilie Smith, spoked to him regarding CXR result, new order given to discharge patient
[2018-09-17] MEDS ORDERED: ALBUTEROL SULF 0.083% NEB SOLN 3 ML NEB NEB SCH (19:00)
== END 2018-09-17 20:00 | disposition home or self-care (01) | DRG 203 ==
LOC: FSED 22:31 → ERHOLD 09-16 01:18 → IMCU 09-16 18:44
DX: J20.9 Acute bronchitis, unspecified (principal); E11.9 Type 2 diabetes mellitus without complications; I25.10 Atherosclerotic heart disease of native coronary artery without angina pectoris; E78.5 Hyperlipidemia, unspecified; Z95.1 Presence of aortocoronary bypass graft
CPT/HCPCS: 36415; 71046; 80048; 81003; 82550; 82553; 82948; 83518; 83605; 83880; 84484; 85025; 85379; 87040; 87400; 93005; 94640; 96374; 96375; 99284; J1200; J2270; J7030